=== PATIENT | male | born 1970 | race Native Hawaiian/Other Pacific Islander ===

== ENCOUNTER 2020-09-28 14:23 | Outpatient (REF) | payer OTHER, SELFPAY ==
--- NOTE | ~2020-09-28 | XR_ITS ---
EXAMINATION: XR HAND, LEFT CLINICAL INFORMATION: Injury COMPARISON: 02/12/2009 TECHNIQUE: PA, lateral, and oblique views of the left hand. FINDINGS: There is a fracture at the base of the 5th proximal phalanx with dorsal angulation. Possible remote, healed fracture at the dorsal aspect of the base of the 4th middle phalanx. There is fusion of the 2nd DIP joint. XR/XR hand LT min 3V IMPRESSION: Acute angulated fracture of the base of the 5th proximal phalanx.
== END 2020-09-28 14:24 | disposition home or self-care (01) ==
LOC: HO.HMGCX 14:23
PROVIDERS: PCP Internal Medicine; Visit Provider Nurse Practitioner Family
DX: S69.92XA Unspecified injury of left wrist, hand and finger(s), initial encounter (principal)
CPT/HCPCS: 73130

== ENCOUNTER 2020-10-10 08:32 | Outpatient (REF) | payer OTHER, SELFPAY ==
--- NOTE | ~2020-10-10 | XR_ITS ---
EXAMINATION: XR HAND, LEFT CLINICAL INFORMATION: Pain left hand. COMPARISON: None TECHNIQUE: PA, lateral, and oblique views of the left hand. FINDINGS: No visible acute fracture, dislocation or subluxation seen. There is diminished PIP and DIP joint space. No fracture or dislocation seen involving PIP joint left fifth digit.The soft tissues are normal. XR/XR hand LT min 3V IMPRESSION: No visible acute fracture or dislocation especially PIP joint fifth digit. Minimal loss of PIP and DIP joint space all digits left hand.
== END 2020-10-10 08:33 | disposition home or self-care (01) ==
LOC: HO.HOSX 08:32
PROVIDERS: Visit Provider Orthopaedic Surgery
DX: M79.642 Pain in left hand (principal); S62.617A Displaced fracture of proximal phalanx of left little finger, initial encounter for closed fracture
CPT/HCPCS: 73130; 99202

== ENCOUNTER 2020-10-11 11:55 | Day surgery (SDC) | payer OTHER, SELFPAY ==
--- NOTE | ~2020-10-11 | FL_ITS ---
EXAMINATION: XR FLUOROSCOPY WITH IMAGES CLINICAL INFORMATION: Finger ORIF. COMPARISON: None. TECHNIQUE: Fluoroscopy performed by Dorothy Morris. Fluoroscopy time: 29.1 seconds Dose: [id number] mGy-cm2 Images: 3 FINDINGS: The base of the 5th proximal phalanx 5th digit has been stabilized with 2 pins in alignment. No additional fractures seen. FL/FL guidance in OR IMPRESSION: Normal alignment proximal end proximal phalanx 5th digit status post ORIF.
[2020-10-11 12:16] VITALS: BMI 32.9
[2020-10-11 12:20] VITALS: BP 142/84; PULSE 82; RESP 18; TEMP 36.5; O2SAT 97
--- NOTE | 2020-10-11 12:33 | P.CONAN_ITS ---
[facility] Active Problems Active Problems: All Active Problems (Updated 10/10/20 @ 15:41 by Dorothy aguirre MD) Fracture of proximal phalanx of left little finger (Acute) Fracture, finger (Acute) Hand injury (Acute) Alcoholism (Acute) GERD without esophagitis (Acute) Obesity (BMI 30-39.9) (Acute) Anxiety (Acute) Insomnia (Acute) Gout (Acute) Sarcoidosis (Acute) Pure hypercholesterolemia (Acute) Asthma (Acute) Annual physical exam (Acute) Past Medical History Medical History Alcoholism Anxiety Asthma GERD without esophagitis Gout Insomnia Obesity (BMI 30-39.9) Pure hypercholesterolemia Sarcoidosis Family History Family History Father No problems noted. 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 Loose Loose/Missing/Broken Teeth: Yes Heart: RRR Assessment and Plan Assessment Anesthesia Assessment: Anesthesia Plan Discussed and Chart Reviewed Final Anesthetic Review NPO: Yes ASA Class: III Final Preanesthetic Review: No Changes in Pt Med Stat, Meds/Allgs Chart Revie wed, Consent Obtained/Reviewed and Anes Risks/Benef Reviewed Patient Risk: Intermediate Procedure Risk: Low Anesthetic Plan Anesthetic Plan: GA Disposition: Standard PACU
--- NOTE | 2020-10-11 14:30 | MHC.SHP ---
Pre-Procedural Eval Section B Chief Complaint: left little finger fx Allergies: Allergies Allergy/AdvReac Type Severity Reaction Status Date / Time ENVIRONMENTAL Allergy Unknown ITCHY Uncoded 05/16/20 16:36 THROAT Plan I have reviewed the history and physical and performed a pertinent physical examination on my patient. No changes have occurred unless specified.
--- NOTE | 2020-10-11 14:30 | W.PM.OPN ---
Operative Note Operative Note Date of Service: 10/11/20 Narrative: Operative Note Narrative: Preop diagnosis: 1. Left small finger proximal phalanx base fracture Postop diagnosis: Same Procedure: 1. Left small finger proximal phalanx base fracture closed reduction percutaneous pinning 2. Ulnar nerve block Surgeon: Dorothy Morris MD Anesthesia: General Findings: finger fracture Implants: 0.045 K-wires x2 Tourniquet time: None EBL: Minimal Specimen: None Drains: None Complications: None Disposition: Brought to the recovery room in stable condition Plan: Follow-up in 10-14 days for a wound check, postop radiographs and for placement in a short-arm finger spica cast or splint Anticipate K-wire removal in 4 weeks based on interval bony healing Educate the patient that full fracture healing anticipated in approximately 8-12 weeks. Indications: The patient is 50 years old with a 2-week-old left small finger proximal phalanx base fracture . The risks and benefits of operative treatment, including but not limited to risk of damage to blood vessels, nerves, tendons, infection, recurrence, delayed or nonunion of fracture, persistent pain or numbness, incomplete resolution of preoperative symptoms, or need for further surgery were discussed with the patient and they wished to proceed with surgery. Procedure: Once consent was obtained patient was brought back to the operating suite and placed in the operating table in a supine position. . Perioperative antibiotics and general anesthesia was administered by the anesthesia team. A tourniquet was applied to the proximal aspect of the left upper extremity and the limb was prepped and draped in a standard surgical fashion. Tourniquet was not inflated during the case. The FluoroScan was used during the case to assist with our fracture reduction and placement of all implants. A closed reduction was performed on the patient's left small finger proximal phalanx base fracture. A 0.045 K-wire was placed through the ulnar base of the proximal phalanx. This was advanced across the fracture site and into the shaft. A 2nd 0.045 K-wire was placed through the radial base of the proximal phalanx and similarly advanced across the fracture site and into the shaft. Fracture alignment was assessed for both angular and rotational malalignment. Once satisfied with our fracture reduction and implant placement, the K-wires were bent and cut short and pin caps applied. Final fluoroscopic images were then obtained. The wounds were copiously irrigated with normal saline. An ulnar nerve block was then performed by infiltrating about the ulnar nerve at the wrist with some 1% lidocaine with epinephrine for postop pain control. A Sterile dressing and short volar splint extending to the forearm was applied. The patient appears to have tolerated the procedure well and with no complications. All digits were well vascularized at the conclusion of the case.
[2020-10-11 15:21] VITALS: BP 128/73; PULSE 109; RESP 16; TEMP 36.3; O2SAT 99
[2020-10-11 15:26] VITALS: BP 127/64; PULSE 101; RESP 17; O2SAT 96
[2020-10-11 15:31] VITALS: BP 131/71; PULSE 91; RESP 17; O2SAT 95
[2020-10-11 15:36] VITALS: BP 134/81; PULSE 90; RESP 18; TEMP 36.3; O2SAT 95
== END 2020-10-11 16:11 | disposition home or self-care (01) ==
PROVIDERS: PCP Internal Medicine; Visit Provider Orthopaedic Surgery
PROC: (CPT 26727; principal; 2020-10-11 14:20)
DX: S62.617A Displaced fracture of proximal phalanx of left little finger, initial encounter for closed fracture (principal); X58.XXXA Exposure to other specified factors, initial encounter; Y93.9 Activity, unspecified; Y92.9 Unspecified place or not applicable; Y99.8 Other external cause status; J45.909 Unspecified asthma, uncomplicated; D86.9 Sarcoidosis, unspecified; K21.9 Gastro-esophageal reflux disease without esophagitis; Z79.899 Other long term (current) drug therapy; F17.210 Nicotine dependence, cigarettes, uncomplicated
CPT/HCPCS: 26727; J1100; J2250; J2405; J3010

== ENCOUNTER → 2020-10-16 09:49 | Outpatient (BNVA) | payer OTHER, SELFPAY | PROVIDERS: PCP Internal Medicine; Visit Provider Orthopaedic Surgery ==

== ENCOUNTER 2020-10-18 22:42 | Emergency (ER) | payer OTHER, SELFPAY ==
--- NOTE | ~2020-10-18 | XR_ITS ---
EXAMINATION: XR HAND, LEFT CLINICAL INFORMATION: Pain status post pinning COMPARISON: Hand radiographs 10/10/2020 TECHNIQUE: PA, lateral, and oblique views of the left hand. FINDINGS: 2 pins are present through the fracture of the proximal fifth phalanx. Some details obscured by the overlying bandages and dressings. No new fractures are seen. Alignment is excellent. XR/XR hand LT min 3V IMPRESSION: No abnormalities seen status post pinning proximal phalanx fifth digit.
[2020-10-18 22:49] VITALS: BP 115/61; PULSE 101; RESP 16; TEMP 36.8; O2SAT 94; BMI 32.9
--- NOTE | 2020-10-19 00:54 | ED.EXTPRO ---
HPI - Extremity Problem General Chief complaint: Extremity Problem Stated complaint: Hand swelling post op Time Seen by Provider: 10/19/20 00:12 Source: patient Mode of arrival: ambulatory Limitations: no limitations Related Data Previous Rx's Medication Instructions Recorded albuterol sulfate 90 mcg/actuation 2 puff PO Q6-8H PRN 30 Days #8.5 g 05/16/20 aerosol inhaler atorvastatin 10 mg tablet 10 mg PO DAILY 90 Days #90 tab 05/16/20 colchicine 0.6 mg tablet 0.6 mg PO DAILY 30 Days #30 tab 05/16/20 fluticasone propionate 110 1 puff INHALATION BID 30 Days #12 g 05/16/20 mcg/actuation HFA aerosol inhaler montelukast 10 mg tablet 10 mg PO DAILY 30 Days #30 tab 05/16/20 pyridoxine (vitamin B6) 100 mg 100 mg PO DAILY 30 Days #30 tab 05/16/20 tablet thiamine HCl (vitamin B1) 100 mg 100 mg PO DAILY 30 Days #30 tab 05/16/20 tablet trazodone 50 mg tablet 50 mg PO BEDTIME PRN 30 Days #30 05/16/20 tab oxycodone-acetaminophen 1 tab PO Q6H PRN #10 tab 10/11/20 oxycodone 5 mg PO BID PRN 3 Days #10 tab 10/19/20 Allergies Allergy/AdvReac Type Severity Reaction Status Date / Time ENVIRONMENTAL Allergy Unknown ITCHY Uncoded 10/18/20 22:54 THROAT Review of Systems Review of Systems: Constitutional: No Weight loss, No Fever, No Chills, No Night Sweats, No Fatigue, No Malaise ENT/Mouth: No Hearing loss, No Ear Pain, No Nasal Congestion, No Sinus Pain, No Hoarseness, No sore throat, No Rhinorrhea, No Swallowing Difficulty Eyes: No Eye Pain, No Swelling, No Redness, No Foreign Body, No Discharge, No Vision Changes Cardiovascular: No Chest Pain, No SOB, No Dyspnea on Exertion, No Orthopnea, No Edema, No Palpitations Respiratory: No Cough, No Sputum, No Wheezing, No Smoke Exposure, No Dyspnea Musculoskeletal: No joint pain, No Myalgias, No Joint Swelling, As noted HPI Skin: No Skin Lesions, No rash Neuro: No Weakness, No Numbness, No Paresthesias, No Loss of Consciousness, No Dizziness, No Headache Psych: No Social Issues Heme/Lymph: No Bruising, No Bleeding,No Lymphadenopathy Endocrine: No Polyuria, No Polydipsia, No Temperature Intolerance Yes all other systems are reviewed and are negative [facility] Past Medical History Medical History Alcoholism Anxiety Asthma GERD without esophagitis Gout Insomnia Obesity (BMI 30-39.9) Pure hypercholesterolemia Sarcoidosis Surgical History No pertinent past surgical history Family History Family History Father No problems noted. 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 Physical Exam Vital Signs: Vital Signs: Last Vital Signs Temp 98.2 F 10/18/20 22:49 Pulse 101 H 10/18/20 22:49 Resp 16 10/18/20 22:49 BP 115/61 10/18/20 22:49 Pulse Ox 94 10/18/20 22:49 Body Mass Index 32.9 reviewed Const: General: cooperative and healthy appearing; No acute distress or intoxicated appearing Nutritional Appearance: average body habitus Orientation/consciousness: patient oriented x3 HENMT: Head: Yes normal to inspection Ears: hearing grossly normal bilaterally Chest: Chest palpation & inspection: normal inspection of the chest Resp: Effort & Inspection: normal respiratory effort Cardio: Rhythm: regular rhythm Heart sounds: S1 normal heart sound present and S2 normal heart sound present : General: Yes no CVA tenderness Back/Spine/Pelvis: Back: no CVA tenderness Skin: Other: left hand with ulnar gutter splint. No obvious erythema or cellulitis. Very minimal swelling. Pulses within normal limits. Cap refill within normal limits. Pulse ox reads 100% on each finger. There is zerofoam dressing on the site. General skin exam: no rashes or lesions noted Neuro: General: patient oriented x3 Extrem: General: Yes normal to inspection Course Course Course Narrative: Interview 50-year-old male presents with complaint of pain at surgical site he is status post Left small finger proximal phalanx base fracture closed reduction percutaneous pinning on October [address] Morris. He has a splint on in place. Exam does not reveal any signs of acute infection. X-ray without any acute abnormalities. He is having pain at the surgical site I will give him analgesia for this. I did discuss case with Dr. Choi on-call Ortho given that it is 01:00 he is to call the office at 08:[address] Morris and get in to see her. Patient verbalized understanding and is clear with plan. MDM - Extremity (Nontraumatic) Imaging Data Hand x-ray: Radiologist's impression: [address] [id number] ReportSigned Patient: Hua Rose AMR#: [id number]: 1970Acct:[id number]/Sex: 50 / MADM Date: 10/18/20Loc: HO.EDAttending Dr: Ordering Physician: Gus Schultz NP Date of Service: 10/19/20 Procedure(s): XR hand LT min 3V Accession Number(s): [id number] cc: Gus Schultz NP~ EXAMINATION: XR HAND, LEFT CLINICAL INFORMATION: Pain status post pinning COMPARISON: Hand radiographs 10/10/2020 TECHNIQUE: PA, lateral, and oblique views of the left hand. FINDINGS: 2 pins are present through the fracture of the proximal fifth phalanx. Some details obscured by the overlying bandages and dressings. No new fractures are seen. Alignment is excellent. XR/XR hand LT min 3V IMPRESSION: No abnormalities seen status post pinning proximal phalanx fifth digit. Dictated By:TABATHA OLIVARES MDSigned By:<Electronically signed by TABATHA OLIVARES MD in OV>10/19/20 0050 DD/ 0012TD/TT: Pathology Supervisor: Discharge Plan Discharge Clinical Impression: Fracture of proximal phalanx of left little finger, Post-op pain Patient Disposition: Home, Self-Care Instructions: Pain Management After Surgery (DC), Splint Care (ED) Additional Instructions: Please take medication prescribed Please see Dr. Morris her hand surgeon in 7 hours in the office please call at 8 a.m. Monitor for any signs of infections review to X-ray showed no acute abnormality Splint care as instructed Prescription oxycodone for pain was sent over to her pharmacy Thank you Prescriptions: New oxycodone 5 mg tablet 5 mg PO BID PRN (Reason: pain) 3 Days Qty: 10 RF: 0 No Action oxycodone-acetaminophen 5-325 mg tablet 1 tab PO Q6H PRN (Reason: pain) Qty: 10 RF: 0 Flovent HFA 110 mcg/actuation HFA aerosol inhaler 1 puff inhalation BID 30 Days Qty: 12 RF: 12 albuterol sulfate 90 mcg/actuation HFA aerosol inhaler 2 puff PO Q6-8H PRN (Reason: shortness of breath or wheezing) 30 Days Qty: 8.5 RF: 12 atorvastatin 10 mg tablet 10 mg PO DAILY 90 Days Qty: 90 RF: 1 colchicine 0.6 mg tablet 0.6 mg PO DAILY 30 Days Qty: 30 RF: 5 montelukast 10 mg tablet 10 mg PO DAILY 30 Days Qty: 30 RF: 5 trazodone 50 mg tablet 50 mg PO BEDTIME PRN (Reason: insomnia) 30 Days Qty: 30 RF: 3 thiamine HCl (vitamin B1) 100 mg tablet 100 mg PO DAILY 30 Days Qty: 30 RF: 12 pyridoxine (vitamin B6) 100 mg tablet 100 mg PO DAILY 30 Days Qty: 30 RF: 12 Referrals: Dorothy Morris MD [Physician] - 1 day (Call office in the morning for follow-up)
[2020-10-19 01:08] VITALS: BP 120/89; PULSE 90; RESP 16; TEMP 36.9; O2SAT 100
[2020-10-19] MEDS: oxyCODONE HCl Immed Release 5 MG TABLET PO (01:14)
--- NOTE | 2020-10-19 01:18 | PC.NURSE ---
PT SPLINT TO RIGHT HAND WRAPPED REWRAPPED WITH NEW HEATHER WRAP +CMS TO FINGERS. RAMONA CHERY SPOKE WITH ORTHO THEY WILL SEE HIM IN OFFICE TOMORROW.
== END 2020-10-19 01:07 | disposition home or self-care (01) ==
PROVIDERS: Emergency Provider Emergency Medicine; PCP Internal Medicine
DX: G89.18 Other acute postprocedural pain (principal); S62.617D Displaced fracture of proximal phalanx of left little finger, subsequent encounter for fracture with routine healing; X58.XXXD Exposure to other specified factors, subsequent encounter
CPT/HCPCS: 73130; 99283; 99284

== ENCOUNTER 2020-10-22 09:37 | Outpatient (REF) | payer OTHER, SELFPAY ==
--- NOTE | ~2020-10-22 | XR_ITS ---
EXAMINATION: XR HAND, LEFT CLINICAL INFORMATION: Left hand pain COMPARISON: 10/19/2020 and 10/10/2020 TECHNIQUE: PA, lateral, and oblique views of the left hand. FINDINGS: Overlying splint has been removed. 2 pins traversing the fifth proximal phalanx appear well positioned without evidence of loosening. Left fifth proximal phalangeal fractures are well approximated. Soft tissues are mildly prominent. Alignment and articulations are maintained. Remaining bony structures are unremarkable in appearance. XR/XR hand LT min 3V IMPRESSION: Interval splint removal following pinning left fifth proximal phalangeal fracture. Hardware appears appropriate in position with satisfactory approximation of the fifth proximal phalangeal base fractures.
== END 2020-10-22 09:38 | disposition home or self-care (01) ==
LOC: HO.HOSX 09:37
PROVIDERS: Visit Provider Orthopaedic Surgery
DX: S62.617A Displaced fracture of proximal phalanx of left little finger, initial encounter for closed fracture (principal)
CPT/HCPCS: 73130; 99212

== ENCOUNTER 2020-10-26 10:30 | Outpatient (REF) | payer OTHER, SELFPAY ==
--- NOTE | ~2020-10-26 | XR_ITS ---
EXAMINATION: XR CHEST CLINICAL INFORMATION: Moderate persistent asthma COMPARISON: 03/14/2019 TECHNIQUE: 2 views of the chest were obtained. FINDINGS: Lungs are clear. No focal consolidation or mass. Normal pulmonary vascularity. No pleural effusion or pneumothorax. Normal heart size. Right paratracheal and bilateral bilateral hilar prominence. XR/XR chest 2V IMPRESSION: Right paratracheal and bilateral hilar prominence similar to the prior study 03/14/2019. Earlier chest CT 02/02/2014 showed lymphadenopathy consistent with history of sarcoid.
[2020-10-26 11:13] LABS: Basophils Percent Auto 0.5 % (0-2); Eosinophils Absolute Auto 0.5 X10*3/uL (0.0-0.4); Eosinophils Percent Auto 8.4 % (0-4); Hematocrit 46.6 % (42-52); Hemoglobin 15.6 g/dl (14.0-18.0); Imm Gran Abs Auto 0.02 X10*3/uL (0.00-0.03); Imm Gran Pct Auto 0.4 % (0.0-0.4); Lymphocytes Absolute Auto 1.9 X10*3/uL (1.2-4.9); Lymphocytes Percent Auto 32.4 % (20-40); MANUAL DIFF FLAG SCAN; Mean Corpuscular HGB Conc 33.5 g/dl (31.0-36.0); Mean Corpuscular Hemoglobin 29.9 pg (27.0-33.0); Mean Corpuscular Volume 89.4 fL (80-98); Mean Platelet Volume 9.9 fL (9.4-12.4); Monocytes Absolute Auto 0.5 X10*3/uL (0.1-1.2); Monocytes Percent Auto 9.3 % (2-11); Neutrophils Absolute Auto 2.8 X10*3/uL (2.0-8.3); PLT CLUMP 1; Red Blood Count 5.21 X10*6/uL (4.60-5.80); Red Cell Distribution Width 12.8 % (11.0-16.0); SCAN SMEAR FLAG 1
[2020-10-26 11:27] LABS: Platelet Count 138 X10*3/uL (160-400); White Blood Count 5.6 X10*3/uL (4.8-10.8)
[2020-10-26 11:51] LABS: Alanine Aminotransferase 51 U/L (0-40); Albumin Level 4.4 g/dL (3.5-5.0); Alkaline Phosphatase 113 U/L (39-117); Anion Gap 14 (12-20); Aspartate Amino Transferase 70 U/L (5-37); Bilirubin Total 0.8 mg/dL (0.0-1.0); Blood Urea Nitrogen 16 mg/dL (9-16); Calcium 9.9 mg/dL (8.4-10.2); Carbon Dioxide 26 mmol/L (22-29); Chloride 102 mmol/L (96-108); Cholesterol 184 mg/dL; Estimated Glomerular Filt Rate > 60; Glucose Fasting 87 mg/dL (60-99); HDL Cholesterol 36 mg/dL; LDL Cholesterol Calculated 122 mg/dl; Potassium 4.5 mmol/L (3.3-5.1); Sodium 137 mmol/L (135-145); Total Protein 7.2 g/dL (6.5-8.0); Triglycerides 131 mg/dL
[2020-10-26 12:03] LABS: Uric Acid 7.5 mg/dL (3.4-7.0)
[2020-10-26 12:11] LABS: TSH reflex Free T4 1.62 uIU/mL (0.32-4.0); Vitamin D 25-OH Total 26.9 ng/mL (>30)
[2020-10-26 12:22] LABS: Folate 11.4 ng/mL (> or = 4.0); Vitamin B12 397 pg/mL (200-900)
[2020-10-26 13:02] LABS: Glucose Urine UA NEG (NEG); Leukocyte Esterase Urine NEG (NEG); Nitrite Urine NEG (NEG); Specific Gravity - Urine 1.025 (1.005-1.025); Urine Blood NEG (NEG); Urine Ketones NEG (NEG); Urine Protein NEG (NEG-TRACE)
[2020-10-26 13:06] LABS: Appearance Urine CLEAR; Color Urine YELLOW
== END 2020-10-26 10:31 | disposition home or self-care (01) ==
LOC: HO.XRAY 10:30
PROVIDERS: PCP Internal Medicine; Visit Provider Internal Medicine
DX: Z00.00 Encounter for general adult medical examination without abnormal findings (principal); S62.617D Displaced fracture of proximal phalanx of left little finger, subsequent encounter for fracture with routine healing; F10.20 Alcohol dependence, uncomplicated; L03.90 Cellulitis, unspecified; E78.00 Pure hypercholesterolemia, unspecified; D86.9 Sarcoidosis, unspecified; F41.9 Anxiety disorder, unspecified; M10.9 Gout, unspecified; J45.41 Moderate persistent asthma with (acute) exacerbation; K21.9 Gastro-esophageal reflux disease without esophagitis
CPT/HCPCS: 36415; 71046; 80053; 80061; 81003; 82306; 82607; 82746; 84153; 84443; 84550; 85025; 99212

== ENCOUNTER 2020-10-29 21:07 | Emergency (ER) | payer OTHER, SELFPAY ==
--- NOTE | ~2020-10-29 | XR_ITS ---
EXAMINATION: XR ANKLE/FOOT CLINICAL INFORMATION: Trauma COMPARISON: None TECHNIQUE: AP and oblique views of the ankle. AP, oblique and lateral views of the left foot FINDINGS: There is a transversely oriented fracture through the fifth metatarsal base with 2 mm displacement, extending to the articulation with the cuboid. No additional fractures. Ankle mortise is congruent. Talar dome intact. No ankle joint effusion. Achilles tendon enthesopathy. Degenerative changes of the first metatarsophalangeal joint and interphalangeal joint of the great toe. XR/XR foot LT 2V IMPRESSION: Mildly displaced pseudo-Carias fracture as described
--- NOTE | ~2020-10-29 | XR_ITS ---
EXAMINATION: XR ANKLE/FOOT CLINICAL INFORMATION: Trauma COMPARISON: None TECHNIQUE: AP and oblique views of the ankle. AP, oblique and lateral views of the left foot FINDINGS: There is a transversely oriented fracture through the fifth metatarsal base with 2 mm displacement, extending to the articulation with the cuboid. No additional fractures. Ankle mortise is congruent. Talar dome intact. No ankle joint effusion. Achilles tendon enthesopathy. Degenerative changes of the first metatarsophalangeal joint and interphalangeal joint of the great toe. XR/XR ankle LT 2V IMPRESSION: Mildly displaced pseudo-Carias fracture as described
[2020-10-29 21:11] VITALS: BP 126/83; PULSE 106; RESP 18; TEMP 36.1; O2SAT 95; BMI 34.0
--- NOTE | 2020-10-29 21:33 | ED_ITS ---
HPI - Extremity Injury (Lower) General Chief Complaint: Extremity Injury, Lower Stated Complaint: Leg injury Time Seen by Provider: 10/29/20 21:32 Source: patient Mode of arrival: ambulatory History of Present Illness HPI Narrative: 50-year-old male with known alcohol dependence and has had multiple alcoholic beverages today and was mowing his lawn, states that he stepped off the edge of an uneven portion of the yd causing his Left ankle to roll. He denies hitting his head, loss of consciousness. Related Data Previous Rx's Medication Instructions Recorded albuterol sulfate 90 mcg/actuation 2 puff PO Q6-8H PRN 30 Days #8.5 g 05/16/20 aerosol inhaler atorvastatin 10 mg tablet 10 mg PO DAILY 90 Days #90 tab 05/16/20 colchicine 0.6 mg tablet 0.6 mg PO DAILY 30 Days #30 tab 05/16/20 fluticasone propionate 110 1 puff INHALATION BID 30 Days #12 g 05/16/20 mcg/actuation HFA aerosol inhaler montelukast 10 mg tablet 10 mg PO DAILY 30 Days #30 tab 05/16/20 pyridoxine (vitamin B6) 100 mg 100 mg PO DAILY 30 Days #30 tab 05/16/20 tablet thiamine HCl (vitamin B1) 100 mg 100 mg PO DAILY 30 Days #30 tab 05/16/20 tablet trazodone 50 mg tablet 50 mg PO BEDTIME PRN 30 Days #30 05/16/20 tab oxycodone-acetaminophen 1 tab PO Q6H PRN #10 tab 10/11/20 oxycodone 5 mg PO BID PRN 3 Days #10 tab 10/19/20 amoxicillin 875 mg-potassium 1 tab PO Q12H #20 tab 10/22/20 clavulanate 125 mg tablet hydrocodone 5 mg-acetaminophen 325 1 tab PO Q4-6H PRN #10 tab 10/22/20 mg tablet Allergies Allergy/AdvReac Type Severity Reaction Status Date / Time ENVIRONMENTAL Allergy Unknown ITCHY Uncoded 10/29/20 21:33 THROAT Review of Systems Review of Systems: pertinent positives and negatives as stated in HPI 10 point review of systems is otherwise negative. PMFSH Past Medical History Source: nursing notes reviewed Medical History Alcoholism Anxiety Asthma GERD without esophagitis Gout Insomnia Obesity (BMI 30-39.9) Pure hypercholesterolemia Sarcoidosis Surgical History No pertinent past surgical history Family History Family History Father No problems noted. 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 GENERAL: Well developed, well nourished, in no acute distress. HEAD: Normocephalic/atraumatic EYES: PERRLA, EOMI OROPHARYNX: no oral lesions noted, posterior pharynx clear LUNGS: Normal breath sounds. No adventitious sounds or accessory muscle use. SpO2<95> CARDIOVASCULAR: Regular rate and rhythm without noted murmurs ABDOMEN: Soft, non-tender, non-distended with bowel sounds. LEFT ANKLE/ FOOT: Mild lateral malleolar swelling, capillary refill less than 3 seconds, palpable DP/PT, sensation intact, pain at mid foot on palpation SKIN: Inspection of the skin reveals no rashes NEUROLOGIC: Alert and oriented x 4. Strength and sensation to light touch were grossly intact x 4. Course Course Course Narrative: 50-year-old male with history and clinical presentation consistent either sprain or fracture and on review of imaging there is a zone 2 fracture of the left 5th metatarsal consistent with a Carias fracture. [place] text was sent to orthopedic surgeon on-call and patient received Balbir wrap, postop shoe, as well as 1 crutch ( he has a cast on his left upper extremity currently ). He was discharged in stable condition. Discharge Plan Discharge Clinical Impression: Carias fracture Patient Disposition: Home, Self-Care Instructions: Foot Fracture in Adults (ED), Crutch Instructions (ED), Post Surgical Shoe (ED) Additional Instructions: 1. Tylenol 1000 mg, por v?a oral, cada 6 horas seg?n sea necesario para controlar el dolor. No exceda los 4000 mg en 24 horas. 2. Ibuprofeno 400 mg, por v?a oral con leche o alimentos, cada 6 horas seg?n sea necesario para controlar el dolor. Recomiende carlee esto con Tylenol para un mayor alivio de los s?ntomas. 3. Aplique hielo hemanth 10 a 15 minutos sobre la piel no expuesta, de 3 a 4 veces al d?a. 4. Se le ghotra remitido para cirug?a ortop?dica y debe llamar al consultorio por la ma?jose para hacer los arreglos necesarios para la evaluaci?n. Regrese a la otto de emergencias si jes s?ntomas empeoran de manera aguda. Prescriptions: No Action oxycodone-acetaminophen 5-325 mg tablet 1 tab PO Q6H PRN (Reason: pain) Qty: 10 RF: 0 oxycodone 5 mg tablet 5 mg PO BID PRN (Reason: pain) 3 Days Qty: 10 RF: 0 Flovent HFA 110 mcg/actuation HFA aerosol inhaler 1 puff inhalation BID 30 Days Qty: 12 RF: 12 albuterol sulfate 90 mcg/actuation HFA aerosol inhaler 2 puff PO Q6-8H PRN (Reason: shortness of breath or wheezing) 30 Days Qty: 8.5 RF: 12 atorvastatin 10 mg tablet 10 mg PO DAILY 90 Days Qty: 90 RF: 1 colchicine 0.6 mg tablet 0.6 mg PO DAILY 30 Days Qty: 30 RF: 5 montelukast 10 mg tablet 10 mg PO DAILY 30 Days Qty: 30 RF: 5 trazodone 50 mg tablet 50 mg PO BEDTIME PRN (Reason: insomnia) 30 Days Qty: 30 RF: 3 thiamine HCl (vitamin B1) 100 mg tablet 100 mg PO DAILY 30 Days Qty: 30 RF: 12 pyridoxine (vitamin B6) 100 mg tablet 100 mg PO DAILY 30 Days Qty: 30 RF: 12 amoxicillin-pot clavulanate [Augmentin] 875-125 mg tablet 1 tab PO Q12H Qty: 20 RF: 0 hydrocodone-acetaminophen 5-325 mg tablet 1 tab PO Q4-6H PRN (Reason: pain) Qty: 10 RF: 0 Referrals: Doc Marrero MD [Primary Care Provider] - 2 days Dorothy Morris MD [Physician] - 2 days ( evaluation treatment for zone 2 left 5th metatarsal fracture.) Print Language: Salvadorean
--- NOTE | 2020-10-29 22:24 | PC.NURSE ---
PT REFUDED DONYA OR MARIE. PT STATES I HAVE THAT AT HOME. ALL I WANT IS TO KNOW IF ITS BROKEN. I DON'T WANT TO STAY HERE ALL NIGHT. EXPLAINED WE ARE WAITING FOR THE XRAY REPORT.
[2020-10-29 23:00] VITALS: BP 132/83; PULSE 89; RESP 17; O2SAT 97
== END 2020-10-29 23:46 | disposition home or self-care (01) ==
PROVIDERS: Emergency Provider Student in an Organized Health Care Education/Training Program; PCP Internal Medicine
DX: S92.355A Nondisplaced fracture of fifth metatarsal bone, left foot, initial encounter for closed fracture (principal); W10.2XXA Fall (on)(from) incline, initial encounter; Z91.81 History of falling; F10.20 Alcohol dependence, uncomplicated; Y93.H2 Activity, gardening and landscaping; Y92.017 Garden or yard in single-family (private) house as the place of occurrence of the external cause; Y99.9 Unspecified external cause status
CPT/HCPCS: 73600; 73620; 99283; 99284

== ENCOUNTER 2020-11-16 07:27 | Outpatient (REF) | payer OTHER, SELFPAY ==
--- NOTE | ~2020-11-16 | XR_ITS ---
EXAMINATION: XR FOOT, LEFT CLINICAL INFORMATION: Pain COMPARISON: Previous x-ray 10/29/2020 TECHNIQUE: AP, lateral, and oblique views of the left foot. FINDINGS: There is a transverse fracture through the base of the fifth metatarsal bone intra-articular with the metatarsal cuboid joint. This appears unchanged from previous exam. There is arthritis at the IP joint and MTP joint of the great toe. There is a small calcaneal spur at the Achilles tendon insertion. XR/XR foot LT min 3V IMPRESSION: No change in a fracture of the base of the fifth metatarsal bone.
--- NOTE | ~2020-11-16 | XR_ITS ---
EXAMINATION: XR HAND, LEFT CLINICAL INFORMATION: Fracture COMPARISON: Previous x-ray most recent 10/22/2020 TECHNIQUE: PA, lateral, and oblique views of the left hand. Repeat 3 views of the left hand post hardware removal were performed. FINDINGS: Initial images demonstrate 2 K wires across the MTP joint of the 5th finger. There is a healing fracture of the base of the proximal phalanx of the 5th finger. Fracture line is still seen. There is bony callus formation. The bones appear osteopenic. There is arthritis at the DIP joint of the 2nd finger. Repeat images following hardware removal demonstrate no change in appearance of the nondisplaced fracture of the base of the proximal phalanx of the 5th finger. XR/XR hand LT min 3V IMPRESSION: Healing fracture of the proximal phalanx of the 5th finger. No change in appearance of fracture post orthopedic hardware removal.
--- NOTE | ~2020-11-16 | XR_ITS ---
EXAMINATION: XR HAND, LEFT CLINICAL INFORMATION: Fracture COMPARISON: Previous x-ray most recent 10/22/2020 TECHNIQUE: PA, lateral, and oblique views of the left hand. Repeat 3 views of the left hand post hardware removal were performed. FINDINGS: Initial images demonstrate 2 K wires across the MTP joint of the 5th finger. There is a healing fracture of the base of the proximal phalanx of the 5th finger. Fracture line is still seen. There is bony callus formation. The bones appear osteopenic. There is arthritis at the DIP joint of the 2nd finger. Repeat images following hardware removal demonstrate no change in appearance of the nondisplaced fracture of the base of the proximal phalanx of the 5th finger. XR/XR hand LT min 3V IMPRESSION: Healing fracture of the proximal phalanx of the 5th finger. No change in appearance of fracture post orthopedic hardware removal.
== END 2020-11-16 07:28 | disposition home or self-care (01) ==
LOC: HO.HOSX 07:27
PROVIDERS: Visit Provider Physician Assistant
DX: S62.617D Displaced fracture of proximal phalanx of left little finger, subsequent encounter for fracture with routine healing (principal); S99.192D Other physeal fracture of left metatarsal, subsequent encounter for fracture with routine healing; F17.210 Nicotine dependence, cigarettes, uncomplicated; X58.XXXD Exposure to other specified factors, subsequent encounter; Z72.89 Other problems related to lifestyle
CPT/HCPCS: 28470; 29405; 73130; 73630; 99212

== ENCOUNTER 2020-12-05 15:14 | Outpatient (REF) | payer OTHER, SELFPAY ==
--- NOTE | ~2020-12-05 | XR_ITS ---
EXAMINATION: XR FOOT, LEFT CLINICAL INFORMATION: Left foot pain. COMPARISON: Left foot radiographs dated 11/16/2020. TECHNIQUE: AP, lateral, and oblique views of the left foot. FINDINGS: Redemonstration of a 5th metatarsal fracture in unchanged anatomic alignment with a fracture gap measuring approximately 0.2 cm. No significant interval change in the appearance of the fracture. No acute fracture or dislocation. Degenerative arthritis redemonstrated at the 1st metatarsophalangeal and interphalangeal joints. Dorsal calcaneal enthesophytes. XR/XR foot LT min 3V IMPRESSION: Fifth metatarsal fracture, unchanged when compared to the prior examination.
== END 2020-12-05 15:15 | disposition home or self-care (01) ==
LOC: HO.HOSX 15:14
PROVIDERS: PCP Internal Medicine; Visit Provider Physician Assistant
DX: M79.672 Pain in left foot (principal)
CPT/HCPCS: 73630

== ENCOUNTER 2020-12-28 09:13 | Outpatient (REF) | payer OTHER, SELFPAY | END 2020-12-28 09:14 | disposition home or self-care (01) | LOC: HO.HOSX 09:13 | PROVIDERS: Visit Provider Physician Assistant | DX: Z13.89 Encounter for screening for other disorder (principal) ==

== ENCOUNTER 2021-01-02 13:56 | Outpatient (REF) | payer OTHER, SELFPAY | END 2021-01-02 13:57 | disposition home or self-care (01) | LOC: HO.HMGCLDS 13:56 | PROVIDERS: PCP Internal Medicine; Visit Provider Internal Medicine | DX: Z20.822 Contact with and (suspected) exposure to COVID-19 (principal) | CPT/HCPCS: C9803; U0003; U0005 ==

== ENCOUNTER 2021-02-22 08:34 | Outpatient (REF) | payer OTHER, SELFPAY ==
[2021-02-22 08:47] LABS: MANUAL DIFF FLAG NO
[2021-02-22 09:14] LABS: Basophils Percent Auto 0.6 % (0-2); Eosinophils Absolute Auto 0.6 X10*3/uL (0.0-0.4); Eosinophils Percent Auto 9.5 % (0-4); Hematocrit 48.3 % (42-52); Hemoglobin 16.1 g/dl (14.0-18.0); Imm Gran Abs Auto 0.02 X10*3/uL (0.00-0.03); Imm Gran Pct Auto 0.3 % (0.0-0.4); Lymphocytes Absolute Auto 2.4 X10*3/uL (1.2-4.9); Lymphocytes Percent Auto 37.8 % (20-40); Mean Corpuscular HGB Conc 33.3 g/dl (31.0-36.0); Mean Corpuscular Hemoglobin 30.1 pg (27.0-33.0); Mean Corpuscular Volume 90.3 fL (80-98); Monocytes Absolute Auto 0.6 X10*3/uL (0.1-1.2); Monocytes Percent Auto 10.1 % (2-11); Neutrophils Absolute Auto 2.6 X10*3/uL (2.0-8.3); Neutrophils Percent Auto 41.7 % (45-73); Platelet Count 154 X10*3/uL (160-400); Red Blood Count 5.35 X10*6/uL (4.60-5.80); Red Cell Distribution Width 12.7 % (11.0-16.0); White Blood Count 6.2 X10*3/uL (4.8-10.8)
[2021-02-22 09:48] LABS: Alanine Aminotransferase 28 U/L (0-40); Albumin Level 4.5 g/dL (3.5-5.0); Alkaline Phosphatase 125 U/L (39-117); Anion Gap 12 (12-20); Aspartate Amino Transferase 44 U/L (5-37); Bilirubin Total 0.8 mg/dL (0.0-1.0); Blood Urea Nitrogen 15 mg/dL (9-16); Calcium 9.7 mg/dL (8.4-10.2); Carbon Dioxide 27 mmol/L (22-29); Chloride 105 mmol/L (96-108); Cholesterol 188 mg/dL; Estimated Glomerular Filt Rate > 60; Glucose Fasting 100 mg/dL (60-99); HDL Cholesterol 33 mg/dL; LDL Cholesterol Calculated 122 mg/dl; Potassium 4.2 mmol/L (3.3-5.1); Sodium 140 mmol/L (135-145); Total Protein 7.4 g/dL (6.5-8.0); Triglycerides 167 mg/dL
[2021-02-22 09:59] LABS: Appearance Urine CLEAR; Color Urine YELLOW; Glucose Urine UA NEG (NEG); Leukocyte Esterase Urine NEG (NEG); Nitrite Urine NEG (NEG); Specific Gravity - Urine >= 1.030 (1.005-1.025); Urine Blood NEG (NEG); Urine Ketones NEG (NEG); Urine Protein NEG (NEG-TRACE)
[2021-02-22 10:00] LABS: Uric Acid 7.8 mg/dL (3.4-7.0)
== END 2021-02-22 08:35 | disposition home or self-care (01) ==
LOC: HO.LAB 08:34
PROVIDERS: PCP Internal Medicine; Visit Provider Internal Medicine
DX: E78.00 Pure hypercholesterolemia, unspecified (principal); I10 Essential (primary) hypertension; R79.89 Other specified abnormal findings of blood chemistry; M10.00 Idiopathic gout, unspecified site
CPT/HCPCS: 36415; 80053; 80061; 81003; 84443; 84550; 85025

== ENCOUNTER 2021-07-24 04:52 | Emergency (ER) | payer OTHER, SELFPAY ==
--- NOTE | ~2021-07-24 | XR_ITS ---
EXAMINATION: XR HAND, LEFT CLINICAL INFORMATION: Pain COMPARISON: 11/16/2020 TECHNIQUE: PA, lateral, and oblique views of the left hand. XR/XR hand LT 2V FINDINGS/IMPRESSION: No acute fracture or dislocation. Previously seen fracture of the fifth proximal metaphysis has healed. Ankylosis of the second distal interphalangeal joint. Soft tissues unremarkable.
[2021-07-24 05:35] VITALS: BP 118/80; PULSE 99; RESP 18; TEMP 36.6; O2SAT 95; BMI 28.1
[2021-07-24 05:42] VITALS: BP 118/79; PULSE 88; RESP 18; TEMP 36.7; O2SAT 94
--- NOTE | 2021-07-24 05:50 | ED_ITS ---
HPI - General Adult General Chief complaint: Extremity Problem Stated complaint: arm pain Time Seen by Provider: 07/24/21 05:48 Source: patient Mode of arrival: ambulatory Limitations: no limitations History of Present Illness HPI narrative: 50 years old male came in for evaluation of left hand pain and itching rashes on the distal forearms bilateral. Patient was working in the basement installing a drop ceiling, patient started to have itching and rashes on the distal forearms bilaterally, also pain in the left and, no trauma or injury to the hand, patient declined exposure to chemicals, no change in his normal daily routine. Patient also declined any shortness of breath or throat swelling. Related Data Previous Rx's Medication Instructions Recorded pyridoxine (vitamin B6) 100 mg 100 mg PO DAILY 30 Days #30 tab 05/16/20 tablet thiamine HCl (vitamin B1) 100 mg 100 mg PO DAILY 30 Days #30 tab 05/16/20 tablet trazodone 50 mg tablet 50 mg PO BEDTIME PRN 30 Days #30 05/16/20 tab hydrocodone 5 mg-acetaminophen 325 1 tab PO Q4-6H PRN #10 tab 10/22/20 mg tablet albuterol sulfate 2.5 mg/0.5 mL 2.5 mg (0.5 mL) CONTINUOUS 11/05/20 solution for nebulization NEBULIZATION QID PRN 30 Days #120 ea colchicine 0.6 mg tablet 0.6 mg PO DAILY 30 Days #30 tab 11/05/20 atorvastatin 10 mg tablet 10 mg PO DAILY 90 Days #90 tab 02/22/21 montelukast 10 mg tablet 10 mg PO DAILY 30 Days #30 tab 02/22/21 albuterol sulfate 90 mcg/actuation 2 puff PO Q6-8H PRN 30 Days #8.5 g 06/14/21 aerosol inhaler fluticasone propionate 110 1 puff INHALATION BID 30 Days #12 g 06/14/21 mcg/actuation HFA aerosol inhaler (Flovent HFA) omeprazole 20 mg capsule,delayed 20 mg PO DAILY 30 Days #30 cap 06/14/21 release prednisone 10 mg tablets in a dose See Rx Instructions PO PER PKG DIR 06/14/21 pack 8 Days #20 tab diphenhydramine HCl 25 mg tablet 25 mg PO TID PRN #14 tab 07/24/21 (Benadryl Allergy) Allergies Allergy/AdvReac Type Severity Reaction Status Date / Time ENVIRONMENTAL Allergy Unknown ITCHY Uncoded 06/14/21 15:37 THROAT Review of Systems Review of Systems: All other systems are reviewed and are negative Constitutional: Reports as per HPI and Reports no additional constitutional complaints Eyes: Reports as per HPI and Reports no additional eye complaints Reports system reviewed and no additional complaints, except as documented Cardiovascular: Reports as per HPI and Reports no additional cardiovascular complaints Respiratory: Reports as per HPI and Reports no additional respiratory complaints Gastrointestinal: Reports as per HPI and Reports no additional gastrointestinal complaints Genitourinary: Reports no additional female genitourinary complaints Musculoskeletal: Reports no additional musculoskeletal complaints Skin/Breast: Reports system reviewed and no additional complaints, except as docu Psychiatric: Reports no additional psychiatric complaints Endocrine: Reports no additional endocrine complaints Hematologic/Lymphatic: Reports no additional hematologic/lymphatic complaints Allergic/Immunologic: Reports no additional allergic/immunologic complaints Reports system reviewed and no additional complaints, except as documented and Reports Abnormal speech present [facility] Past Medical History Medical History Alcoholism Anxiety Asthma Elevated LFTs GERD without esophagitis Gout Insomnia Obesity (BMI 30-39.9) Pure hypercholesterolemia Sarcoidosis Surgical History No pertinent past surgical history Family History Family History Father No problems noted. Mother Diabetes Social History Social History Housing: House Alcohol intake: current Alcohol intake frequency: a few times a week Alcohol type: beer Patient Tobacco Use Status: Current everyday Tobacco user Cigarettes Per Day: 2 Second Hand Smoke Exposure: Yes Advance Directives: No service: No Current occupational status: disabled Physical Exam ED Vital Signs: Vital Signs - 24 hr 07/24/21 05:35 07/24/21 05:42 Temperature 98 F 98.0 F Pulse Rate 99 88 Respiratory Rate 18 18 Blood Pressure 118/80 118/79 Pulse Oximetry 95 94 BMI result Body Mass Index 28.1 Vital signs have been reviewed as appeared to be correct. Blood pressure normal. Heart rate normal. Respiration rate normal. Temperature normal. Oxygen saturation normal. Appearance: Alert. Oriented X3. No acute distress. Head: Normal external exam. Normocephalic. Atraumatic. No Haines signs noted. No raccoon eyes noted Eyes: PERRLA. EOMI. Conjunctiva and sclera normal. Eyelids normal. ENT: TM's Normal. Pharynx normal. Uvula midline. Moist mucous membranes. No trismus noted. No drooling noted. No muffled voice noted. Neck: Normal inspection. Neck supple. FROM. No adenopathy. Thyroid Normal. No meningeal signs. No neck mass noted. CVS: Normal heart rate and rhythm. Heart sound normal. No murmurs noted. Pulses normal throughout. Respiratory: No respiratory distress. Painless inspiration. Breath sounds normal. No wheezes/rales/rhonchi noted. Chest nontender. No accessory muscle usage noted or decreased air movement noted. Abdomen: Soft and nontender. Bowel sounds normal in all 4 quadrants. No distention noted. No organomegaly noted. No visible injury noted. Back: No CVA tenderness. Full range of motion noted. Skin: Fine papular rashes on the distal forearms bilaterally on both cervices of the forearm. Extremities: Left hand exam: Mild tenderness at the base of 2nd metacarpal bone, no step-off, neurovascular exam is intact. Neuro: Oriented X 3. Cranial nerve exam: II-XII are grossly intact No motor deficit. No sensory deficit. Reflexes normal. Course Course Course Narrative: Assessment and plan. Patient developed a fine papular rash on both distal forearm that is itching after working at the basement installing a drop ceiling, appears to be contact dermatitis improved with Benadryl and 1 dose of prednisone. Patient is known to have chronic alcoholic drinking problem. Left hand pain with negative hand x-ray. Medical Decision Making Imaging Data Left hand x-ray: Attestation: I personally reviewed and interpreted this imaging study as follows: Radiologist's impression: No fracture or dislocation. Discharge Plan Discharge Clinical Impression: Contact dermatitis, Hand pain, left Patient Disposition: Home, Self-Care Instructions: Contact Dermatitis (ED) Prescriptions: New diphenhydramine HCl [Benadryl Allergy] 25 mg tablet 25 mg PO TID PRN (Reason: itching) Qty: 14 0RF No Action trazodone 50 mg tablet 50 mg PO BEDTIME PRN (Reason: insomnia) 30 Days Qty: 30 3RF thiamine HCl (vitamin B1) 100 mg tablet 100 mg PO DAILY 30 Days Qty: 30 12RF pyridoxine (vitamin B6) 100 mg tablet 100 mg PO DAILY 30 Days Qty: 30 12RF colchicine 0.6 mg tablet 0.6 mg PO DAILY 30 Days Qty: 30 5RF albuterol sulfate 2.5 mg/0.5 mL solution for nebulization 2.5 mg continuous nebulization QID PRN (Reason: shortness of breath or wheezing) 30 Days Qty: 120 3RF Rx Instructions: 4 times a day as needed montelukast 10 mg tablet 10 mg PO DAILY 30 Days Qty: 30 5RF atorvastatin 10 mg tablet 10 mg PO DAILY 90 Days Qty: 90 1RF albuterol sulfate 90 mcg/actuation HFA aerosol inhaler 2 puff PO Q6-8H PRN (Reason: shortness of breath or wheezing) 30 Days Qty: 8.5 12RF Flovent HFA 110 mcg/actuation HFA aerosol inhaler 1 puff inhalation BID 30 Days Qty: 12 12RF prednisone 10 mg tablets,dose pack See Rx Instructions PO PER PKG DIR 8 Days Qty: 20 0RF Rx Instructions: 4 tablets x 2 days, then 3 tablets x 2 days, then 2 tablets x 2 days, then 1 tablet x 2 days omeprazole 20 mg capsule,delayed release(DR/EC) 20 mg PO DAILY 30 Days Qty: 30 3RF hydrocodone-acetaminophen 5-325 mg tablet 1 tab PO Q4-6H PRN (Reason: pain) Qty: 10 0RF Referrals: Doc Marrero MD [Physician] - 2 days
--- NOTE | 2021-07-24 06:06 | PC.NURSE ---
PT admitted that he has been drinking too much for a long time and wants help to get sober. PT is requesting services for detox.
[2021-07-24] MEDS: diphenhydrAMINE HCL 25 MG TABLET PO (06:29)
[2021-07-24] MEDS: predniSONE 20 MG TABLET 40 MG PO (06:29)
[2021-07-24 07:56] VITALS: BP 143/95; PULSE 85; RESP 14; TEMP 36.5; O2SAT 97
[2021-07-24 09:52] VITALS: BP 124/74; PULSE 91; RESP 12; TEMP 36.7; O2SAT 95
--- NOTE | 2021-07-24 10:18 | PC.NURSE ---
nad, eating breakfast, financial wellness coach in to see the pt as he's interested in detox
--- NOTE | 2021-07-24 13:02 | MHC.RECOVRN ---
Met with pt in ED20 to discuss substance use. Pt reports drinking 12 beers daily x 1 week, last use last night. Prior to last week, pt reports drinking beer and rum all my life. Pt denies ever receiving tx for AUD. Pt denies other substances. Pt reports experiencing homelessness, however, may stay with his mother if d/c'd. Pt denies intoxication currently, denies withdrawal symptoms. Pt resting comfortably in bed. Pt would like to go to ATS level of care. Discussed with RC and RN.
--- NOTE | 2021-07-24 13:08 | PC.NURSE ---
alert, speech clrear, skin wpd, informed of need for shetty and etoh level
[2021-07-24 13:15] VITALS: BP 131/83; PULSE 93; RESP 14; O2SAT 95
--- NOTE | 2021-07-24 13:24 | MHC.RECOVSUP ---
? Reason for consult:Recovery Support o Current location: ED 20 o Identified substance use concern: ETOH - Seeking ATS (detox) - Support ? Intervention: o Harm reduction discussion ? Plan: o Bed search in progress to ? Additional information:Patient seeking detox....waiting to hear from [facility] about his approval to the program.
[2021-07-24 13:36] LABS: Ethanol 146 mg/dL
[2021-07-24 13:38] LABS: Amphetamine Screen Urine Not Detected (Not Detect); Barbiturates, Urine Not Detected (Not Detect); Benzodiazepines Screen Urine Not Detected (Not Detect); Cannabinoid Screen Urine Not Detected (Not Detect); Cocaine Screen Urine Not Detected (Not Detect); Fentanyl, urine Not Detected (Not Detect); Phencyclidine Screen Urine Not Detected (Not Detect)
[2021-07-24 13:42] LABS: Opiate Screen Urine Not Detected (Not Detect)
--- NOTE | 2021-07-24 14:06 | MHC.RECOVRN ---
Pts updated labs and notes sent to N. Awaiting call back.
[2021-07-24 15:58] VITALS: BP 166/87; PULSE 120; RESP 20; TEMP 36.9; O2SAT 998
--- NOTE | 2021-07-24 16:14 | MHC.RECOVRN ---
Pt transported via Ly to On license of [facility].
== END 2021-07-24 16:05 | disposition home or self-care (01) ==
PROVIDERS: Emergency Provider Emergency Medicine
DX: L25.8 Unspecified contact dermatitis due to other agents (principal); R21 Rash and other nonspecific skin eruption; M79.642 Pain in left hand; F10.20 Alcohol dependence, uncomplicated; Y90.6 Blood alcohol level of 120-199 mg/100 ml; E78.5 Hyperlipidemia, unspecified; F41.9 Anxiety disorder, unspecified; J45.909 Unspecified asthma, uncomplicated; F17.200 Nicotine dependence, unspecified, uncomplicated; Z79.02 Long term (current) use of antithrombotics/antiplatelets; Z79.899 Other long term (current) drug therapy; Z79.51 Long term (current) use of inhaled steroids
CPT/HCPCS: 36415; 73120; 80307; 82077; 99284; Q0163

== ENCOUNTER 2021-09-13 08:33 | Outpatient (REF) | payer OTHER, SELFPAY ==
[2021-09-13 08:48] LABS: MANUAL DIFF FLAG NO
[2021-09-13 09:12] LABS: Basophils Percent Auto 0.9 % (0-2); Eosinophils Absolute Auto 0.3 X10*3/uL (0.0-0.4); Eosinophils Percent Auto 6.7 % (0-4); Hematocrit 44.5 % (42.0-52.0); Hemoglobin 15.3 g/dl (14.0-18.0); Imm Gran Abs Auto 0.01 X10*3/uL (0.00-0.03); Imm Gran Pct Auto 0.2 % (0.0-0.4); Lymphocytes Absolute Auto 2.4 X10*3/uL (1.2-4.9); Lymphocytes Percent Auto 52.9 % (20-40); Mean Corpuscular HGB Conc 34.4 g/dl (31.0-36.0); Mean Corpuscular Hemoglobin 30.4 pg (27.0-33.0); Mean Corpuscular Volume 88.3 fL (80.0-98.0); Mean Platelet Volume 9.4 fL (9.4-12.4); Monocytes Absolute Auto 0.4 X10*3/uL (0.1-1.2); Monocytes Percent Auto 8.3 % (2-11); Neutrophils Absolute Auto 1.4 x10*3/uL (2.0-8.3); Platelet Count 138 X10*3/uL (160-400); Red Blood Count 5.04 X10*6/uL (4.60-5.80); Red Cell Distribution Width 13.4 % (11.0-16.0); White Blood Count 4.5 X10*3/uL (4.8-10.8)
[2021-09-13 09:44] LABS: Alanine Aminotransferase 40 U/L (0-40); Albumin Level 4.1 g/dL (3.5-5.0); Alkaline Phosphatase 157 U/L (39-117); Anion Gap 12 (12-20); Aspartate Amino Transferase 70 U/L (5-37); Bilirubin Total 0.6 mg/dL (0.0-1.0); Blood Urea Nitrogen 15 mg/dL (9-16); Carbon Dioxide 26 mmol/L (22-29); Chloride 106 mmol/L (96-108); Cholesterol 240 mg/dL; Estimated Glomerular Filt Rate > 60; Glucose Fasting 122 mg/dL (60-99); HDL Cholesterol 30 mg/dL; Potassium 4.1 mmol/L (3.3-5.1); Sodium 140 mmol/L (135-145); Total Protein 7.3 g/dL (6.5-8.0); Triglycerides 842 mg/dL
[2021-09-13 09:46] LABS: Appearance Urine CLEAR; Color Urine YELLOW; Glucose Urine UA NEG (NEG); Leukocyte Esterase Urine NEG (NEG); Nitrite Urine NEG (NEG); Specific Gravity - Urine 1.025 (1.005-1.025); Urine Blood NEG (NEG); Urine Ketones NEG (NEG); Urine Protein NEG (NEG-TRACE)
[2021-09-13 09:51] LABS: Vitamin D 25-OH Total 14.1 ng/mL (>30)
== END 2021-09-13 08:34 | disposition home or self-care (01) ==
LOC: HO.LAB 08:33
PROVIDERS: PCP Internal Medicine; Visit Provider Internal Medicine
DX: E78.00 Pure hypercholesterolemia, unspecified (principal); I10 Essential (primary) hypertension; E55.9 Vitamin D deficiency, unspecified; M10.9 Gout, unspecified
CPT/HCPCS: 36415; 80053; 80061; 81003; 82306; 84443; 84550; 85025

== ENCOUNTER 2021-12-09 02:57 | Emergency (ER) | payer OTHER, SELFPAY ==
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
[2021-12-09 03:15] VITALS: BP 125/96; PULSE 91; RESP 18; TEMP 36.6; O2SAT 99; BMI 30.1
[2021-12-09 03:30] LABS: COVID-19 Test Negative (Negative)
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
--- NOTE | 2021-12-09 06:29 | PC.NURSE ---
pt a&o, no sob or distress. reviewed discharge instructions. pt verbalized understanding.
== END 2021-12-09 06:30 | disposition home or self-care (01) ==
PROVIDERS: Emergency Provider Emergency Medicine; PCP Internal Medicine
DX: M94.0 Chondrocostal junction syndrome [Tietze] (principal); Z20.822 Contact with and (suspected) exposure to COVID-19; E78.00 Pure hypercholesterolemia, unspecified; F10.20 Alcohol dependence, uncomplicated; Z79.02 Long term (current) use of antithrombotics/antiplatelets; Z79.899 Other long term (current) drug therapy
CPT/HCPCS: 71046; 87635; 99283

== ENCOUNTER 2022-01-08 07:04 | Outpatient (REF) | payer OTHER, SELFPAY ==
[2022-01-08 07:19] LABS: MANUAL DIFF FLAG NO
[2022-01-08 07:44] LABS: Basophils Percent Auto 0.7 % (0-2); Eosinophils Absolute Auto 0.5 X10*3/uL (0.0-0.4); Eosinophils Percent Auto 7.4 % (0-4); Hematocrit 45.1 % (42.0-52.0); Hemoglobin 15.1 g/dl (14.0-18.0); Imm Gran Abs Auto 0.02 X10*3/uL (0.00-0.03); Imm Gran Pct Auto 0.3 % (0.0-0.4); Lymphocytes Absolute Auto 1.8 X10*3/uL (1.2-4.9); Lymphocytes Percent Auto 29.3 % (20-40); Mean Corpuscular HGB Conc 33.5 g/dl (31.0-36.0); Mean Corpuscular Hemoglobin 30.1 pg (27.0-33.0); Mean Platelet Volume 10.4 fL (9.4-12.4); Monocytes Absolute Auto 0.5 X10*3/uL (0.1-1.2); Monocytes Percent Auto 8.1 % (2-11); Neutrophils Absolute Auto 3.3 x10*3/uL (2.0-8.3); Neutrophils Percent Auto 54.2 % (45-73); Platelet Count 118 X10*3/uL (160-400); Red Blood Count 5.01 X10*6/uL (4.60-5.80); Red Cell Distribution Width 12.7 % (11.0-16.0); White Blood Count 6.1 X10*3/uL (4.8-10.8)
[2022-01-08 07:57] LABS: Alanine Aminotransferase 32 U/L (0-40); Albumin Level 4.4 g/dL (3.5-5.0); Alkaline Phosphatase 142 U/L (39-117); Anion Gap 15 (12-20); Aspartate Amino Transferase 62 U/L (5-37); Bilirubin Total 1.2 mg/dL (0.0-1.0); Blood Urea Nitrogen 13 mg/dL (9-16); Calcium 9.6 mg/dL (8.4-10.2); Carbon Dioxide 28 mmol/L (22-29); Chloride 103 mmol/L (96-108); Cholesterol 201 mg/dL; Estimated Glomerular Filt Rate > 60; Glucose Fasting 107 mg/dL (60-99); HDL Cholesterol 41 mg/dL; LDL Cholesterol Calculated 125 mg/dl; Potassium 4.2 mmol/L (3.3-5.1); Sodium 142 mmol/L (135-145); Total Protein 7.7 g/dL (6.5-8.0); Triglycerides 177 mg/dL; Uric Acid 5.9 mg/dL (3.4-7.0)
[2022-01-08 08:19] LABS: TSH reflex Free T4 2.24 uIU/mL (0.32-4.0); Vitamin D 25-OH Total 19.3 ng/mL (>30)
[2022-01-08 08:56] LABS: Appearance Urine Clear; Color Urine Dark Yellow; Glucose Urine UA Negative (Negative); Leukocyte Esterase Urine Negative (Negative); Nitrite Urine Negative (Negative); PH 5.5 (5.0-9.0); Specific Gravity - Urine 1.025 (1.005-1.025); Urine Blood Negative (Negative); Urine Ketones Trace mg/dL (Negative); Urine Protein Trace mg/dL (Neg-Trace)
== END 2022-01-08 07:05 | disposition home or self-care (01) ==
LOC: HO.LAB 07:04
PROVIDERS: PCP Internal Medicine; Visit Provider Internal Medicine
DX: E55.9 Vitamin D deficiency, unspecified (principal); M10.9 Gout, unspecified; I10 Essential (primary) hypertension; E78.00 Pure hypercholesterolemia, unspecified
CPT/HCPCS: 36415; 80053; 80061; 81003; 82306; 84443; 84550; 85025

== ENCOUNTER 2022-04-03 08:22 | Outpatient (REF) | payer OTHER, SELFPAY ==
[2022-04-03 08:37] LABS: MANUAL DIFF FLAG NO
[2022-04-03 09:22] LABS: Basophils Absolute Auto 0.1 X10*3/uL (0.0-0.2); Eosinophils Absolute Auto 0.3 X10*3/uL (0.0-0.4); Eosinophils Percent Auto 6.1 % (0-4); Hematocrit 44.9 % (42.0-52.0); Hemoglobin 15.2 g/dl (14.0-18.0); Imm Gran Abs Auto 0.01 X10*3/uL (0.00-0.03); Imm Gran Pct Auto 0.2 % (0.0-0.4); Lymphocytes Absolute Auto 2.3 X10*3/uL (1.2-4.9); Lymphocytes Percent Auto 43.5 % (20-40); Mean Corpuscular HGB Conc 33.9 g/dl (31.0-36.0); Mean Corpuscular Hemoglobin 30.2 pg (27.0-33.0); Mean Corpuscular Volume 89.3 fL (80.0-98.0); Mean Platelet Volume 10.6 fL (9.4-12.4); Monocytes Absolute Auto 0.5 X10*3/uL (0.1-1.2); Neutrophils Absolute Auto 2.1 x10*3/uL (2.0-8.3); Neutrophils Percent Auto 40.2 % (45-73); Platelet Count 156 X10*3/uL (160-400); Red Blood Count 5.03 X10*6/uL (4.60-5.80); Red Cell Distribution Width 12.5 % (11.0-16.0); White Blood Count 5.2 X10*3/uL (4.8-10.8)
[2022-04-03 09:55] LABS: Alanine Aminotransferase 31 U/L (0-40); Albumin Level 4.4 g/dL (3.5-5.0); Alkaline Phosphatase 126 U/L (39-117); Anion Gap 12 (12-20); Aspartate Amino Transferase 41 U/L (5-37); Bilirubin Total 0.8 mg/dL (0.0-1.0); Blood Urea Nitrogen 13 mg/dL (9-16); Calcium 9.2 mg/dL (8.4-10.2); Carbon Dioxide 26 mmol/L (22-29); Chloride 105 mmol/L (96-108); Cholesterol 181 mg/dL; Estimated Glomerular Filt Rate > 60; Glucose Fasting 92 mg/dL (60-99); HDL Cholesterol 36 mg/dL; LDL Cholesterol Calculated 106 mg/dl; Potassium 4.2 mmol/L (3.3-5.1); Sodium 139 mmol/L (135-145); Total Protein 7.2 g/dL (6.5-8.0); Triglycerides 199 mg/dL
== END 2022-04-03 08:23 | disposition home or self-care (01) ==
LOC: HO.LAB 08:22
PROVIDERS: PCP Internal Medicine; Visit Provider Internal Medicine
DX: I10 Essential (primary) hypertension (principal); E78.00 Pure hypercholesterolemia, unspecified
CPT/HCPCS: 36415; 80053; 80061; 85025

== ENCOUNTER 2022-06-27 13:24 | Outpatient (REF) | payer OTHER, SELFPAY ==
[2022-06-27 14:19] LABS: MANUAL DIFF FLAG NO
[2022-06-27 15:50] LABS: Basophils Percent Auto 0.4 % (0-2); Eosinophils Absolute Auto 0.4 X10*3/uL (0.0-0.4); Eosinophils Percent Auto 7.3 % (0-4); Hematocrit 46.5 % (42.0-52.0); Hemoglobin 15.7 g/dl (14.0-18.0); Imm Gran Abs Auto 0.02 X10*3/uL (0.00-0.03); Imm Gran Pct Auto 0.4 % (0.0-0.4); Lymphocytes Absolute Auto 1.6 X10*3/uL (1.2-4.9); Lymphocytes Percent Auto 31.9 % (20-40); Mean Corpuscular HGB Conc 33.8 g/dl (31.0-36.0); Mean Corpuscular Volume 85.8 fL (80.0-98.0); Mean Platelet Volume 10.3 fL (9.4-12.4); Monocytes Absolute Auto 0.5 X10*3/uL (0.1-1.2); Monocytes Percent Auto 9.1 % (2-11); Neutrophils Absolute Auto 2.5 x10*3/uL (2.0-8.3); Neutrophils Percent Auto 50.9 % (45-73); Platelet Count 127 X10*3/uL (160-400); Red Blood Count 5.42 X10*6/uL (4.60-5.80); Red Cell Distribution Width 13.1 % (11.0-16.0)
[2022-06-27 16:10] LABS: Sodium 140 mmol/L (135-145)
[2022-06-27 16:11] LABS: Anion Gap 14 (12-20); Blood Urea Nitrogen 17 mg/dL (9-16); Calcium 9.3 mg/dL (8.4-10.2); Carbon Dioxide 25 mmol/L (22-29); Chloride 105 mmol/L (96-108); Estimated Glomerular Filt Rate > 60; Glucose Random 90 mg/dL (60-115)
[2022-06-27 16:22] LABS: Erythrocyte Sedimentation Rate 2 MM/HR (0-15)
[2022-06-30 12:33] LABS: Anti Nuclear Antibody Screen NEGATIVE (NEGATIVE)
[2022-07-01 13:48] LABS: IgA 281 mg/dL (47-310); IgG 1106 mg/dL (600-1640); IgM 163 mg/dL (50-300)
[2022-07-03 14:13] LABS: Angiotensin Converting Enzyme 39 U/L (9-67)
== END 2022-06-27 13:25 | disposition home or self-care (01) ==
LOC: HO.LAB 13:24
PROVIDERS: PCP Internal Medicine; Visit Provider Hospitalist
DX: R59.1 Generalized enlarged lymph nodes (principal); J45.40 Moderate persistent asthma, uncomplicated; J44.9 Chronic obstructive pulmonary disease, unspecified; D86.9 Sarcoidosis, unspecified
CPT/HCPCS: 36415; 80048; 82164; 82784; 82785; 85025; 85652; 86003; 86038; 86039; 99202

== ENCOUNTER 2022-07-21 09:45 | Outpatient (REF) | payer OTHER, SELFPAY ==
--- NOTE | ~2022-07-21 | CT_ITS ---
EXAMINATION: CT CHEST WITH CONTRAST CLINICAL INFORMATION: Generalized lymphadenopathy previous exams indicate history of sarcoidosis. COMPARISON: Previous chest CT January 2014, chest x-ray November 2021 TECHNIQUE: Multidetector volumetric CT imaging of the chest was obtained after the administration of 50 mL of Omnipaque 350 intravenous contrast without immediate adverse reactions. Axial MIP volume rendering provided. Sagittal and coronal reformatted images were obtained. This CT examination was performed using dose optimization techniques as appropriate, variously including the following: *Automated exposure control *Adjustment of mA and/or kV according to patient size (this includes techniques or standardized protocols for targeted exams where dose is matched to indication/reason for exam; i.e. extremities or head) *Use of iterative reconstruction technique DLP: 125 mGy-cm FINDINGS: LUNGS: There are small bilateral pulmonary nodules. The majority are stable from January 2014. There is question of a new 2 mm left lower lobe pulmonary nodule axial image 105 series 7. Previously identified heterogeneous or semisolid 7 mm left lower lobe nodule axial image 343 series 01/28/2014 exam no longer seen. The remainder of the small pulmonary nodules or micronodules are stable. Question mild central bronchovascular changes in both upper lobes for example left upper lobe axial image 83, right upper lobe axial image 59 and in the right middle lobe axial image 80 series 7. MEDIASTINUM: There are enlarged bilateral hilar and mediastinal lymph nodes. Some lymph nodes are partially calcified. Largest lymph node is a right precarinal lymph node measuring 1.6 cm in short axis. Mediastinal and bilateral hilar lymphadenopathy is similar to January 2014. Normal heart size. Mild coronary artery calcification. No pericardial effusion. PLEURA: There is no pleural effusion. No pleural mass or thickening. AXILLA: Shotty bilateral axillary lymphadenopathy. UPPER ABDOMEN: The liver is low in attenuation and may be slightly enlarged. There is question of mild cirrhotic changes of the liver. Prominent spleen measuring 13 cm. Prominent upper abdominal lymph nodes. OSSEOUS STRUCTURES: Old right anterior rib fractures. CT/CT chest w IV con IMPRESSION: Bilateral hilar and mediastinal lymphadenopathy similar to January [address] Multiple small pulmonary nodules the majority of which are stable. There is question of a new 2 mm peripheral left lower lobe nodule. Previously identified semisolid left lower lobe nodule which was the largest nodule January 2014 no longer seen. Question mild central bronchovascular changes in both upper and right middle lobes. Infectious, inflammatory and neoplastic processes should be considered. Previous exams indicate history of sarcoidosis. Fleischner guidelines were followed.
[2022-07-21] MEDS: iohexoL 350 MG/ML 100 ML INFUS..BTL 65 ML IV (10:03)
== END 2022-07-21 09:46 | disposition home or self-care (01) ==
LOC: HO.CT 09:45
PROVIDERS: Visit Provider Hospitalist
DX: R59.1 Generalized enlarged lymph nodes (principal)
CPT/HCPCS: 71260; Q9967

== ENCOUNTER 2022-07-31 12:49 | Outpatient (REF) | payer OTHER, SELFPAY ==
--- NOTE | 2022-07-31 17:19 | PFT_ITS ---
FLOWS: 1. FEV1 of 79% of predicted at 2.46 L. 2. FVC 75% of predicted at 3.03 L. 3. FEV1 to FVC ratio of 0.81. 4. No bronchodilator response except in small to medium airways. LUNG VOLUMES: 1. Total lung capacity 72% of predicted at 4.17 L. 2. Residual volume 72% of predicted at 1.26 L. 3. Slow vital capacity 72% of predicted at 2.91 L. 4. Expiratory reserve volume 62% of predicted at 0.69 L. 5. Diffusion capacity is normal. IMPRESSION: Moderate restrictive ventilatory defect with no bronchodilator response. MD CHAO Zarate/MODL / [id number]
== END 2022-07-31 12:50 | disposition home or self-care (01) ==
LOC: HO.RESP 12:49
PROVIDERS: PCP Internal Medicine; Visit Provider Hospitalist
DX: R59.1 Generalized enlarged lymph nodes (principal)
CPT/HCPCS: 94060; 94727; 94729

== ENCOUNTER 2023-01-30 12:55 | Outpatient (AMB) | payer OTHER, SELFPAY ==
--- NOTE | 2023-01-30 13:00 | MHC.OFFVIS ---
Intake Vital Signs 01/30/23 13:01 Height 5 ft 2 in Weight 170 lb BMI 31.1 Pulse 87 Pulse Source Pulse Oximeter Pulse Oximetry (%) 97 Oxygen Delivery Method Room Air Intake Visit Reasons: Sarcoidosis Enrollment Advisor Required: No Allergies ENVIRONMENTAL Allergy (Unknown, Uncoded 01/30/23 13:03) ITCHY THROAT HPI HPI Comments History of Present Illness Details The patient is a 52-year-old gentleman with a known history of mediastinal hilar adenopathy in addition to rash the suspicion of sarcoidosis. Apparently the patient she which she cough shortness of breath for the last few months. Feels like the symptoms are getting worse. He require prednisone. We did review his CT scan of the chest from 2013 which demonstrated a significant lymphadenopathy in the mediastinum largest paratracheal lymph node measuring 2.5 cm in size. The patient has never had any diagnostic interventions for the lymphadenopathy that he is aware of. He does have a rash that appears to be papular in his lower extremity on the left side. He is scheduled to see Dermatology. He denies having a biopsy in the past. Although very suspicious for sarcoidosis. The patient has been using a rescue inhaler with partial improvement of the symptoms. Will go ahead and start him on a combination inhaler and also request a repeat CT scan to assess the lymphadenopathy and assess for further possibilities are progression of sarcoidosis. Indeed the patient may have endobronchial sarcoid in a bronchoscopy may be warranted to further address that issue. The patient is also having significant allergies. His eosinophils are elevated. Is not clear if this is all 1 process or if he has concomitant eosinophilic asthma. 01/30/2023 the patient is here for a pulmonary follow-up visit. Overall the patient has been complaining of worsening cough and shortness of breath. He has a hard time with a cough because it affects his work. He has been more congested lately. He has been off some phlegm. We did review his last CT scan of the chest that he had back in 2022 which is reassuring did have some lymphadenopathy but no significant pneumonitis or significant pulmonary nodules to be concerned about. He has been on maintenance inhalers for the asthma but subsequently stopped using it. Again we talked about the possibility of endobronchial sarcoid which can mimic asthma. At this point the treatment will be the same. Patient does have a rash which is consistent with sarcoid. He had a steroid cream that he was putting on the rash. Will go ahead and start the patient on antibiotic and also maintenance inhaler. If the patient is no better he can start Medrol Gerhard. Will follow-up in 6 months. [facility] Medical History Alcoholism Anxiety Asthma Asthma Elevated LFTs GERD without esophagitis Gout Insomnia Lymphadenopathy Mixed hyperlipidemia Obesity (BMI 30-39.9) Pure hypercholesterolemia Sarcoidosis Surgical History No pertinent past surgical history Family History Father No problems noted. Mother Diabetes Social History Housing: House Alcohol intake: current Alcohol intake frequency: a few times a week Alcohol type: beer Patient Tobacco Use Status: Current everyday Tobacco user Cigarettes Per Day: 2 e-Cigarette/Vaping Use: Never Used Second Hand Smoke Exposure: Yes service: No Current occupational status: disabled Cognitive needs: No Hearing needs: No Vision needs: Yes Review of Systems Const Denies chills, Reports fatigue, Denies fever(s) and Denies headache(s) ENT Denies dysphagia, Denies dizziness, Denies otalgia, Denies headache(s), Denies sinus pain and Denies sore throat Card Denies chest pain, Denies palpitations and Reports dyspnea on exertion Resp Reports chest congestion (chest feels tight often lately), Reports cough (on and off, non-productive), Reports dyspnea on exertion and Reports wheezing (recurrent) GI Denies abdominal pain, Denies constipation, Denies dysphagia, Denies heartburn, Denies diarrhea, Denies nausea and Denies vomiting Denies dysuria and Denies nocturia Musc Denies arthralgias Skin/Breast Details: (+) dark raised skin lesions on the left leg - increasing in number lately Neuro Denies dizziness and Denies headache(s) Endo Reports fatigue and Denies palpitations Aller/Immun Reports wheezing (recurrent) Physical Exam Vital Signs: Last Vital Signs Pulse 87 01/30/23 13:01 Pulse Ox 97 01/30/23 13:01 Oxygen Delivery Method Room Air 01/30/23 13:01 BMI result Body Mass Index 31.1 Const General: cooperative and healthy appearing Nutritional Appearance: well nourished Orientation/consciousness: patient oriented x3 Limitations: no limitations HEENT Head: Yes normal to inspection Eyes General: appearance normal, both eyes and all related structures Neck Neck: Yes normal visual inspection Chest Chest palpation & inspection: normal palpation of entire chest wall Resp Effort & Inspection: normal respiratory effort Auscultation: diminished lung sounds Cardio Heart sounds: S1 normal heart sound present and S2 normal heart sound present GI Palpation (GI): Soft to palpation Skin General skin exam: no rashes or lesions noted Neuro General: patient oriented x3 Assessment & Plan Assessment & Plan (1) Bronchitis: Code(s): J40 - Bronchitis, not specified as acute or chronic (2) Lymphadenopathy: Code(s): R59.1 - Generalized enlarged lymph nodes (3) Asthma: Code(s): J45.909 - Unspecified asthma, uncomplicated Qualifiers: Asthma complication type: with acute exacerbation Asthma persistence: persistent Asthma severity: moderate Qualified Code(s): J45.41 - Moderate persistent asthma with (acute) exacerbation (4) Sarcoidosis of skin: Code(s): D86.3 - Sarcoidosis of skin Plan Stop Incruse Start Trelegy HOLLI as needed Zpack Medrol pack F/U 4-6 months Medications: New fluticasone furoate-vilanterol 200-25 mcg/dose (Breo Ellipta) 1 inh inhalation DAILY 30 days 60 ea 11RF J45.909 - Unspecified asthma, uncomplicated azithromycin 500 mg PO DAILY 5 days 5 tabs 0RF methylprednisolone (Medrol (Gerhard)) 4 mg PO DAILY 6 days 6 ea 0RF benzonatate 200 mg PO BID 30 days PRN 60 caps 3RF cough Refilled albuterol sulfate 90 mcg/actuation 2 puffs PO Q6-8H 30 days PRN 8.5 grams 12RF shortness of breath or wheezing J45.41 - Moderate persistent asthma with (acute) exacerbation Coding Level of Care Code Est Pt Level 4 (39414) Diagnoses Bronchitis J40 Lymphadenopathy R59.1 Moderate persistent asthma with acute exacerbation J45.41 Asthma complication type: with acute exacerbation Asthma persistence: persistent Asthma severity: moderate Sarcoidosis of skin D86.3 Time Spent (min) 17
[2023-01-30 13:01] VITALS: PULSE 87; O2SAT 97; BMI 31.1
== END 2023-01-30 13:20 | disposition home or self-care (01) ==
PROVIDERS: PCP Internal Medicine; Visit Provider Hospitalist
DX: J40 Bronchitis, not specified as acute or chronic (principal); R59.1 Generalized enlarged lymph nodes; J45.41 Moderate persistent asthma with (acute) exacerbation; D86.3 Sarcoidosis of skin
CPT/HCPCS: 99214

== ENCOUNTER → 2023-01-30 12:55 | Outpatient (BNVA) | payer OTHER, SELFPAY | PROVIDERS: PCP Internal Medicine; Visit Provider Hospitalist | DX: D86.3 Sarcoidosis of skin (principal); J45.41 Moderate persistent asthma with (acute) exacerbation; J40 Bronchitis, not specified as acute or chronic; R29.1 Meningismus | CPT/HCPCS: 99212 ==

== ENCOUNTER 2023-02-26 14:01 | Outpatient (AMB) | payer OTHER, SELFPAY ==
[2023-02-26 14:08] VITALS: BP 122/70; PULSE 97; TEMP 38.3; O2SAT 97; BMI 30.1
--- NOTE | 2023-02-26 14:08 | MHC.OFFWIV ---
Intake Vital Signs 02/26/23 14:08 Height 5 ft 3 in Weight 77.111 kg BMI 30.1 BP 122/70 Blood Pressure Location Lt brachial Position Sitting Pulse 97 Pulse Source Pulse Oximeter Temp 100.9 F H Temp Source Temporal Artery Scan Pulse Oximetry (%) 97 Oxygen Delivery Method Room Air Intake Visit Reasons: Est,nausea, threw up blood(lobby masked) Intake Note: Pt is here c/o bad cough for over a week. Pt states he has also had a fever that only goes down with otc medications and comes right back. Pt states when he smokes a ciggarette and coughs, blood sometimes comes up. Patient Tobacco Use Status: Current everyday Tobacco user Allergies ENVIRONMENTAL Allergy (Unknown, Uncoded 02/26/23 14:09) ITCHY THROAT Do you need a note to return to daycare/school/sports/work: No HPI HPI Comments History of Present Illness Details [id number] 52-year-old male presents for evaluation of dark urine, fatigue, malise, myalgias for over week. Patient reports that he has also had fevers at home that responded well to OTC meds . Patient reports he coughed up blood tinged sputum this am he is a smoker and when he smokes he notes that there is more blood in his sputum. Denies nausea, vomiting, hematemesis, in dizziness, headache, vision changes, chest pain, shortness of breath, abdominal pain Physical exam benign however patient noted to be febrile 100.9 Likely viral illness versus bronchitis vs uti vs rhabdo vs cayla vs electrolyte abnormalities. Unlikely pulmonary embolism, pneumonia, tuberculosis, acute respiratory distress. Plan is UA covid Patient's UA with ketones, leukocyte esterases, dark brown in color, positive bilirubin, concerns for possible UTI with fever, I feel like patient would benefit from laboratory studies, possibly CPK in further evaluation patient go to the emergency department for further evaluation [facility] Medical History Asthma Lymphadenopathy Mixed hyperlipidemia Elevated LFTs Alcoholism GERD without esophagitis Obesity (BMI 30-39.9) Anxiety Insomnia Gout Sarcoidosis Pure hypercholesterolemia Asthma Surgical History No pertinent past surgical history Family History Father No problems noted. Mother Diabetes Social History Housing: House Alcohol intake: current Alcohol intake frequency: a few times a week Alcohol type: beer Patient Tobacco Use Status: Current everyday Tobacco user Cigarettes Per Day: 2 e-Cigarette/Vaping Use: Never Used Second Hand Smoke Exposure: Yes service: No Current occupational status: disabled Cognitive needs: No Hearing needs: No Vision needs: Yes Review of Systems Const Details: Constitutional : No Weight loss, No Fever, No Chills, No Fatigue, No Malaise ENT/Mouth : No sore throat, No Rhinorrhea Eyes: No Eye Pain, No Swelling, No Redness Cardiovascular : No Chest Pain, No SOB, No Dyspnea on Exertion, No Orthopnea, No Edema, No Palpitations Respiratory : + Cough, + Sputum, No Wheezing Gastrointestinal : No Nausea, No Vomiting, No Diarrhea, No Constipation, No abdominal Pain, No Hematochezia, No Melena Genitourinary : No Dysuria, No Urinary Frequency, No Hematuria, Musculoskeletal : No joint pain, No Myalgias, No Joint Swelling Skin : No Skin Lesions, No rash Neuro : No Weakness, No Numbness, No Dizziness, No Headache Psych : No Anxiety/Panic, No Depression All other systems reviewed and are negative All systems reviewed & are unremarkable except as noted in HPI and below Physical Exam Vital Signs: Last Vital Signs Temp 100.9 F H 02/26/23 14:08 Pulse 97 02/26/23 14:08 BP 122/70 02/26/23 14:08 Pulse Ox 97 02/26/23 14:08 Oxygen Delivery Method Room Air 02/26/23 14:08 BMI result Body Mass Index 30.1 vss Appearance: Alert.? Oriented X3.? No acute distress.? Head: Normocephalic, atraumatic, no step-offs or deformities Eyes: Pupils equal, round and reactive to light.? Neck: Normal inspection.? Neck supple.? CVS: Normal heart rate and rhythm.? Pulses normal.? Respiratory: No respiratory distress.? Breath sounds normal.? Abdomen: Soft and nontender.? Skin: Skin warm and dry.? Normal skin color.? Normal skin turgor.? Extremities: No lower extremity edema.? No calf ttp. 5/5 strength to bilateral upper and lower extremities Neuro: Oriented X 3.? No motor deficit.? No sensory deficit. CN 2-12 intact Results AMB Urinalysis, Automated UA Leukoctes 15 Kai/uL Last Edit by Yoselyn Melton, STEPAN on 02/26/23 14:43 UA Nitrite Negative Last Edit by Yoselyn Melton, [employer]ING [employer]PERATOR on 02/26/23 14:43 UA Urobilinogen 1 mg/dL Last Edit by Yoselyn Melton, MOL[employer]ING OPERATOR on 02/26/23 14:43 UA Protein 15 mg/dL Last Edit by Yoselyn Melton, MOLASS[employer]ORING OPERATOR on 02/26/23 14:43 UA pH 6.0 Last Edit by Yoselyn Melton, MOLASS[employer]ORING OPERATOR on 02/26/23 14:43 UA Blood 0 Terence/uL Last Edit by Yoselyn Melton, MOLASS[employer]ING OPERATOR on 02/26/23 14:43 UA Specific [place] 1.030 Last Edit by Yoselyn Melton, STEPAN on 02/26/23 14:43 UA Ketone Positive Last Edit by Yoselyn Melton, STEPAN on 02/26/23 14:43 UA Bilirubin 1 mg/dL Last Edit by Yoselyn Melton, MOLASS[employer]ORING OPERATOR on 02/26/23 14:43 UA Glucose 0 mg/dL Last Edit by Yoselyn Melton, MOLASS[employer]ORING OPERATOR on 02/26/23 14:43 Assessment & Plan Assessment & Plan (1) Fever: Code(s): R50.9 - Fever, unspecified (2) UTI symptoms: Code(s): R39.9 - Unspecified symptoms and signs involving the genitourinary system Plan Take your medications as prescribed. If you were prescribed antibiotics today, it is important that you take your medication to their entirety, do not skip any doses, do not finish them early. Follow-up with your primary care provider this week. Return to the emergency department with new or worsening symptoms. Such as fevers, chills, chest pain, shortness of breath, nausea, vomiting, dizziness, headache, vision changes, lethargy In case of emergency call 911 Orders: Orders BinaxNOW Covid-19 Ag Today J40 - Bronchitis, not specified as acute or chronic Medications: New acetaminophen 650 mg (2 x 325 mg) PO Q4H PRN 20 caps 0RF fever or pain Coding Level of Care Code Est Pt Level 3 (72094) Diagnoses Fever R50.9 UTI symptoms R39.9
== END 2023-02-26 15:38 | disposition home or self-care (01) ==
PROVIDERS: PCP Internal Medicine; Visit Provider Physician Assistant
DX: R50.9 Fever, unspecified (principal); R39.9 Unspecified symptoms and signs involving the genitourinary system
CPT/HCPCS: 81003; 99213

== ENCOUNTER 2023-02-26 15:18 | Emergency (ER) | payer OTHER, SELFPAY ==
[2023-02-26] VITALS (7 sets, daily range): BP systolic 105–130; BP diastolic 63–72; PULSE 75–109; RESP 16–18; TEMP 36.7–37.3; O2SAT 95–98; BMI 31.2
--- NOTE | ~2023-02-26 | CT_ITS ---
EXAMINATION: CT ABDOMEN AND PELVIS WITH CONTRAST CLINICAL INFORMATION: Painless jaundice COMPARISON: None available. TECHNIQUE: Multidetector volumetric images were obtained from the superior aspect of the liver through the pubic symphysis following administration 85 mL of Omnipaque 350 intravenous contrast. Sagittal and coronal reformatted images were obtained on the technologist's workstation. Oral contrast: No This CT examination was performed using dose optimization techniques as appropriate, variously including the following: *Automated exposure control *Adjustment of mA and/or kV according to patient size (this includes techniques or standardized protocols for targeted exams where dose is matched to indication/reason for exam; i.e. extremities or head) *Use of iterative reconstruction technique DLP: 540 mGy-cm. FINDINGS: LUNG BASES: The lung bases are clear. The heart size is normal. LIVER, GALLBLADDER, AND BILIARY TREE: The liver is normal in size, shape, and attenuation. No focal hepatic lesion or biliary ductal dilatation is present. The portal vein is patent. No perihepatic fluid collection seen. The gallbladder is distended. The CBD is normal caliber. PANCREAS: Unremarkable. SPLEEN: The spleen is enlarged measuring 16.3 cm in length. ADRENAL GLANDS: Unremarkable. KIDNEYS AND URETERS: The kidneys are normal in size, shape, and attenuation. No hydronephrosis, hydroureter, or calculi seen. No perinephric stranding. BLADDER: Unremarkable. GASTROINTESTINAL TRACT: The stomach is nondistended. The small bowel loops are normal caliber. There is scattered stool and diverticuli seen in the colon without distention. Appendix is normal caliber. ABDOMINAL WALL: No significant hernia is appreciated. LYMPH NODES: There is diffuse retroperitoneal adenopathy especially in the upper abdomen. Also visualized are numerous small mesenteric lymph nodes also are normal. The largest lymph node in between the pancreatic head and liver measures 2.8 x 2.4 cm VASCULAR: Unremarkable. PELVIC VISCERA: The prostate gland is normal size. Prominent reactive small lymph nodes are seen in the inguinal region OSSEOUS STRUCTURES: No aggressive lytic or sclerotic process seen. CT/CT abdomen pelvis w IV con IMPRESSION: Abnormal retroperitoneal lymph nodes especially upper abdomen. There are small abnormal reactive mesenteric lymph nodes as well.. These could be secondary to metastatic disease or lymphoma. Splenomegaly. Fleischner guidelines were followed.
--- NOTE | 2023-02-26 15:25 | ED_ITS ---
HPI - General Adult General Chief complaint: Urogenital-Male Stated complaint: fever,dark urine sent from urgent care Time Seen by Provider: 02/26/23 16:17 Source: patient, family and dog food dough mixer Mode of arrival: ambulatory History of Present Illness HPI narrative: 52-year-old male with history of alcoholism presents with persistent fever since Thursday but denies any abdominal pain, nausea, vomiting, diarrhea denies any urinary symptoms and denies any shortness of breath/chest pain/palpitations and denies any new cough or shortness of breath. Related Data Previous Rx's Medication Instructions Recorded thiamine HCl (vitamin B1) 100 mg 100 mg PO DAILY 30 days #30 tabs 05/16/20 tablet colchicine (gout) 0.6 mg tablet 0.6 mg PO DAILY 30 days #30 tabs 11/05/20 diphenhydramine HCl 25 mg tablet 25 mg PO TID PRN itching #14 tabs 07/24/21 (Benadryl Allergy) omeprazole 20 mg capsule,delayed 20 mg PO DAILY 30 days #30 caps 09/12/21 release fenofibrate 160 mg tablet 160 mg PO DAILY 90 days #90 tabs 09/20/21 ibuprofen 600 mg tablet 600 mg PO TID PRN pain #20 tabs 12/09/21 trazodone 50 mg tablet 50 mg PO BEDTIME PRN insomnia 30 01/31/22 days #30 tabs albuterol sulfate 2.5 mg/0.5 mL 2.5 mg (0.5 mL) continuous 05/16/22 solution for nebulization nebulization QID PRN shortness of breath or wheezing 30 days #120 ea atorvastatin 10 mg tablet 10 mg PO DAILY 90 days #90 tabs 05/16/22 fluticasone propionate 110 1 puff inhalation BID 30 days #12 05/16/22 mcg/actuation HFA aerosol inhaler grams (Flovent HFA) montelukast 10 mg tablet 10 mg PO DAILY 90 days #90 tabs 05/16/22 Symbicort 160 mcg-4.5 2 puff inhalation BID 30 days 06/27/22 mcg/actuation HFA aerosol inhaler #10.2 grams (budesonide-formoterol) cetirizine 10 mg tablet (Zyrtec) 10 mg PO DAILY PRN allergy 06/27/22 symptoms #30 tabs meclizine 25 mg tablet 25 mg PO TID PRN dizziness #30 tabs 07/07/22 fluticasone propionate 115 2 puff inhalation Q12H 30 days #12 07/09/22 mcg-salmeterol 21 mcg/actuation grams HFA inhaler (Advair HFA) albuterol sulfate 90 mcg/actuation 2 puff PO Q6-8H PRN shortness of 01/30/23 aerosol inhaler breath or wheezing 30 days #8.5 grams azithromycin 500 mg tablet 500 mg PO DAILY 5 days #5 tabs 01/30/23 benzonatate 200 mg capsule 200 mg PO BID PRN cough 30 days 01/30/23 #60 caps fluticasone furoate 200 1 inh inhalation DAILY 30 days #60 01/30/23 mcg-vilanterol 25 mcg/dose ea inhalation powder (Breo Ellipta) methylprednisolone 4 mg tablets in 4 mg PO DAILY 6 days #6 ea 01/30/23 a dose pack (Medrol (Gerhard)) acetaminophen 325 mg capsule 650 mg (2 x 325 mg) PO Q4H PRN 02/26/23 fever or pain #20 caps nitrofurantoin 100 mg PO Q12H 7 days #14 caps 02/26/23 monohydrate/macrocrystals 100 mg capsule (Macrobid) Allergies Allergy/AdvReac Type Severity Reaction Status Date / Time ENVIRONMENTAL Allergy Unknown ITCHY Uncoded 02/26/23 14:09 THROAT Review of Systems 2 Review of Systems: Pertinent positives and negatives as stated in HPI [facility] Past Medical History Source: nursing notes reviewed Medical History Asthma Lymphadenopathy Mixed hyperlipidemia Elevated LFTs Alcoholism GERD without esophagitis Obesity (BMI 30-39.9) Anxiety Insomnia Gout Sarcoidosis Pure hypercholesterolemia Asthma Surgical History No pertinent past surgical history Family History Family History Father No problems noted. Mother Diabetes Social History Social History Housing: House Alcohol intake: current Alcohol intake frequency: a few times a week Alcohol type: beer Patient Tobacco Use Status: Current everyday Tobacco user Cigarettes Per Day: 2 e-Cigarette/Vaping Use: Never Used Second Hand Smoke Exposure: Yes Advance Directives: No Advance Directives Information Provided: No service: No Current occupational status: disabled Cognitive needs: No Hearing needs: No Vision needs: Yes Physical Exam ED Vital Signs: Vital Signs - 24 hr 02/26/23 15:25 02/26/23 16:11 02/26/23 16:22 Temperature 99.2 F 98.4 F 99.2 F Pulse Rate 109 H 93 92 Respiratory Rate 18 18 16 Blood Pressure 130/72 113/64 125/65 Pulse Oximetry 95 96 97 Oxygen Delivery Method Room Air Room Air Room Air 02/26/23 17:43 02/26/23 18:24 02/26/23 18:45 Temperature 98.0 F 98.1 F 98.0 F Pulse Rate 84 87 80 Respiratory Rate 18 18 16 Blood Pressure 111/67 114/64 114/69 Pulse Oximetry 97 95 96 Oxygen Delivery Method Room Air Room Air Room Air 02/26/23 20:00 Temperature 98.4 F Pulse Rate 75 Respiratory Rate 16 Blood Pressure 105/63 Pulse Oximetry 98 Oxygen Delivery Method Room Air BMI result Body Mass Index 31.2 VITAL SIGNS: Reviewed. GENERAL: Well developed, well nourished, in no acute distress. HEAD: Normocephalic/atraumatic EYES: PERRLA, EOMI, scleral icterus EARS: Ext canals without abnormality, TMs non-bulging and non-erythematous NOSE: Nares patent bilateral OROPHARYNX: no oral lesions noted, posterior pharynx clear and non-erythematous without noted tonsillar enlargement/erythema/exudates NECK: Supple, no adenopathy LUNGS: Normal breath sounds. No adventitious sounds or accessory muscle use. SpO2<97> CARDIOVASCULAR: Regular rate and rhythm without noted murmurs, no JVD or lower extremity edema. ABDOMEN: Soft, non-tender, non-distended with bowel sounds. MUSCULOSKELETAL: No tenderness, deformities, or effusions noted on gross inspection. EXTREMITIES: No cyanosis, clubbing or edema. SKIN: Inspection of the skin reveals no rashes, NEUROLOGIC: Alert and oriented x 4. Strength and sensation to light touch were grossly intact x 4. Course Course Course Narrative: 1530 52-year-old male history of sarcoidosis, BPV, alcoholism, anxiety, presenting for evaluation dark urine, fevers chills, myalgias, fatigue and malaise for the past 3 days, patient was coming from urgent care where he was noted to have a temperature a 100.9 degrees F, prior to arrival to the ED he took Tylenol. Patient feels overall unwell. Physical exam patient tachycardic, also has a fever. At urgent care he did have a urine done which showed infection. This time infection suspected 30 cc/kilos bolus as well as antibiotics ordered for suspected UTI Spoke to charge to bring patient straight back Medications Administered Discontinued Medications Generic Name Dose Route Start Last Admin Trade Name Freq PRN Reason Stop Dose Admin Sodium Chloride 2,400 mls @ 2,400 mls/hr 02/26/23 15:29 02/26/23 18:00 Ns 30 ml/kg infuse over 1 hr (2400 ml) 02/26/23 16:28 Infused IV Infusion .Q1H STA Ceftriaxone Sodium 1 gm/ 50 mls @ 100 mls/hr 02/26/23 16:06 02/26/23 17:30 Sodium Chloride IV 02/26/23 16:35 Infused ONCE ONE Infusion Sodium Chloride 1,000 mls @ 999 mls/hr 02/26/23 16:45 02/26/23 18:28 Ns IV 02/26/23 17:45 Not Given .Q1H1M [facility] Medical Decision Making Medical Decision Making [facility] Narrative: 1618: 52-year-old male with history and clinical presentation suggestive of hepatitis, intravascular hemolysis, without intra-abdominal pain or associated symptoms very low clinical suspicion for cholecystitis/choledocholithiasis. Collateral information provided by family member is that patient had been noted to be jaundice approximately 2 weeks ago but it had cleared up . I reviewed all investigations and hematologic indices show a leukopenia with chronically stable thrombocytopenia and a new normocytic anemia without evidence of recent or current bleeding. Coagulation studies show a prolonged PT of 13.7 but otherwise INR and PTT are within normal limits. Chemistry indices do not demonstrate an ANTONIETTA, there is no electrolyte derangement, however elevated liver enzymes likely a combination of stress from urinary tract infection and inflammatory response associated with that in addition to continued alcohol consumption. Lipase is within normal limits. Urinalysis as mentioned above appears to be positive for nitrites. Viral testing is negative for COVID and strep. CT scan did not demonstrate any hepatobiliary/pancreatic mass but does identify abnormal retroperitoneal lymph nodes predominantly in the upper abdomen and what appears to be reactive mesenteric lymph nodes. These findings on the CT scan were discussed with the patient at bedside. He has received IV fluids and antibiotics, he is currently feeling much better. All results and findings discussed with the patient at bedside with study coordinator, he knows that he should complete the entire course of antibiotics, follow-up with his primary care doctor and I will provide a referral for further evaluation by hematology/oncology. Differential Diagnosis Differential Diagnoses: The differential diagnosis associated with the presentation includes Please see the discussion above Admission/Observation Consideration of admission/observation: Escalation of care including admission/observation considered Please see the discussion above Lab Data MDM Lab Attestation statement: I reviewed the patient's lab results. Please see the discussion above 02/26/23 16:54 02/26/23 16:54 Labs: Lab Results 02/26/23 02/26/23 02/26/23 Range/Units 16:54 17:03 17:54 WBC 2.6 L (4.8-10.8) X10*3/uL RBC 4.48 L (4.60-5.80) X10*6/uL Hgb 13.0 L (14.0-18.0) g/dl Hct 38.6 L (42.0-52.0) % MCV 86.2 (80.0-98.0) fL MCH 29.0 (27.0-33.0) pg MCHC 33.7 (31.0-36.0) g/dl RDW 13.9 (11.0-16.0) % Plt Count 107 L (160-400) X10*3/uL MPV 10.2 (9.4-12.4) fL Immature Gran % (Auto) 0.4 (0.0-0.4) % Neut % (Auto) 50.5 (45-73) % Lymph % (Auto) 36.1 (20-40) % [place] % (Auto) 10.6 (2-11) % Eos % (Auto) 1.6 (0-4) % Baso % (Auto) 0.8 (0-2) % Lymph # (Auto) 0.9 L (1.2-4.9) X10*3/uL [place] # (Auto) 0.3 (0.1-1.2) X10*3/uL Eos # (Auto) 0.0 (0.0-0.4) X10*3/uL Baso # (Auto) 0.0 (0.0-0.2) X10*3/uL Abs Immat Gran (auto) 0.01 (0.00-0.03) X10*3/uL Absolute Neuts (auto) 1.3 L (2.0-8.3) x10*3/uL Absolute Nucleated RBC 0.000 (0.0-0.012) X10*3/uL Nucleated RBC % (auto) 0.0 (0.0-0.2) /100WBC PT 13.7 H (11.1-13.3) SEC INR 1.1 (0.9-1.1) APTT 31.3 (26.0-36.4) SEC Sodium 136 (135-145) mmol/L Potassium 3.3 (3.3-5.1) mmol/L Chloride 109 H (96-108) mmol/L Carbon Dioxide 21 L (22-29) mmol/L Anion Gap 9 L (12-20) BUN 14 (9-16) mg/dL Creatinine 0.76 (0.5-1.4) mg/dL Estim Creat Clear Calc 106.3 Estimated GFR > 60 Random Glucose 126 H (60-115) mg/dL Lactic Acid 1.0 (0.5-2.0) mmol/L Calcium 8.1 L D (8.4-10.2) mg/dL Magnesium 1.9 (1.6-2.6) mg/dL Total Bilirubin 1.6 H (0.0-1.0) mg/dL AST 63 H (5-37) U/L ALT 33 (0-40) U/L Alkaline Phosphatase 178 H (39-117) U/L Total Creatine Kinase 39 (38-174) U/L Total Protein 6.1 L (6.5-8.0) g/dL Albumin 3.2 L (3.5-5.0) g/dL Lipase 27 (8-78) U/L Urine Color [place] A Urine Appearance Clear Urine pH 5.5 (5.0-9.0) Ur Specific [place] >= 1.030 H (1.005-1.025) Urine Protein 30 (1+) H (Neg-Trace) mg/dL Urine Glucose (UA) Negative (Negative) mg/dL Urine Ketones Trace (Negative) mg/dL Urine Blood Negative (Negative) Urine Nitrite Positive H (Negative) Ur Leukocyte Esterase Small (1+) H (Negative) Urine RBC 0-2 (0-2) /HPF Urine WBC 0-5 (0-5) /HPF Ur Squamous Epith Cells 3-5 (0-2) /HPF Urine Bacteria None Seen (None Seen) Hyaline Casts 0-2 (0-2) /LPF COVID-19 (MOLINA) Negative (Negative) COVID-19 Clin Com See Note S. pyogenes GrpA RAKESH Negative (Negative) Radiology Impression Discussion of test interpretation with radiology: I have reviewed the radiologist's reading. Radiologist Impression: Please see the discussion above External Record Review External record reviewed: Outpatient record, Prior outpatient labs and Prior outpatient radiology Social Determinants Patient?s care significantly limited by Social Determinants of Health including: Alcoholism and drug addiction in family Critical Care Time Critical Care Time Critical Care Time: Yes Total Critical Care Time: 45 Attestation: I personally attest to this time spent taking care of the patient. Discharge Plan Discharge Clinical Impression: Sepsis, Lymphadenopathy, Urinary tract infection, Alcohol use disorder, Elevated liver enzymes Patient Disposition: Home, Self-Care Instructions: Urinary Tract Infection in Men (ED), Lymphadenopathy (ED), Alcohol Use Disorder (ED) Additional Instructions: 1. Reanudar todos los medicamentos caseros seg?n lo recetado. 2. Complete todo el ciclo de antibi?ticos seg?n lo prescrito. 3. Le recomiendo encarecidamente que angie un seguimiento con bradshaw m?dico de atenci?n primaria llamando al consultorio el lunes por la ma?jose para programar honey teresa para honey nueva evaluaci?n del manejo ambulatorio. 4. Le he remitido para un seguimiento con hematolog?a/oncolog?a con respecto a los ganglios linf?ticos agrandados dentro de bradshaw abdomen que fueron identificados y discutidos con usted junto a bradshaw cama. 5. Lo m?s importante es que le recomiendo encarecidamente que deje de beber alcohol y, si necesita ayuda con esto, comun?quese con bradshaw m?dico de atenci?n primaria y hable sobre ello. Regrese a la otto de emergencias si los s?ntomas empeoran. 1. Resume all home medications as prescribed. 2. Complete the entire course of antibiotics as prescribed. 3. I highly recommend that you follow-up with your primary care doctor by calling the office on Thursday morning to set up an appointment for re-evaluation further outpatient management. 4. I have given you a referral to follow-up with hematology/oncology regarding the enlarged lymph nodes within your abdomen that were identified and discussed with you at bedside. 5. Most importantly, I highly recommend that you stop drinking alcohol and if you need assistance with this please contact your primary care doctor and discuss. Return to the ER for any worsening symptoms. Prescriptions: New nitrofurantoin monohyd/m-cryst [Macrobid] 100 mg capsule 100 mg PO Q12H 7 Days Qty: 14 0RF Rx Instructions: must administer with a meal/food No Action omeprazole 20 mg capsule,delayed release(DR/EC) 20 mg PO DAILY 30 Days Qty: 30 3RF budesonide-formoterol [Symbicort] 160-4.5 mcg/actuation HFA aerosol inhaler 2 puff inhalation BID 30 Days Qty: 10.2 11RF Advair HFA 115-21 mcg/actuation HFA aerosol inhaler 2 puff inhalation Q12H 30 Days Qty: 12 11RF diphenhydramine HCl [Benadryl Allergy] 25 mg tablet 25 mg PO TID PRN (Reason: itching) Qty: 14 0RF ibuprofen 600 mg tablet 600 mg PO TID PRN (Reason: pain) Qty: 20 0RF thiamine HCl (vitamin B1) 100 mg tablet 100 mg PO DAILY 30 Days Qty: 30 12RF colchicine (gout) 0.6 mg tablet 0.6 mg PO DAILY 30 Days Qty: 30 5RF trazodone 50 mg tablet 50 mg PO BEDTIME PRN (Reason: insomnia) 30 Days Qty: 30 3RF albuterol sulfate 2.5 mg/0.5 mL solution for nebulization 2.5 mg continuous nebulization QID PRN (Reason: shortness of breath or wheezing) 30 Days Qty: 120 3RF Rx Instructions: 4 times a day as needed Flovent HFA 110 mcg/actuation HFA aerosol inhaler 1 puff inhalation BID 30 Days Qty: 12 12RF montelukast 10 mg tablet 10 mg PO DAILY 90 Days Qty: 90 3RF atorvastatin 10 mg tablet 10 mg PO DAILY 90 Days Qty: 90 1RF meclizine 25 mg tablet 25 mg PO TID PRN (Reason: dizziness) Qty: 30 1RF fenofibrate 160 mg tablet 160 mg PO DAILY 90 Days Qty: 90 1RF acetaminophen 325 mg capsule 650 mg PO Q4H PRN (Reason: fever or pain) Qty: 20 0RF cetirizine [Zyrtec] 10 mg tablet 10 mg PO DAILY PRN (Reason: allergy symptoms) Qty: 30 8RF fluticasone furoate-vilanterol [Breo Ellipta] 200-25 mcg/dose blister with device 1 inh inhalation DAILY 30 Days Qty: 60 11RF azithromycin 500 mg tablet 500 mg PO DAILY 5 Days Qty: 5 0RF albuterol sulfate 90 mcg/actuation HFA aerosol inhaler 2 puff PO Q6-8H PRN (Reason: shortness of breath or wheezing) 30 Days Qty: 8.5 12RF methylprednisolone [Medrol (Gerhard)] 4 mg tablets,dose pack 4 mg PO DAILY 6 Days Qty: 6 0RF benzonatate 200 mg capsule 200 mg PO BID PRN (Reason: cough) 30 Days Qty: 60 3RF Referrals: Doc Marrero MD [Primary Care Provider] - Germania Varghese MD [Physician] - Print Language: Romanian
[2023-02-26 16:59] LABS: MANUAL DIFF FLAG NO
[2023-02-26] MEDS: cefTRIAXone sodium 1 GM in 0.9 % Sodium Chloride 50 ML IV (17:00)
[2023-02-26 17:14] LABS: IDNOW Serial# BCCEAD1C
[2023-02-26 17:15] LABS: Basophils Percent Auto 0.8 % (0-2); COVID-19 Test Negative (Negative); Eosinophils Percent Auto 1.6 % (0-4); Hematocrit 38.6 % (42.0-52.0); Imm Gran Abs Auto 0.01 X10*3/uL (0.00-0.03); Imm Gran Pct Auto 0.4 % (0.0-0.4); Lymphocytes Absolute Auto 0.9 X10*3/uL (1.2-4.9); Lymphocytes Percent Auto 36.1 % (20-40); Mean Corpuscular HGB Conc 33.7 g/dl (31.0-36.0); Mean Corpuscular Volume 86.2 fL (80.0-98.0); Mean Platelet Volume 10.2 fL (9.4-12.4); Monocytes Absolute Auto 0.3 X10*3/uL (0.1-1.2); Monocytes Percent Auto 10.6 % (2-11); Neutrophils Absolute Auto 1.3 x10*3/uL (2.0-8.3); Neutrophils Percent Auto 50.5 % (45-73); Platelet Count 107 X10*3/uL (160-400); Red Blood Count 4.48 X10*6/uL (4.60-5.80); Red Cell Distribution Width 13.9 % (11.0-16.0); White Blood Count 2.6 X10*3/uL (4.8-10.8)
[2023-02-26 17:16] LABS: Alanine Aminotransferase 33 U/L (0-40); Albumin Level 3.2 g/dL (3.5-5.0); Alkaline Phosphatase 178 U/L (39-117); Anion Gap 9 (12-20); Aspartate Amino Transferase 63 U/L (5-37); Bilirubin Total 1.6 mg/dL (0.0-1.0); Blood Urea Nitrogen 14 mg/dL (9-16); Calcium 8.1 mg/dL (8.4-10.2); Carbon Dioxide 21 mmol/L (22-29); Chloride 109 mmol/L (96-108); Creatinine Clr Calc Pharmacy 106.3; Estimated Glomerular Filt Rate > 60; Glucose Random 126 mg/dL (60-115); Magnesium 1.9 mg/dL (1.6-2.6); Potassium 3.3 mmol/L (3.3-5.1); Sodium 136 mmol/L (135-145); Total Protein 6.1 g/dL (6.5-8.0)
--- NOTE | 2023-02-26 17:19 | PC.NURSE ---
patient abx delayed due to ceftriaxone ordered in Triage during RME by provider
[2023-02-26 17:49] LABS: Lipase 27 U/L (8-78)
[2023-02-26 17:55] LABS: Appearance Urine Clear; Color Urine Orange; Glucose Urine UA Negative (Negative); Leukocyte Esterase Urine Small (1+) (Negative); Nitrite Urine Positive (Negative); PH 5.5 (5.0-9.0); Specific Gravity - Urine >= 1.030 (1.005-1.025); UMIC TRIGGER UACC YES; Urine Blood Negative (Negative); Urine Ketones Trace mg/dL (Negative); Urine Protein 30 (1+) mg/dL (Neg-Trace)
[2023-02-26 17:56] LABS: Bacteria Urine None Seen (None Seen); Hyaline Casts Urine 0-2 /LPF (0-2); RBC Urine 0-2 /HPF (0-2); UACC Culture Trigger YES; WBC Urine 0-5 /HPF (0-5)
[2023-02-26 18:07] LABS: IDNOW Serial# 08D9AD1C; Strep A Nucleic Acid Negative (Negative)
[2023-02-26 18:10] LABS: INTERNATIONAL NORM RATIO 1.1 (0.9-1.1); Prothrombin Time 13.7 SEC (11.1-13.3)
[2023-02-26 18:13] LABS: Partial Thromboplastin Time 31.3 SEC (26.0-36.4)
--- NOTE | 2023-02-26 18:28 | PC.NURSE ---
patient resting in bed, respirations equal and unlabored. patient urinating in urinal. does not appear to be in any distress.
== END 2023-02-26 22:13 | disposition home or self-care (01) ==
PROVIDERS: Physician Assistant; Emergency Provider Student in an Organized Health Care Education/Training Program; PCP Internal Medicine
DX: R59.1 Generalized enlarged lymph nodes (principal); A41.9 Sepsis, unspecified organism; N39.0 Urinary tract infection, site not specified; F10.10 Alcohol abuse, uncomplicated; R50.9 Fever, unspecified; Y90.9 Presence of alcohol in blood, level not specified; R79.89 Other specified abnormal findings of blood chemistry; R10.2 Pelvic and perineal pain; R17 Unspecified jaundice; F17.210 Nicotine dependence, cigarettes, uncomplicated; Z11.52 Encounter for screening for COVID-19; Z20.822 Contact with and (suspected) exposure to COVID-19; Z79.899 Other long term (current) drug therapy; Z71.6 Tobacco abuse counseling
CPT/HCPCS: 36415; 74177; 80053; 81001; 82550; 83605; 83690; 83735; 85025; 85610; 85730; 87040; 87086; 87635; 87651; 96361; 96374; 99284; 99285; J0696

== ENCOUNTER 2023-07-04 08:16 | Outpatient (REF) | payer OTHER, SELFPAY ==
[2023-07-04 08:36] LABS: MANUAL DIFF FLAG NO
[2023-07-04 09:11] LABS: Basophils Absolute Auto 0.1 X10*3/uL (0.0-0.2); Basophils Percent Auto 1.1 % (0-2); Eosinophils Absolute Auto 0.4 X10*3/uL (0.0-0.4); Eosinophils Percent Auto 7.7 % (0-4); Hematocrit 46.9 % (42.0-52.0); Hemoglobin 15.5 g/dl (14.0-18.0); Imm Gran Abs Auto 0.01 X10*3/uL (0.00-0.03); Imm Gran Pct Auto 0.2 % (0.0-0.4); Lymphocytes Absolute Auto 2.1 X10*3/uL (1.2-4.9); Lymphocytes Percent Auto 44.8 % (20-40); Mean Corpuscular Hemoglobin 28.9 pg (27.0-33.0); Mean Corpuscular Volume 87.5 fL (80.0-98.0); Mean Platelet Volume 9.7 fL (9.4-12.4); Monocytes Absolute Auto 0.5 X10*3/uL (0.1-1.2); Monocytes Percent Auto 9.9 % (2-11); Neutrophils Absolute Auto 1.7 x10*3/uL (2.0-8.3); Neutrophils Percent Auto 36.3 % (45-73); Platelet Count 126 X10*3/uL (160-400); Red Blood Count 5.36 X10*6/uL (4.60-5.80); Red Cell Distribution Width 13.6 % (11.0-16.0); White Blood Count 4.7 X10*3/uL (4.8-10.8)
[2023-07-04 09:26] LABS: Appearance Urine Clear; Color Urine Yellow; Glucose Urine UA Negative (Negative); Leukocyte Esterase Urine Negative (Negative); Nitrite Urine Negative (Negative); PH 5.5 (5.0-9.0); Urine Blood Negative (Negative); Urine Ketones Negative (Negative); Urine Protein Negative (Neg-Trace)
[2023-07-04 09:54] LABS: Alanine Aminotransferase 23 U/L (0-40); Albumin Level 4.1 g/dL (3.5-5.0); Alkaline Phosphatase 123 U/L (39-117); Anion Gap 13 (12-20); Aspartate Amino Transferase 37 U/L (5-37); Bilirubin Total 0.7 mg/dL (0.0-1.0); Blood Urea Nitrogen 11 mg/dL (9-16); Calcium 9.2 mg/dL (8.4-10.2); Carbon Dioxide 27 mmol/L (22-29); Chloride 106 mmol/L (96-108); Cholesterol 221 mg/dL (<200); Estimated Glomerular Filt Rate > 60; Glucose Fasting 119 mg/dL (60-99); HDL Cholesterol 39 mg/dL (>40); LDL Cholesterol Calculated 151 mg/dL (<100); Potassium 4.1 mmol/L (3.3-5.1); Sodium 142 mmol/L (135-145); Total Protein 7.5 g/dL (6.5-8.0); Triglycerides 159 mg/dL (<150)
[2023-07-04 10:10] LABS: TSH reflex Free T4 2.58 uIU/mL (0.32-4.0); Vitamin D 25-OH Total 6.3 ng/mL (>30)
== END 2023-07-04 08:17 | disposition home or self-care (01) ==
LOC: HO.LAB 08:16
PROVIDERS: PCP Internal Medicine; Visit Provider Internal Medicine
DX: E78.00 Pure hypercholesterolemia, unspecified (principal); R30.0 Dysuria; E55.9 Vitamin D deficiency, unspecified; I10 Essential (primary) hypertension
CPT/HCPCS: 36415; 80053; 80061; 81003; 82306; 84443; 85025

== ENCOUNTER 2023-07-07 17:01 | Outpatient (AMB) | payer OTHER, SELFPAY ==
--- NOTE | 2023-07-07 17:09 | A.OFFPC_ITS ---
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 Required: No Accompanied by: Self / Same As Patient Allergies ENVIRONMENTAL Allergy (Unknown, Uncoded 07/07/23 17:44) ITCHY THROAT Medication List - Last Reconciled 07/07/23 by Doc Marrero MD acetaminophen 650 mg (2 x 325 mg) PO Q4H PRN albuterol sulfate 2.5 mg (0.5 mL) continuous nebulization QID PRN 30 days albuterol sulfate 90 mcg/actuation 2 puffs PO Q6-8H PRN 30 days atorvastatin 10 mg PO DAILY 90 days cetirizine (Zyrtec) 10 mg PO DAILY PRN colchicine 0.6 mg PO DAILY 30 days diphenhydramine HCl (Benadryl Allergy) 25 mg PO TID PRN fenofibrate 160 mg PO DAILY 90 days fluticasone furoate-vilanterol 200-25 mcg/dose (Breo Ellipta) 1 inh inhalation DAILY 30 days fluticasone propion-salmeterol 115-21 mcg/actuation (Advair HFA) 2 puffs inhalation Q12H 30 days ibuprofen 600 mg PO TID PRN meclizine 25 mg PO TID PRN montelukast 10 mg PO DAILY 90 days nitrofurantoin monohyd/m-cryst 100 mg (Macrobid) 100 mg PO Q12H 7 days omeprazole 20 mg PO DAILY 30 days Symbicort 160-4.5 mcg/actuation (budesonide-formoterol) 2 puffs inhalation BID 30 days NS thiamine HCl (vitamin B1) 100 mg PO DAILY 30 days trazodone 50 mg PO BEDTIME PRN 30 days Tobacco use date assessed: 07/07/23 Dental Screening Dental Screen Date: 07/07/23 Did you have a dental visit in the last 12 months?: Yes Did you have a dental problem in the last 6 months where you did not have access to dental care?: No Was dental information given to patient?: Patient has dentist HPI Annual PE HPI Details Patient comes in today for his annual physical examination - was last seen by me a year ago on 07/07/2022 Patient states that he feels okay although he admits that he has not been taking some of his medications for a couple of months now, including his cholesterol medication, as he does not have any more refills left He denies any headaches or dizziness Denies any chest pains, no shortness of breath No nausea /vomiting, no abdominal pain but reports experiencing recurrent heartburns lately - used to take Omeprazole but states that he is currently not on the Rx as his Rx ran out a few months ago No change in bowel habits noted Denies any acute urinary symptoms Had his follow-up labs done a few days ago - to discuss his results [facility] Medical History Asthma Lymphadenopathy Mixed hyperlipidemia Elevated LFTs Alcoholism GERD without esophagitis Obesity (BMI 30-39.9) Anxiety Insomnia Gout Sarcoidosis Pure hypercholesterolemia Asthma Surgical History No pertinent past surgical history Family History Father No problems noted. Mother Diabetes Social History Housing: House Alcohol intake: current Alcohol intake frequency: a few times a week Alcohol type: beer Patient Tobacco Use Status: Current everyday Tobacco user Cigarettes Per Day: 2 e-Cigarette/Vaping Use: Never Used Second Hand Smoke Exposure: Yes service: No Current occupational status: disabled Cognitive needs: No Hearing needs: No Vision needs: Yes Questionnaire PHQ-9 Over the last 2 weeks, how often have you been bothered by any of the following problems? 1. Little interest or pleasure in doing things: not at all 2. Feeling down, depressed, or hopeless: not at all 3. Trouble falling or staying asleep, or sleeping too much: not at all 4. Feeling tired or having little energy: not at all 5. Poor appetite or overeating: not at all 6. Feeling bad about yourself - or that you are a failure or have let yourself or your family down: not at all 7. Trouble concentrating on things, such as reading the newspaper or watching television: not at all 8. Moving or speaking so slowly that other people could have noticed. Or the opposite - being so fidgety or restless that you have been moving around a lot more than usual: not at all 9. Thoughts that you would be better off or of hurting yourself in some way: not at all Total score: 0 Depression Screening Interpretation: Negative Depression Screening Done: Yes 23499 - PHQ-9 Billing: Yes Source: Developed by Drs. Bennie Graff, Anita Aleman, Marek Mckeon and colleagues, with an educational yana from [employer]. Thrive Questionnaire Date Thrive assessed: 07/07/23 I am a: Patient What is your living situation today?: I have a steady place to live Within the past 12 months, did the food you bought not last and you didn't have the money to get more?: Never true Within the past 12 months, did you worry whether your food would run out before you got money to buy more?: Never true Do you have trouble paying for medicines?: No Do you have trouble getting transportation to medical appointments?: No Do you have trouble paying your heating and electricity bill?: No Do you have trouble taking care of your child, family member or friend?: No Do you have trouble with day-to-day activities such as bathing, preparing meals, shopping, managing finances, etc.?: No Are you currently unemployed and looking for a job?: No Are you interested in more education?: No Please select the resources that you would like help with: None Currently or been in a relationship where the following occur: no concerns reported THRIVE Score: 0 AUDIT C Alcohol Use Questionnaire (AUDIT-C) 1. How often do you have a drink containing alcohol?: Never 3. How often do you have six or more drinks on one occasion?: Never Total Score: 0 Score Reviewed/Action Taken: Yes BARON-7 AMB Questionnaire BARON-7 Date BARON - 7 assessed: 07/07/23 Feeling nervous, anxious, or on edge: 0 = Not at all Not being able to stop or control worryin = Not at all Worrying too much about different things: 0 = Not at all Trouble relaxin = Not at all Being so restless that it is hard to sit still: 0 = Not at all Becoming easily annoyed or irritable: 0 = Not at all Feeling afraid as if something awful might happen: 0 = Not at all Total BARON-7 score (0-4 normal; 5-9 mild; 10-14 moderate; 15-21 severe): 0 Source: Developed by Drs. Bennie Graff, Anita Aleman, Marek Mckeon and colleagues, with an educational yana from [employer]. Review of Systems Const Denies chills, Denies fatigue, Denies fever(s), Denies headache(s), Denies malaise and Denies weakness Eyes Denies blurry vision, Denies change in vision, Denies irritation and Denies itchy eyes ENT Denies dysphagia, Denies dizziness, Denies otalgia, Denies headache(s), Denies nasal congestion, Denies neck pain, Denies odynophagia and Denies sore throat Card Denies chest pain, Denies rapid heart rate, Denies irregular heart rhythm, Denies palpitations and Denies dyspnea Resp Denies chest congestion, Denies cough, Denies dyspnea and Denies wheezing GI Denies abdominal pain, Denies bloating, Denies constipation, Denies dysphagia, Reports heartburn (frequent), Denies diarrhea, Denies nausea, Denies odynophagia and Denies vomiting Denies hematuria, Denies difficulty urinating, Denies dysuria, Denies urinary frequency and Denies urinary urgency Musc Denies back pain, Denies arthralgias, Denies joint swelling, Denies muscle weakness and Denies neck pain Skin/Breast Denies change in pigmentation, Denies lesions, Denies rash and Denies unusual bruising Neuro Denies dizziness, Denies headache(s), Denies paresthesias and Denies weakness Endo Denies fatigue and Denies palpitations Aller/Immun Denies itchy eyes and Denies wheezing Physical exam (Primary Care) Vital Signs: Last Vital Signs Pulse 81 07/07/23 17:10 BP 122/78 07/07/23 17:10 Pulse Ox 97 07/07/23 17:10 Oxygen Delivery Method Room Air 07/07/23 17:10 BMI result Body Mass Index 31.0 Tobacco/Smoking Status: Tobacco use Status Tobacco use date assessed 07/07/23 07/07/23 17:12 Patient Tobacco Use Status Current everyday Tobacco 07/07/23 17:12 e-Cigarette/Vaping Use Never Used 07/07/23 17:12 PHQ-9: PHQ-9 Score PHQ-9: Total score 0 07/08/23 03:34 Depression Screening Interpretation: Negative Thrive Assessment: Date of Thrive Assessment Date Thrive assessed 07/07/23 07/07/23 17:12 Currently or been in a relationship where the following occur: no concerns reported Const General: no acute distress, alert and awake Orientation/consciousness: patient oriented x3 HENMT Head: Yes normocephalic and Yes atraumatic Ears: external ears normal, TM's normal bilaterally and EAC's normal General nose exam: No nasal discharge present Face and sinus: Yes normal facial exam and Yes sinuses nontender Teeth and gingiva: dentition normal Throat: Yes posterior oropharynx normal and Yes tonsils normal (no TP congestion) Eyes Eyelids: Yes eyelids normal Conjunctivae: conjunctivae normal Pupils: Equal, round and reactive pupils present EOM: EOMs intact bilaterally Neck Neck: Yes no lymphadenopathy and Yes supple Thyroid: Thyroid normal Resp Auscultation: clear to auscultation bilaterally, no rales and no wheezes Cardio Rate: regular rate Rhythm: regular rhythm Heart sounds: no murmurs GI Palpation (GI): Soft to palpation, nontender and No hepatosplenomegaly present Auscultation: normal bowel sounds General: Yes no CVA tenderness Back/Spine/Pelvis Back: no CVA tenderness Thoracic/Lumbar Spine: thoracic and lumbar spine normal to inspection Skin Lesions: no lesions Rashes: no rashes Neuro General: patient oriented x3, moves all extremities, no focal motor deficits and CN's II-XI intact bilaterally Cranial nerves: Yes Equal, round and reactive pupils present Cognition (Neuro): normal cognition Gait exam (Neuro): Normal gait present Extrem General: Yes no clubbing, cyanosis or edema Results Reviewed Results Reviewed: Laboratory Tests 06/27/22 07/04/23 14:16 08:35 WBC 5.0 4.7 L Hgb 15.7 15.5 Hct 46.5 46.9 D Plt Count 127 L 126 L ESR 2 Sodium 140 142 Potassium 4.0 4.1 Creatinine 0.75 0.82 Estimated GFR > 60 > 60 Random Glucose 90 Fasting Glucose 119 H Calcium 9.3 9.2 D AST 37 ALT 23 Triglycerides 159 H Cholesterol 221 H LDL Cholesterol, Calc 151 H HDL Cholesterol 39 L 25-OH Vitamin D Total 6.3 L TSH 2.58 Ur Specific Anita 1.020 Urine Protein Negative Urine Glucose (UA) Negative Urine Blood Negative Urine Nitrite Negative Ur Leukocyte Esterase Negative Assessment and Plan Assessment & Plan (1) Annual physical exam: Code(s): Z00.00 - Encounter for general adult medical examination without abnormal findings Plan: Results of his labs done a few days ago reviewed and discussed with patient He has never had a screening colonoscopy done in the past (2) Mixed hyperlipidemia: Code(s): E78.2 - Mixed hyperlipidemia Plan: Patient is advised that his cholesterol levels have all increased significantly from previous as he has not taken his cholesterol medications for a couple of months now when his Rx ran out Reinforced low cholesterol diet Will start him back on Atorvastatin 10 mg QD and Fenofibrate 160 mg QD Will recheck his labs and fasting lipids in 3 months for follow-up (3) Elevated LFTs: Code(s): R79.89 - Other specified abnormal findings of blood chemistry Plan: Improved - was most likely due to his weight (hepatosteatosis) Will continue to monitor his LFTs regularly (4) Asthma: Code(s): J45.909 - Unspecified asthma, uncomplicated Qualifiers: Asthma severity: moderate Asthma persistence: persistent Asthma complication type: with acute exacerbation Qualified Code(s): J45.41 - Moderate persistent asthma with (acute) exacerbation Plan: Continue Breo Ellipta 200-25 mcg 1 inhalation QD (Rx refilled), Montelukast 10 mg QD and Albuterol HFA 2 puffs 4 times a day as needed or Albuterol sulfate solution via nebulizer every 6 hours as needed Follow up with pulmonary as scheduled (5) Sarcoidosis: Code(s): D86.9 - Sarcoidosis, unspecified Plan: Stable Chest x-rays done on 10/26/2020 revealed (+) right paratracheal and bilateral hilar prominence similar to the prior study on 03/14/2019. Earlier chest CT on 02/02/2014 showed lymphadenopathy consistent with history of sarcoidosis Follow up with pulmonary as scheduled (6) Sarcoidosis of skin: Code(s): D86.3 - Sarcoidosis of skin Plan: Lesions are predominantly on the left lower leg - most likely cutaneous sarcoid Follow up with dermatology as scheduled (7) Gout: Code(s): M10.9 - Gout, unspecified Qualifiers: Gout site: unspecified site Gout etiology: idiopathic Chronicity: unspecified Qualified Code(s): M10.00 - Idiopathic gout, unspecified site Plan: Has not had any flare ups of his gout lately; serum uric acid level was normal at 5.9 when last checked in December 2021 Reinforced low purine diet Continue Colchicine 0.6 mg QD (8) GERD without esophagitis: Code(s): K21.9 - Gastro-esophageal reflux disease without esophagitis Plan: Dietary restrictions reinforced Will start him back on Omeprazole 20 mg QD PRN - advised that his recent recurrent heartburns are most likely because he stopped taking his Omeprazole a while back He is advised that if his symptoms persist despite going back on his PPI, then he should see Gastroenterology for consideration for EGD (9) Alcoholism: Code(s): F10.20 - Alcohol dependence, uncomplicated Plan: Patient counseled again on drinking and advised to continue abstinence Continue Thiamine (B1) 100 mg QD and Pyridoxine (B6) 100 mg QD (10) Insomnia: Code(s): G47.00 - Insomnia, unspecified Qualifiers: Insomnia type: unspecified Qualified Code(s): G47.00 - Insomnia, unspecified Plan: Sleep hygiene reinforced Continue Trazodone 50 mg Q HS (11) Obesity (BMI 30-39.9): Code(s): E66.9 - Obesity, unspecified Plan: Reinforced diet/exercise as tolerated/lose weight (12) Colon cancer screening: Code(s): Z12.11 - Encounter for screening for malignant neoplasm of colon Plan: Will refer him to gastroenterology for screening colonoscopy - has never had one done in the past Plan Follow up in 3 months Orders: Orders Comprehensive [place]. Panel Fast 3 Months E78.00 - Pure hypercholesterolemia, unspecified, Z00.00 - Encounter for general adult medical examination without abnormal findings TSH reflex Free T4 3 Months E78.00 - Pure hypercholesterolemia, unspecified, Z00.00 - Encounter for general adult medical examination without abnormal findings Complete Blood Count Auto Diff 3 Months D64.9 - Anemia, unspecified, Z00.00 - Encounter for general adult medical examination without abnormal findings Lipid Panel 3 Months E78.00 - Pure hypercholesterolemia, unspecified, Z00.00 - Encounter for general adult medical examination without abnormal findings Microalbumin, Random (w Creat) 3 Months E11.9 - Type 2 diabetes mellitus without complications, Z00.00 - Encounter for general adult medical examination without abnormal findings UA CC w/rflx Micro + Cult 3 Months R30.0 - Dysuria, Z00.00 - Encounter for general adult medical examination without abnormal findings Vitamin D 25-OH Total 3 Months E55.9 - Vitamin D deficiency, unspecified, Z00.00 - Encounter for general adult medical examination without abnormal findings Prostate Specific Antigen 3 Months N40.0 - Benign prostatic hyperplasia without lower urinary tract symptoms, Z00.00 - Encounter for general adult medical examination without abnormal findings Hemoglobin A1c 3 Months R73.01 - Impaired fasting glucose, Z00.00 - Encounter for general adult medical examination without abnormal findings Uric Acid 3 Months M10.9 - Gout, unspecified Referrals Gastroenterology Referral Z12.11 - Encounter for screening for malignant neoplasm of colon Medications: Refilled atorvastatin 10 mg PO DAILY 90 days 90 tabs 1RF E78.00 - Pure hypercholesterolemia, unspecified fluticasone furoate-vilanterol 200-25 mcg/dose (Breo Ellipta) 1 inh inhalation DAILY 30 days 60 ea 11RF J45.909 - Unspecified asthma, uncomplicated fenofibrate 160 mg PO DAILY 90 days 90 tabs 1RF montelukast 10 mg PO DAILY 90 tabs 3RF 90 days J45.41 - Moderate persistent asthma with (acute) exacerbation Coding Level of Care Code Est Pt Prev Care 40-64y(27668) Diagnoses Annual physical exam Z00.00 Mixed hyperlipidemia E78.2 Elevated LFTs R79.89 Moderate persistent asthma with acute exacerbation J45.41 Asthma severity: moderate Asthma persistence: persistent Asthma complication type: with acute exacerbation Sarcoidosis D86.9 Sarcoidosis of skin D86.3 Idiopathic gout, unspecified chronicity, unspecified site M10.00 Gout site: unspecified site Gout etiology: idiopathic Chronicity: unspecified GERD without esophagitis K21.9 Alcoholism F10.20 Insomnia, unspecified type G47.00 Insomnia type: unspecified Obesity (BMI 30-39.9) E66.9 Colon cancer screening Z12.11
[2023-07-07 17:10] VITALS: BP 122/78; PULSE 81; O2SAT 97; BMI 31.0
== END 2023-07-07 17:50 | disposition home or self-care (01) ==
PROVIDERS: PCP Internal Medicine; Visit Provider Internal Medicine
DX: Z00.00 Encounter for general adult medical examination without abnormal findings (principal); E78.2 Mixed hyperlipidemia; R74.01 Elevation of levels of liver transaminase levels; J45.41 Moderate persistent asthma with (acute) exacerbation; M10.00 Idiopathic gout, unspecified site; K21.9 Gastro-esophageal reflux disease without esophagitis; G47.00 Insomnia, unspecified; E55.9 Vitamin D deficiency, unspecified
CPT/HCPCS: 99396

== ENCOUNTER 2023-08-11 11:58 | Outpatient (AMB) | payer OTHER, SELFPAY ==
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
[2023-08-11 12:19] VITALS: BP 120/70; PULSE 67; TEMP 36.6; O2SAT 97
== END 2023-08-11 14:48 | disposition home or self-care (01) ==
PROVIDERS: PCP Internal Medicine; Visit Provider Internal Medicine
DX: S20.219A Contusion of unspecified front wall of thorax, initial encounter (principal)
CPT/HCPCS: 99214

== ENCOUNTER 2023-08-11 13:00 | Outpatient (REF) | payer OTHER, SELFPAY ==
--- NOTE | ~2023-08-11 | XR_ITS ---
EXAMINATION: XR RIBS, LEFT CLINICAL INFORMATION: Chest contusion COMPARISON: None available. TECHNIQUE: Single view chest and 3 views of the left ribs were obtained. FINDINGS: Lungs are clear. No consolidation, pneumothorax, or pleural effusion. The cardiomediastinal silhouette and pulmonary vasculature are normal. Osseous structures are unremarkable. Ribs are intact. No fractures are identified. XR/XR ribs LT min 3V w CXR1V IMPRESSION: Unremarkable examination.
== END 2023-08-11 13:01 | disposition home or self-care (01) ==
LOC: HO.HMGCX 13:00
PROVIDERS: PCP Internal Medicine; Visit Provider Internal Medicine
DX: S20.212A Contusion of left front wall of thorax, initial encounter (principal)
CPT/HCPCS: 71101

== ENCOUNTER 2023-08-12 13:57 | Outpatient (AMB) | payer OTHER, SELFPAY ==
[2023-08-12 14:01] VITALS: BP 124/78; PULSE 72; O2SAT 97; BMI 30.6
--- NOTE | 2023-08-12 14:01 | AM.OFFWIN_ITS ---
Intake Vital Signs 08/12/23 14:01 Height 5 ft 3 in Weight 172 lb 8 oz BMI 30.6 BP 124/78 Blood Pressure Location Lt brachial Position Sitting Pulse 72 Pulse Source Pulse Oximeter Pulse Oximetry (%) 97 Oxygen Delivery Method Room Air Intake Visit Reasons: EP LFT side rib pain (doctors note) Intake Note: Patient is here with left sided rib pain with cough for 3 days, he was seen yesterday,was prescribed meds, but has not picked them up yet, he took tylenol for the pain. 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 Pt was seen and evaluated yesterday by Doctor Samra. Chest xray showed: Lungs are clear. No consolidation, pneumothorax, or pleural effusion. The cardiomediastinal silhouette and pulmonary vasculature are normal. Pt asking for Work note today. [facility] Medical History Asthma Lymphadenopathy Mixed hyperlipidemia Elevated LFTs Alcoholism GERD without esophagitis Obesity (BMI 30-39.9) Anxiety Insomnia Gout Sarcoidosis Pure hypercholesterolemia Asthma Surgical History No pertinent past surgical history Family History Father No problems noted. Mother Diabetes Social History Housing: House Alcohol intake: current Alcohol intake frequency: a few times a week Alcohol type: beer Patient Tobacco Use Status: Current everyday Tobacco user Cigarettes Per Day: 2 e-Cigarette/Vaping Use: Never Used Second Hand Smoke Exposure: Yes service: No Current occupational status: disabled Cognitive needs: No Hearing needs: No Vision needs: Yes Physical Exam Vital Signs: Last Vital Signs Pulse 72 08/12/23 14:01 BP 124/78 08/12/23 14:01 Pulse Ox 97 08/12/23 14:01 Oxygen Delivery Method Room Air 08/12/23 14:01 BMI result Body Mass Index 30.6 Const General: comfortable and no acute distress Orientation/consciousness: patient oriented x3 Limitations: language barrier Chest Chest palpation & inspection: normal inspection of the chest and tenderness (Left mid thoracic region tenderness.) Neuro General: patient oriented x3, gait normal and moves all extremities Psych Speech and movement: Normal speech and movement present Assessment & Plan Assessment & Plan (1) Rib contusion: Code(s): S20.219A - Contusion of unspecified front wall of thorax, initial encounter Qualifiers: Encounter type: initial encounter Laterality: left Qualified Code(s): S20.212A - Contusion of left front wall of thorax, initial encounter Plan: - Pt to pick medications from Pharmacy today. - Take medicine as directed Coding Level of Care Code Est Pt Level 3 (89674) Diagnoses Contusion of rib on left side, initial encounter S20.212A Encounter type: initial encounter Laterality: left Time Spent (min) 15
== END 2023-08-12 15:14 | disposition home or self-care (01) ==
PROVIDERS: PCP Internal Medicine; Visit Provider Nurse Practitioner Family
DX: S20.212A Contusion of left front wall of thorax, initial encounter (principal)
CPT/HCPCS: 99213

== ENCOUNTER 2023-11-21 21:54 | Emergency (ER) | payer OTHER, SELFPAY ==
--- NOTE | ~2023-11-21 | CT_ITS ---
EXAMINATION: HEAD CT WITHOUT CONTRAST CERVICAL SPINE CT WITHOUT CONTRAST CLINICAL INFORMATION: Fall. COMPARISON: 02/21/2015 TECHNIQUE: Contiguous axial imaging of the head was performed without the administration of IV contrast. Axial multidetector volumetric images were also performed through the cervical spine without intravenous contrast. Multiplanar reconstructed images in coronal and sagittal orientations were submitted. This CT examination was performed using dose optimization techniques as appropriate, variously including the following: *Automated exposure control *Adjustment of mA and/or kV according to patient size (this includes techniques or standardized protocols for targeted exams where dose is matched to indication/reason for exam; i.e. extremities or head) *Use of iterative reconstruction technique DOSE: 1217 mGy-cm FINDINGS: HEAD: There is no evidence of acute intracranial hemorrhage or territorial infarction. No abnormal mass-effect or midline shift. No extra-axial fluid collections. Santana to white matter differentiation is well preserved. The ventricles are normal in size and configuration. There is no abnormal attenuation within the brain parenchyma. Focal soft tissue swelling is present in the right perihilar region with a small subcutaneous hematoma overlying the right frontal calvarium. No underlying fractures are identified. The sinuses and mastoid air cells are clear. CERVICAL SPINE: Vertebral body heights are normal. No fractures of the vertebral bodies or posterior elements. Mild left convex cervical curvature. Slight straightening of the normal lordosis. Degenerative osteophytes and sclerosis are present at the atlantodental articulation, though normal alignment is maintained. Craniocervical junction is normal. Mild degenerative disc disease from C4-C5 through C6-C7. Facet joints are normal. Posterior disc osteophyte complexes at C4-C5 and C5-C6 produces mild central canal narrowing. No significant paravertebral soft tissue swelling. Atherosclerotic calcifications are present in the carotid arteries. Imaged portions of the lung apices are clear. CT/CT cervical spine wo IV con IMPRESSION: 1. No acute intracranial pathology. Focal soft tissue swelling in the right periorbital region with a small subcutaneous hematoma overlying the right frontal calvarium. No underlying fractures. 2. No acute fracture or malalignment in the cervical spine. Mild multilevel degenerative disc disease.
--- NOTE | ~2023-11-21 | XR_ITS ---
EXAMINATION: XR WRIST, RIGHT CLINICAL INFORMATION: Fall. COMPARISON: None available. TECHNIQUE: PA, lateral, and oblique views of the right wrist. FINDINGS: There is a transverse distal radial metaphyseal fracture with dorsal tilt of the distal radius and vertex anterior angulation at the fracture site. Soft tissues are swollen. Distal ulna appears intact. Carpal bones are normal. Normal carpal alignment. XR/XR wrist RT min 3V IMPRESSION: Transverse distal radial metaphyseal fracture with dorsal tilt of the distal radial fragment.
[2023-11-21 22:01] VITALS: BP 142/80; PULSE 101; O2SAT 94; BMI 25.4
[2023-11-21 22:06] VITALS: BP 126/68; PULSE 90; RESP 16; TEMP 36.7; O2SAT 97
[2023-11-21] MEDS: Acetaminophen 325 MG TABLET 650 MG PO (23:46)
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
[2023-11-22] MEDS: oxyCODONE HCl Immed Release 5 MG TABLET PO (00:25)
[2023-11-22 00:27] VITALS: BP 126/68; PULSE 90; RESP 16; TEMP 36.7; O2SAT 97
== END 2023-11-22 00:37 | disposition home or self-care (01) ==
PROVIDERS: Emergency Provider Emergency Medicine; PCP Internal Medicine
DX: S52.591A Other fractures of lower end of right radius, initial encounter for closed fracture (principal); S00.83XA Contusion of other part of head, initial encounter; V18.0XXA Pedal cycle driver injured in noncollision transport accident in nontraffic accident, initial encounter; Y93.55 Activity, bike riding; Y92.414 Local residential or business street as the place of occurrence of the external cause; Y99.9 Unspecified external cause status; F17.210 Nicotine dependence, cigarettes, uncomplicated
CPT/HCPCS: 70450; 72125; 73110; 99284

== ENCOUNTER 2023-11-27 07:58 | Outpatient (REF) | payer OTHER, SELFPAY ==
--- NOTE | ~2023-11-27 | XR_ITS ---
EXAMINATION: XR WRIST, RIGHT CLINICAL INFORMATION: Pain; follow-up distal radial metaphyseal fracture. COMPARISON: Right wrist radiographs dated 11/21/2023. TECHNIQUE: PA, lateral, and oblique views of the right wrist. FINDINGS: Bony alignment mineralization is normal. There is stable alignment of a mildly displaced and impacted fracture of the distal right radial metaphysis. There is stable mild vertex anterior angulation. No definite intra-articular extension is noted. No significant new callus formation is noted. No dislocation is seen. There is no focal soft tissue swelling, gas or foreign body. XR/XR wrist RT min 3V IMPRESSION: There is stable alignment of a mildly angulated transverse fracture of the distal right radial metaphysis. No significant new callus formation is noted. Electronically signed by: Azael Dalton MD 12/24/2023 04:48 PM EDT
== END 2023-11-27 07:59 | disposition home or self-care (01) ==
LOC: HO.HOSX 07:58
DX: S52.501A Unspecified fracture of the lower end of right radius, initial encounter for closed fracture (principal); V19.9XXA Pedal cyclist (driver) (passenger) injured in unspecified traffic accident, initial encounter; Y92.9 Unspecified place or not applicable; Y93.9 Activity, unspecified
CPT/HCPCS: 73110; 99202

== ENCOUNTER 2023-11-27 14:20 | Outpatient (AMB) | payer OTHER, SELFPAY ==
[2023-11-27 14:24] VITALS: BMI 25.4
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
== END 2023-11-27 15:20 | disposition home or self-care (01) ==
PROVIDERS: PCP Internal Medicine
DX: S52.501A Unspecified fracture of the lower end of right radius, initial encounter for closed fracture (principal)
CPT/HCPCS: 99204

== ENCOUNTER 2023-12-03 10:59 | Day surgery (SDC) | payer OTHER, SELFPAY ==
--- NOTE | 2023-12-01 15:01 | HO.ANESPROP2 ---
Documented by User: Brenda Parra NP 12/01/23 15:08 HPI - Anesthesia Eval Consult details Narrative: 53yo M for Right Radius Distal Fracture ORIF cutaneous sarcoidosis Follows [facility] pulmo for asthma vs endobronchial sarcoid - last visit 01/2023 with [facility] PMFSH Active Problems Active Problems: All Active Problems Colon cancer screening (Acute) Impaired fasting glucose (Acute) Bronchitis (Acute) Benign paroxysmal vertigo (Acute) Asthma (Acute) Lymphadenopathy (Acute) Asthma exacerbation (Acute) Dizziness (Acute) Sarcoidosis of skin (Acute) Sore throat (Acute) Mixed hyperlipidemia (Acute) Elevated LFTs (Acute) Carias fracture (Acute) Cellulitis (Acute) Fracture of proximal phalanx of left little finger (Acute) Fracture, finger (Acute) Hand injury (Acute) Alcoholism (Acute) GERD without esophagitis (Acute) Obesity (BMI 30-39.9) (Acute) Anxiety (Acute) Insomnia (Acute) Gout (Acute) Sarcoidosis (Acute) Pure hypercholesterolemia (Acute) Asthma (Acute) Annual physical exam (Acute) Past Medical History Medical History (Updated 12/03/23 @ 13:13 by Ying Fonseca MD) Asthma Lymphadenopathy Mixed hyperlipidemia Elevated LFTs Alcoholism GERD without esophagitis Obesity (BMI 30-39.9) Anxiety Insomnia Gout Sarcoidosis Pure hypercholesterolemia Family History Family History Father No problems noted. Mother Diabetes Surgical History Surgical History No pertinent past surgical history Social History Social History (Updated 12/03/23 @ 13:13 by Ying Fonseca MD) Housing: House Alcohol intake: current Alcohol intake frequency: a few times a week Alcohol type: beer Patient Tobacco Use Status: Current everyday Tobacco user Tobacco use type: Cigarette Cigarettes Per Day: 2 e-Cigarette/Vaping Use: Never Used Second Hand Smoke Exposure: Yes service: No Current occupational status: disabled Current occupation: rt handed Cognitive needs: No Hearing needs: No Vision needs: Yes Meds Allergies Allergy/AdvReac Type Severity Reaction Status Date / Time ENVIRONMENTAL Allergy Unknown ITCHY Uncoded 12/03/23 12:03 THROAT Exam Pertinent Lab Results Pertinent Lab Results: Laboratory Tests 07/04/23 08:35 WBC 4.7 L Hgb 15.5 Hct 46.9 D Plt Count 126 L Sodium 142 Potassium 4.1 Chloride 106 Carbon Dioxide 27 BUN 11 Creatinine 0.82 Narrative Narrative: PFT 2022 FLOWS: 1. FEV1 of 79% of predicted at 2.46 L. 2. FVC 75% of predicted at 3.03 L. 3. FEV1 to FVC ratio of 0.81. 4. No bronchodilator response except in small to medium airways. LUNG VOLUMES: 1. Total lung capacity 72% of predicted at 4.17 L. 2. Residual volume 72% of predicted at 1.26 L. 3. Slow vital capacity 72% of predicted at 2.91 L. 4. Expiratory reserve volume 62% of predicted at 0.69 L. 5. Diffusion capacity is normal. IMPRESSION: Moderate restrictive ventilatory defect with no bronchodilator response. Assessment and Plan Assessment Anesthesia Assessment: Chart Reviewed Documented by User: Ying Fonseca MD 12/03/23 13:32 HPI - Anesthesia Eval Consult details Narrative: 53yo M for Right Radius Distal Fracture ORIF cutaneous sarcoidosis Follows [facility] pulmo for asthma vs endobronchial sarcoid - last visit 01/2023 with [facility] Patient fell while intoxicated on 11/21/23 sustaining Right radius distal fracture. PMFSH Active Problems Active Problems: All Active Problems Colon cancer screening (Acute) Impaired fasting glucose (Acute) Bronchitis (Acute) Benign paroxysmal vertigo (Acute) Asthma (Acute) Lymphadenopathy (Acute) Asthma exacerbation (Acute) Dizziness (Acute) Sarcoidosis of skin (Acute) Sore throat (Acute) Mixed hyperlipidemia (Acute) Elevated LFTs (Acute) Carias fracture (Acute) Cellulitis (Acute) Fracture of proximal phalanx of left little finger (Acute) Fracture, finger (Acute) Hand injury (Acute) Alcoholism (Acute)- last drank 2 days ago GERD without esophagitis (Acute) Obesity (BMI 30-39.9) (Acute) Anxiety (Acute) Insomnia (Acute) Gout (Acute) Sarcoidosis of skin Pure hypercholesterolemia (Acute) Asthma (Acute)- inhaler prn Annual physical exam (Acute) Smoker- last cigarette 2 days ago Thrombocytopenia- Plt count 126k 07/04/23 MARY ALICE. Uses CPAP sometimes PFT 07/28/22- Moderately restrictive defect. No bronchodilator response Past Medical History Medical History (Updated 12/03/23 @ 13:13 by Ying Fonseca MD) Asthma Lymphadenopathy Mixed hyperlipidemia Elevated LFTs Alcoholism GERD without esophagitis Obesity (BMI 30-39.9) Anxiety Insomnia Gout Sarcoidosis Pure hypercholesterolemia Family History Family History Father No problems noted. Mother Diabetes Family history of problems with anesthesia: No Surgical History Surgical History No pertinent past surgical history History of Problems with Anesthesia: No Social History Social History (Updated 12/03/23 @ 13:13 by Ying Fonseca MD) Housing: House Alcohol intake: current Alcohol intake frequency: a few times a week Alcohol type: beer Patient Tobacco Use Status: Current everyday Tobacco user Tobacco use type: Cigarette Cigarettes Per Day: 2 e-Cigarette/Vaping Use: Never Used Second Hand Smoke Exposure: Yes service: No Current occupational status: disabled Current occupation: rt handed Cognitive needs: No Hearing needs: No Vision needs: Yes Meds Allergies Allergy/AdvReac Type Severity Reaction Status Date / Time ENVIRONMENTAL Allergy Unknown ITCHY Uncoded 12/03/23 12:03 THROAT Exam Height,Weight and Vital Signs: Height 5 ft 1 in Weight 75.296 kg Vital Signs Temp Pulse Resp BP Pulse Ox O2 Del Method 12/03/23 12:19 99.0 F 83 16 136/86 96 Room Air Airway Mallampati Class: III TM Dist: >3cm Neck ROM: Full Loose/Missing/Broken Teeth: Yes Heart: RRR Lungs: CTAB Assessment and Plan Assessment Anesthesia Assessment: Anesthesia Plan Discussed and Chart Reviewed Final Anesthetic Review Family History of Problems with Anesthesia: No History of Problems with Anesthesia: No NPO: Yes ASA Class: III Final Preanesthetic Review: No Changes in Pt Med Stat, Meds/Allgs Chart Reviewed, Consent Obtained/Reviewed and Anes Risks/Benef Reviewed Patient Risk: Intermediate Procedure Risk: Low Assessment/Block/Sedation in SS: Assess/Block/Sedation-SS Anesthetic Plan Anesthetic Plan: GA and Regional Block (Right brachial plexus) Disposition: Standard PACU
[2023-12-03] VITALS (7 sets, daily range): BP systolic 129–154; BP diastolic 74–91; PULSE 83–96; RESP 14–18; TEMP 36.2–37.2; O2SAT 92–96; BMI 31.4
--- NOTE | ~2023-12-03 | FL_ITS ---
EXAMINATION: XR FLUOROSCOPY WITH IMAGES CLINICAL INFORMATION: ORIF distal radial fracture COMPARISON: Right wrist radiographs 11/27/2023. TECHNIQUE: Fluoroscopy provided to: Dr. Morris Fluoroscopy time: 31.32 seconds DAP: 0.0583 Gycm2 Images: 3 FINDINGS: 3 spot coned-down images of the right wrist during ORIF of distal radial fracture with volar plate and screw fixation. Grossly no complication. Anatomic alignment restored. Blunted ulnar styloid with negative ulnar variance. FL/FL guidance in OR IMPRESSION: Fluoroscopic guidance. Please refer to the full operative report for details. Electronically signed by: Edwin Dean MD 01/29/2024 04:15 PM EDT
--- NOTE | 2023-12-03 10:53 | W.PM.OPN ---
Operative Note Operative Note Date of Service: 12/03/23 Narrative: Operative Note Narrative: Preop diagnosis: 1. Right Distal radius fracture Postop diagnosis: Same Procedure: 1. Right Distal radius fracture open reduction internal fixation Surgeon: Dorothy Morris MD Inside Sales Assistant: Shahbaz SCOTT Anesthesia: General anesthesia plus regional block Findings: Still radius fracture Implants: A 3 hole Accu Med volar locking plate, with 5 X 2.3 mm locking pegs/screws, and 3 3.5 mm cortical screws Tourniquet time: 63 minutes EBL: 5.0 ml Specimen: None Drains: None Complications: None Disposition: Brought to the recovery room in stable condition Plan: Follow-up in 10-14 days for wound check, suture removal and postop radiographs The patient will be placed in either a short-arm cast or a volar wrist splint. Encouraged no lifting of anything heavier than a cell phone. Please encourage active and passive range of motion of the digits. Follow-up at 4-5 weeks postop for repeat radiographs. Indications: The patient is a 53 year old man with right distal radius fracture . The risks and benefits of operative treatment, including but not limited to risk of damage to blood vessels, nerves, tendons, infection, recurrence, persistent pain or numbness, incomplete resolution of preoperative symptoms, or need for further surgery were discussed with the patient and they wished to proceed with surgery. Procedure: Once consent was obtained patient was brought back to the operating suite and placed in the operating table in a supine position. A regional block was performed by the anesthesia team. Perioperative antibiotics and anesthesia was administered by the anesthesia team. A tourniquet was applied to the proximal aspect of the right upper extremity and the limb was prepped and draped in a standard surgical fashion. The limb was elevated exsanguinated with Esmarch bandage and the tourniquet inflated to 250 mm of mercury for a total tourniquet time of 63 minutes. The FluoroScan was used throughout the case to assess our reduction, and facilitate implant placement. A gentle closed reduction was 1st performed on the patient's right distal radius fracture. Was assessed radiographically before proceeding with the reduction internal fixation. I then made an 8 cm longitudinal incision over the distal aspect of the flexor carpi radialis tendon. The incision was made through the skin to the subcutaneous tissue using a 15. Blade. Then carefully dissected down to flexor carpi radialis tendon she tenotomy scissors. The FCR tendon sheath was then incised longitudinally using tenotomy scissors under direct visualization. The FCR tendon was then retracted ulnarly. I then made a longitudinal incision in the volar forearm fascia through the floor of FCR tendon sheath using tenotomy scissors under direct visualization. I identified the interval between the radial artery and the flexor tendons. This interval was developed further with my index finger, releasing some of the muscular fibers of the flexor pollicis longus. A dull weatlander retractor was then placed. I then created an ulnarly based flap of the pronator quadratus by releasing the radial and distal edges using a 15. Blade. A Randall elevator was used to elevate the pronator quadratus from the volar surface of the distal radius. This then revealed to us our distal radius fracture. An open reduction was then performed on our distal radius fracture. I then placed a short narrow 3 hole Accu Med volar locking plate on the volar surface of the distal radius. I placed a single K-wire through the distal aspect of the plate and into the distal radius. This was assessed using fluoroscopic images. I was satisfied with the placement of our plate. I then placed 5 x 2.3 mm locking screws/pegs in the distal aspect of the plate and distal radius by 1st drilling bicortically with a 1.8 mm drill bit, measuring with a depth gauge, and placing the appropriate length locking screws/pegs. The placement of our plate and screws was then assessed again using fluoroscopic images. The once satisfied with the placement of the volar locking plate and screws on the distal aspect of the distal radius, the plate was then reduced to the shaft of the radius. I then placed 3 3.5 mm cortical screws to the proximal aspect of the plate and into the shaft of the radius. This was done by 1st drilling bicortically with a 2.8 mm drill bit, measuring with a depth gauge, and placing the appropriate length screw. Final radiographs were then obtained. The DRUJ was assessed and found to be stable on exam. I was satisfied with our reduction and placement of all implants. At this point the wound was irrigated with normal saline. The pronator quadratus was reduced back over the volar locking plate using some 3-0 Vicryl suture material. The tourniquet was then deflated and hemostasis was obtained with a brief period of local pressure and bipolar monopolar electrocautery. The subcutaneous layer was then reapproximated using some 4-0 Vicryl suture, and the skin edges were reapproximated using some 5 0 Prolene suture. The wound was then infiltrated with some 1% lidocaine with epinephrine postop pain control. A sterile dressing and a short dorsal splint allowing for active flexion and extension of the digits was applied. The patient appears to have tolerated the procedure well and with no complications. All digits were well vascularized conclusion of the case.
[2023-12-03] MEDS: Lactated Ringers 1,000 ML 100 ML IVCONT (12:20)
--- NOTE | 2023-12-03 13:28 | MHC.SHP ---
Pre-Procedural Eval Section A - 24 Hr Update-Section A only Date of Service: 12/03/23 The patient is an INPATIENT: No Changes since office visit: No Cold of Flu in the past 2 weeks, No New Medical Problems, No Changes in Medication and No Patient answered all questions The patient has been examined within 24 hours of the surgical procedure. The History & Physical has been completed within 30 days and I have reviewed it.: Yes Section B - Complete if H&P > 30 days Chief Complaint: Other fractures of lower end of right radius, Allergies: Allergies Allergy/AdvReac Type Severity Reaction Status Date / Time ENVIRONMENTAL Allergy Unknown ITCHY Uncoded 12/03/23 12:03 THROAT Plan I have reviewed the history and physical and performed a pertinent physical examination on my patient. No changes have occurred unless specified. Time Spent With Patient Time: Total time managing care of this patient today ____ minutes.
[2023-12-03] MEDS: oxyCODONE HCl Immed Release 5 MG TABLET PO (16:25)
== END 2023-12-03 16:40 | disposition home or self-care (01) ==
PROVIDERS: PCP Internal Medicine; Visit Provider Orthopaedic Surgery
PROC: (CPT 25607; principal; 2023-12-03 13:10)
DX: S52.591A Other fractures of lower end of right radius, initial encounter for closed fracture (principal); M25.531 Pain in right wrist; R20.0 Anesthesia of skin; R20.2 Paresthesia of skin; V19.9XXA Pedal cyclist (driver) (passenger) injured in unspecified traffic accident, initial encounter; Y93.55 Activity, bike riding; Y92.9 Unspecified place or not applicable; Y99.9 Unspecified external cause status; F10.20 Alcohol dependence, uncomplicated; D86.9 Sarcoidosis, unspecified; E78.00 Pure hypercholesterolemia, unspecified; K21.9 Gastro-esophageal reflux disease without esophagitis; M10.9 Gout, unspecified; J45.909 Unspecified asthma, uncomplicated; E78.2 Mixed hyperlipidemia; R59.1 Generalized enlarged lymph nodes; Z79.1 Long term (current) use of non-steroidal anti-inflammatories (NSAID); F17.210 Nicotine dependence, cigarettes, uncomplicated
CPT/HCPCS: 25607; C1713; J0131; J0665; J0690; J1100; J2250; J2405; J2704; J3010

== ENCOUNTER → 2023-12-03 10:59 | Outpatient (BNV) | payer OTHER, SELFPAY | PROVIDERS: PCP Internal Medicine; Visit Provider Orthopaedic Surgery | DX: S52.591A Other fractures of lower end of right radius, initial encounter for closed fracture (principal) | CPT/HCPCS: 25607 ==

== ENCOUNTER 2023-12-15 10:37 | Outpatient (REF) | payer OTHER, SELFPAY ==
--- NOTE | ~2023-12-15 | XR_ITS ---
EXAMINATION: XR WRIST, RIGHT CLINICAL INFORMATION: Pain. COMPARISON: Prior radiographs, most recently 11/27/2023; fluoroscopy dated 12/03/2023. TECHNIQUE: PA, lateral, and oblique views of the right wrist. FINDINGS: Bony alignment and mineralization are normal. There is well-maintained alignment of a distal radial metaphyseal fracture status-post ORIF, with intact fixator plate and fixator screws. No hardware failure or loosening is seen. The proximal distal carpal rows are intact. There is no focal soft tissue swelling, gas or foreign body. XR/XR wrist RT min 3V IMPRESSION: There is well-maintained alignment of a transverse fracture of the distal right radial metaphysis, with intact orthopedic fixator plate and fixator screws. There is no new callus formation. Electronically signed by: Azael Dalton MD 01/07/2024 10:45 PM EDT
== END 2023-12-15 10:38 | disposition home or self-care (01) ==
LOC: HO.HOSX 10:37
DX: S52.501D Unspecified fracture of the lower end of right radius, subsequent encounter for closed fracture with routine healing (principal)
CPT/HCPCS: 73110; 99212

== ENCOUNTER 2023-12-15 14:27 | Outpatient (AMB) | payer OTHER, SELFPAY ==
--- NOTE | 2023-12-15 14:45 | MHC.OFFVIS ---
Intake Visit Reasons: PO RT distal radius ORIF 12/03/23 AR Intake Note: Hua is a right hand dominant male who presents today post operatively s/p right distal radius fracture open reduction internal fixation DOS: 12/03/23 w/ AR. Patient reports doing well however he is experiencing a lot of pain at incision area. Inside Sales Engineer Name: Anselmo ID#[id number] Allergies ENVIRONMENTAL Allergy (Unknown, Uncoded 12/15/23 14:50) ITCHY THROAT HPI HPI PO RT distal radius ORIF 12/03/23 AR: Details: Patient is a 53-year-old male who presents for 2 week postoperative evaluation of right distal radius ORIF, DOS 12/03/23. Patient reports that he is doing well, but he is still experiencing discomfort in the right distal radius. The patient reports that he is feeling much better than he did pre-operatively. The patient states that he has been very careful since surgery, and has been avoiding his bicycle since DOI. Patient reports normal sensation in the RT hand at this time. Patient reports that he can make a closed fist at this time. No other acute complaints or concerns at this time. [facility] Medical History (Updated 12/03/23 @ 13:13 by Ying Fonseca MD) Asthma Lymphadenopathy Mixed hyperlipidemia Elevated LFTs Alcoholism GERD without esophagitis Obesity (BMI 30-39.9) Anxiety Insomnia Gout Sarcoidosis Pure hypercholesterolemia Surgical History No pertinent past surgical history Family History Father No problems noted. Mother Diabetes Social History (Updated 12/03/23 @ 13:13 by Ying Fonseca MD) Housing: House Alcohol intake: current Alcohol intake frequency: a few times a week Alcohol type: beer Patient Tobacco Use Status: Current everyday Tobacco user Tobacco use type: Cigarette Cigarettes Per Day: 2 e-Cigarette/Vaping Use: Never Used Second Hand Smoke Exposure: Yes service: No Current occupational status: disabled Current occupation: rt handed Cognitive needs: No Hearing needs: No Vision needs: Yes Review of Systems Const All systems reviewed & are unremarkable except as noted in HPI and below Physical Exam Extrem Other: Patient is alert, oriented, and in no acute distress. Neuro: Median, ulnar, radial nerves motor and sensory intact and sensation is normal to the tips of all digits. Vascular: Cap refill brisk Pain: Patient does report tenderness to palpation about the right distal radius, although states that this has improved since prior to surgery No other tenderness to palpation noted. ROM: Patient is able to make a closed fist without difficulty Skin: Well-healing incision site noted on the volar aspect of the right distal radius. No active drainage General: Mild ecchymosis noted, erythema, or evidence of infection. Psych: Appears grossly normal Affect normal Attitude cooperative Results Reviewed Results Reviewed: X-rays obtained in the office today and independently reviewed by me, Shahbaz Bernstein PA-C, demonstrate surgically repaired fracture of the right distal radius with plate and screws in place and in satisfactory clinical alignment. Assessment & Plan Assessment & Plan (1) Distal radius fracture, right: Code(s): S52.501A - Unspecified fracture of the lower end of right radius, initial encounter for closed fracture Category: Medical Plan 1. Right distal radius fracture status post ORIF DOS 12/03/2023 Patient appears to be recovering well postoperatively Patient is educated about the typical recovery course At this time, the patient is removed from his splint and placed into a short-arm cast for 3 weeks Patient is educated about typical cast care and precautions Patient is advised that if his cast gets wet, dirty, or damaged, he should present to the office for new cast Patient is advised to continue avoiding any biking, scooter ring, or other high energy activities that could result in re-injury Patient is amenable to this plan Patient will follow-up in 3 weeks for repeat x-rays with cast off, sooner with any acute concerns Orders: Orders XR wrist RT min 3V 12/15/23 M25.531 - Pain in right wrist Coding Level of Care Code Global (57310) Diagnoses Distal radius fracture, right S52.501A
== END 2023-12-15 15:45 | disposition home or self-care (01) ==
PROVIDERS: PCP Internal Medicine
DX: S52.501A Unspecified fracture of the lower end of right radius, initial encounter for closed fracture (principal)
CPT/HCPCS: 99024

== ENCOUNTER 2024-01-05 14:14 | Outpatient (REF) | payer OTHER, SELFPAY ==
--- NOTE | ~2024-01-05 | XR_ITS ---
EXAMINATION: XR WRIST, RIGHT CLINICAL INFORMATION: Pain in the right wrist COMPARISON: Multiple prior examinations most recently 12/15/2023. TECHNIQUE: PA, lateral, and oblique views of the right wrist. FINDINGS: Postoperative changes redemonstrated with plate and screw fixation noted in place intact without change. No hardware fracture. Distal radius fracture redemonstrated essentially unchanged with unchanged alignment. Remaining bones joints and soft tissues unremarkable. XR/XR wrist RT min 3V IMPRESSION: Stable postoperative changes related to ORIF of distal radius fracture. Electronically signed by: Josh Whitney MD 01/20/2024 07:21 AM EDT
== END 2024-01-05 14:15 | disposition home or self-care (01) ==
LOC: HO.HOSX 14:14
PROVIDERS: PCP Internal Medicine
DX: M25.531 Pain in right wrist (principal); S52.501A Unspecified fracture of the lower end of right radius, initial encounter for closed fracture
CPT/HCPCS: 73110; 99212

== ENCOUNTER 2024-01-05 14:58 | Outpatient (AMB) | payer OTHER, SELFPAY ==
--- NOTE | 2024-01-05 15:28 | A.OFFVIS_ITS ---
Intake Visit Reasons: PO RT distal radius ORIF 12/03/23 AR Intake Note: Hua is a 53 year old male who presents today post operatively s/p right distal radius fracture open reduction internal fixation DOS: 12/03/2023 w/ Dr Morris. Patient reports stiffness and pain w/ ROM. Other than this he has no other cocerns. Allergies ENVIRONMENTAL Allergy (Unknown, Uncoded 01/05/24 15:38) ITCHY THROAT HPI HPI PO RT distal radius ORIF 12/03/23 AR: Details: Patient is a 53-year-old male who presents for postoperative evaluation status post right distal radius ORIF, DOS 12/03/2023. Today, the patient reports that he is feeling well, but he does feel that his wrist is very stiff since being removed from the cast prior to x-ray. The patient states that he is experiencing very minimal pain at baseline in the right wrist, and then his discomfort is mostly a stiff feeling with attempted range of motion. Patient reports no numbness or tingling in the digits of the right hand. No other acute complaints or concerns at this time. [facility] Medical History (Updated 12/03/23 @ 13:13 by Ying Fonseca MD) Asthma Lymphadenopathy Mixed hyperlipidemia Elevated LFTs Alcoholism GERD without esophagitis Obesity (BMI 30-39.9) Anxiety Insomnia Gout Sarcoidosis Pure hypercholesterolemia Surgical History No pertinent past surgical history Family History Father No problems noted. Mother Diabetes Social History (Updated 12/03/23 @ 13:13 by Ying Fonseca MD) Housing: House Alcohol intake: current Alcohol intake frequency: a few times a week Alcohol type: beer Patient Tobacco Use Status: Current everyday Tobacco user Tobacco use type: Cigarette Cigarettes Per Day: 2 e-Cigarette/Vaping Use: Never Used Second Hand Smoke Exposure: Yes service: No Current occupational status: disabled Current occupation: rt handed Cognitive needs: No Hearing needs: No Vision needs: Yes Physical Exam Extrem Other: Patient is alert, oriented, and in no acute distress. Neuro: Median, ulnar, radial nerves motor and sensory intact and sensation is normal to the tips of all digits. Vascular: Cap refill brisk Pain: Patient does report mild tenderness to palpation of the right radial styloid No tenderness to palpation about the incision site or the volar distal radius No other tenderness to palpation noted. ROM: Patient is able to make a closed fist with encouragement Patient is able to flex the right wrist to approximately 45-50 degrees Patient is unable to extend the right wrist beyond neutral, due to severe stiffness Skin: Well-healed incision site noted on the volar aspect of the right distal radius. No active drainage General: No ecchymosis, erythema, evidence of infection noted Psych: Appears grossly normal Affect normal Attitude cooperative Assessment & Plan Assessment & Plan (1) Distal radius fracture, right: Code(s): S52.501A - Unspecified fracture of the lower end of right radius, initial encounter for closed fracture Category: Medical Plan 1. Right distal radius fracture status post ORIF DOS 12/03/2023 Patient appears to be recovering well postoperatively Patient is educated about the typical recovery course At this time, the patient is informed that he no longer has to be in a cast, and then he will be provided with a Velcro wrist splint to wear with daytime activities Patient is also informed that while he is at rest, bathing, or sleeping, he should not be wearing a Velcro wrist splint, and should be working on gentle range of motion about the right hand and wrist Patient is also referred to occupational hand therapy to work on range of motion, strengthening of the right hand and wrist Patient is amenable to this plan Patient will follow-up in 4-6 weeks with repeat x-rays for reassessment, sooner with any acute concerns Orders: Orders XR wrist RT min 3V 01/05/24 M25.531 - Pain in right wrist OT Evaluation and Treatment 01/05/24 S52.501A - Unspecified fracture of the lower end of right radius, initial encounter for closed fracture Medications: Refilled ibuprofen 600 mg PO Q6-8H PRN 20 tabs 0RF pain Coding Level of Care Code Global (52542) Diagnoses Distal radius fracture, right S52.501A
== END 2024-01-05 16:20 | disposition home or self-care (01) ==
PROVIDERS: PCP Internal Medicine
DX: S52.501A Unspecified fracture of the lower end of right radius, initial encounter for closed fracture (principal)
CPT/HCPCS: 99024

== ENCOUNTER 2024-02-09 12:57 | Outpatient (REF) | payer OTHER, SELFPAY ==
--- NOTE | ~2024-02-09 | XR_ITS ---
EXAMINATION: XR WRIST RIGHT 3 VIEWS CLINICAL INFORMATION: Pain in right wrist M25.531. COMPARISON: XR right wrist 01/05/2024. TECHNIQUE: PA, lateral, and oblique views of the right wrist. FINDINGS: Distal radial volar stabilization plate and fixation screws. No hardware fracture or perihardware lucency. Redemonstration of a distal radial fracture in unchanged anatomic alignment with interval new bone/callus formation and osseous bridging when compared to the prior examination. Exact degree of osseous bridging cannot be evaluated on plain radiographs. No new fracture or dislocation. No concerning lytic or blastic osseous lesion. XR/XR wrist RT min 3V IMPRESSION: Distal radial ORIF without evidence of complication. Distal radial fracture in unchanged anatomic alignment with interval new bone/callus formation and osseous bridging when compared to the prior examination. Exact degree of osseous bridging cannot be evaluated on plain radiographs. Electronically signed by: Florentin Thao MD 04/06/2024 12:13 PM [facility]
== END 2024-02-09 12:58 | disposition home or self-care (01) ==
LOC: HO.HOSX 12:57
DX: S52.501D Unspecified fracture of the lower end of right radius, subsequent encounter for closed fracture with routine healing (principal)
CPT/HCPCS: 73110; 99212

== ENCOUNTER 2024-02-09 14:39 | Outpatient (AMB) | payer OTHER, SELFPAY ==
--- NOTE | 2024-02-09 14:52 | A.OFFVIS_ITS ---
Intake Visit Reasons: PO RT distal radius ORIF 12/03/23 AR Intake Note: Hua is a 53 year old right hand dominant male who presents today post operatively s/p right distal radius fracture ORIF DOS: 12/03/2023 w/ Dr Morris. Patient reports he continues to have pain and is unable to make a full fist. He has had improvement in his ROM with attending OT. He continues to wear wrist brace as instructed. Editor Managing Director Required: Yes Editor Managing Director Services: Editor Managing Director Present Editor Managing Director Name: Christopher ID#[id number] Allergies ENVIRONMENTAL Allergy (Unknown, Uncoded 02/09/24 14:54) ITCHY THROAT HPI HPI PO RT distal radius ORIF 12/03/23 AR: Details: Patient is a 53-year-old male who presents for evaluation status post right distal radius ORIF, DOS 12/03/2023. Today, the patient reports that he is feeling very well, is not experiencing any pain at baseline. Patient has been faithful with wearing his Velcro wrist splint with daytime activities, and has been avoiding any high energy activities where risk of injury is elevated. The patient does report that he feels his range of motion of both his right hand and right wrist has been limited since previous visit, but it has improved. Patient denies any numbness or tingling in the right hand. No other acute complaints or concerns at this time. [facility] Medical History (Updated 12/03/23 @ 13:13 by Ying Fonseca MD) Asthma Lymphadenopathy Mixed hyperlipidemia Elevated LFTs Alcoholism GERD without esophagitis Obesity (BMI 30-39.9) Anxiety Insomnia Gout Sarcoidosis Pure hypercholesterolemia Surgical History No pertinent past surgical history Family History Father No problems noted. Mother Diabetes Social History Housing: House Alcohol intake: current Alcohol intake frequency: a few times a week Alcohol type: beer Patient Tobacco Use Status: Current everyday Tobacco user Tobacco use type: Cigarette Cigarettes Per Day: 2 e-Cigarette/Vaping Use: Never Used Second Hand Smoke Exposure: Yes service: No Current occupational status: disabled Current occupation: rt handed Cognitive needs: No Hearing needs: No Vision needs: Yes Physical Exam Extrem Other: Patient is alert, oriented, and in no acute distress. Neuro: Median, ulnar, radial nerves motor and sensory intact and sensation is normal to the tips of all digits. Vascular: Cap refill brisk Pain: No tenderness to palpation of the volar distal radius, radial styloid, ulnar styloid, DRUJ, or elsewhere in the right wrist ROM: Patient is able to make a closed fist with encouragement Patient is able to flex the right wrist to approximately 45-50 degrees Patient is able to extend the right wrist to approximately 5-10 degrees beyond neutral, otherwise limited due to stiffness Passive range of motion, particularly extension of the right wrist, also limited Skin: Well-healed incision site noted on the volar aspect of the right distal radius. No active drainage General: No ecchymosis, erythema, evidence of infection noted Psych: Appears grossly normal Affect normal Attitude cooperative Results Reviewed Results Reviewed: X-rays obtained in the office today and independently reviewed by me, Shahbaz Bernstein PA-C, demonstrate well approximated fracture of the right distal radius with orthopedic hardware in place and in satisfactory clinical alignment and evidence of interval bony healing. Assessment & Plan Assessment & Plan (1) Distal radius fracture, right: Code(s): S52.501A - Unspecified fracture of the lower end of right radius, initial encounter for closed fracture Category: Medical Plan 1. Right distal radius fracture status post ORIF DOS 12/03/2023 Patient appears to be recovering well postoperatively Patient is educated about the typical recovery course At this time, patient is informed that he only has to wear the Velcro wrist splint with high energy activities or activities where he is going to be in a crowded area Patient is also advised that he should continue to avoid high-energy activities such as biking or skateboarding for a further 4 weeks to allow for full bony healing Patient is also recommended to continue with occupational therapy to help with his wrist and hand range of motion Patient is amenable to this plan Patient will follow-up in 4 weeks for [id number] check, sooner with any acute concerns Orders: Orders XR wrist RT min 3V Today M25.531 - Pain in right wrist Coding Level of Care Code Global (44597) Diagnoses Distal radius fracture, right S52.501A
== END 2024-02-09 15:16 | disposition home or self-care (01) ==
PROVIDERS: PCP Internal Medicine
DX: S52.501A Unspecified fracture of the lower end of right radius, initial encounter for closed fracture (principal)
CPT/HCPCS: 99024

== ENCOUNTER 2024-03-02 06:46 | Emergency (ER) | payer OTHER, SELFPAY ==
[2024-03-02 07:17] VITALS: BP 125/68; PULSE 92; RESP 16; TEMP 36.6; O2SAT 98; BMI 27.8
--- NOTE | 2024-03-02 07:47 | ED_ITS ---
HPI - General Adult General Chief complaint: Extremity Injury, Lower Stated complaint: pain in left elbow Time Seen by Provider: 03/02/24 07:39 Source: patient Mode of arrival: ambulatory Limitations: no limitations History of Present Illness ED Provider: Dr. Wells HPI narrative: left arm pain and swelling for 2 days. He denies fever, trauma. He does have a history of gout. Onset (ago): day(s) Related Data Previous Rx's ?Medication ?Instructions ?Recorded thiamine HCl (vitamin B1) 100 mg 100 mg PO DAILY 30 days #30 tabs 05/16/20 tablet colchicine 0.6 mg tablet 0.6 mg PO DAILY 30 days #30 tabs 11/05/20 diphenhydramine HCl 25 mg tablet 25 mg PO TID PRN itching #14 tabs 07/24/21 (Benadryl Allergy) ibuprofen 600 mg tablet 600 mg PO TID PRN pain #20 tabs 12/09/21 trazodone 50 mg tablet 50 mg PO BEDTIME PRN insomnia 30 01/31/22 days #30 tabs albuterol sulfate 2.5 mg/0.5 mL 2.5 mg (0.5 mL) continuous 05/16/22 solution for nebulization nebulization QID PRN shortness of breath or wheezing 30 days #120 ea Symbicort 160 mcg-4.5 2 puff inhalation BID 30 days 06/27/22 mcg/actuation HFA aerosol inhaler #10.2 grams (budesonide-formoterol) cetirizine 10 mg tablet (Zyrtec) 10 mg PO DAILY PRN allergy 06/27/22 symptoms #30 tabs meclizine 25 mg tablet 25 mg PO TID PRN dizziness #30 tabs 07/07/22 fluticasone propionate 115 2 puff inhalation Q12H 30 days #12 07/09/22 mcg-salmeterol 21 mcg/actuation grams HFA inhaler (Advair HFA) albuterol sulfate 90 mcg/actuation 2 puff PO Q6-8H PRN shortness of 01/30/23 aerosol inhaler breath or wheezing 30 days #8.5 grams acetaminophen 325 mg capsule 650 mg (2 x 325 mg) PO Q4H PRN 02/26/23 fever or pain #20 caps atorvastatin 10 mg tablet 10 mg PO DAILY 90 days #90 tabs 07/07/23 fluticasone furoate 200 1 inh inhalation DAILY 30 days #60 07/07/23 mcg-vilanterol 25 mcg/dose ea inhalation powder (Breo Ellipta) cholecalciferol (vitamin D3) 50 50 mcg PO DAILY 90 days #90 caps 07/08/23 mcg (2,000 unit) capsule fenofibrate 160 mg tablet 160 mg PO DAILY 90 days #90 tabs 07/08/23 montelukast 10 mg tablet 10 mg PO DAILY 90 days #90 tabs 07/08/23 meloxicam 15 mg tablet 15 mg PO DAILY #14 tabs 08/13/23 omeprazole 20 mg capsule,delayed 20 mg PO DAILY #90 caps 10/13/23 release ibuprofen 600 mg tablet 600 mg PO Q6-8H PRN pain #20 tabs 01/05/24 naproxen 500 mg tablet (Naprosyn) 500 mg PO BID #20 tabs 03/02/24 Allergies Allergy/AdvReac Type Severity Reaction Status Date / Time ENVIRONMENTAL Allergy Unknown ITCHY Uncoded 03/02/24 07:20 THROAT Review of Systems Review of Systems: Yes all other systems are reviewed and are negative Neurologic: Denies Sensory deficit (Neuro) PMFSH Past Medical History Medical History Asthma Lymphadenopathy Mixed hyperlipidemia Elevated LFTs Alcoholism GERD without esophagitis Obesity (BMI 30-39.9) Anxiety Insomnia Gout Sarcoidosis Pure hypercholesterolemia Surgical History No pertinent past surgical history Family History Family History Father No problems noted. Mother Diabetes Social History Social History Housing: House Alcohol intake: current Alcohol intake frequency: a few times a week Alcohol type: beer Patient Tobacco Use Status: Current everyday Tobacco user Tobacco use type: Cigarette Cigarettes Per Day: 2 e-Cigarette/Vaping Use: Never Used Second Hand Smoke Exposure: Yes Advance Directives: No Advance Directives Information Provided: Yes Do you have a plan to hurt others: No Plan service: No Current occupational status: disabled Current occupation: rt handed Cognitive needs: No Hearing needs: No Vision needs: Yes Physical Exam ED Vital Signs: Vital Signs - 24 hr 03/02/24 07:17 03/02/24 07:57 03/02/24 08:39 Temperature 97.9 F 99.4 F 99.4 F Pulse Rate 92 97 97 Respiratory Rate 16 15 15 Blood Pressure 125/68 126/86 126/86 Pulse Oximetry 98 95 95 Oxygen Delivery Method Room Air Room Air Room Air BMI result Body Mass Index 27.8 Const General: healthy appearing Nutritional Appearance: average body habitus Orientation/consciousness: oriented to person and patient oriented x3 Limitations: no limitations HENMT Head: Yes normal to inspection Ears: external ears normal General nose exam: Normal external nose present Mouth: Normal oral and palatal mucosa present and oropharynx normal Throat: Yes posterior oropharynx normal Eyes General: appearance normal, both eyes and all related structures Neck Neck: Yes normal visual inspection Chest Chest palpation & inspection: normal inspection of the chest Resp Auscultation: clear to auscultation bilaterally Cardio Jugular venous distension: no JVD Rate: regular rate Rhythm: regular rhythm Heart sounds: S1 normal heart sound present and S2 normal heart sound present GI Inspection: Yes normal to inspection Palpation (GI): Soft to palpation, nontender and No hepatosplenomegaly present Auscultation: normal bowel sounds General: Yes no CVA tenderness Back/Spine/Pelvis Back: no CVA tenderness Skin General skin exam: no rashes or lesions noted Neuro General: oriented to person and patient oriented x3 Cranial nerves: Yes CN's II-XII intact bilaterally Motor exam (neuro): 5/5 motor strength present throughout Sensory Exam: No Sensory deficit (Neuro) Extrem Other: left elbow with olecranon swelling and slight redness Psych Appearance: grossly normal Course Reevaluation(s) Reevaluation #1: Patient wtih bursitis will dc on nsaids Time: 08:16 Medications Administered Discontinued Medications Generic Name Dose Route Start Last Admin Trade Name Freq PRN Reason Stop Dose Admin Ketorolac Tromethamine 60 mg 03/02/24 08:18 03/02/24 08:38 Ketorolac Tromethamine 60 Mg/2 Ml Vial IM 03/02/24 08:19 Not Given ONCE ONE Medical Decision Making Differential Diagnosis Differential Diagnoses: The differential diagnosis associated with the presentation includes (cellulitis, septic joint, olecranon bursitis) Tests considered The following testing was considered but not selected: xray of elbow considered but there was no trauma Prescription Management I considered prescription management with: Antibiotic (exam consistent with bursitis, abx not given) Social Determinants Patient?s care significantly limited by Social Determinants of Health including: Low income and Alcoholism and drug addiction in family Discharge Plan Discharge Clinical Impression: Bursitis, olecranon Patient Disposition: Home, Self-Care Instructions: Elbow Bursitis (ED) Prescriptions: New naproxen [Naprosyn] 500 mg tablet 500 mg PO BID Qty: 20 0RF No Action budesonide-formoterol [Symbicort] 160-4.5 mcg/actuation HFA aerosol inhaler 2 puff inhalation BID 30 Days Qty: 10.2 11RF Advair HFA 115-21 mcg/actuation HFA aerosol inhaler 2 puff inhalation Q12H 30 Days Qty: 12 11RF meloxicam 15 mg tablet 15 mg PO DAILY Qty: 14 0RF omeprazole 20 mg capsule,delayed release(DR/EC) 20 mg PO DAILY Qty: 90 1RF diphenhydramine HCl [Benadryl Allergy] 25 mg tablet 25 mg PO TID PRN (Reason: itching) Qty: 14 0RF ibuprofen 600 mg tablet 600 mg PO TID PRN (Reason: pain) Qty: 20 0RF thiamine HCl (vitamin B1) 100 mg tablet 100 mg PO DAILY 30 Days Qty: 30 12RF colchicine 0.6 mg tablet 0.6 mg PO DAILY 30 Days Qty: 30 5RF trazodone 50 mg tablet 50 mg PO BEDTIME PRN (Reason: insomnia) 30 Days Qty: 30 3RF albuterol sulfate 2.5 mg/0.5 mL solution for nebulization 2.5 mg continuous nebulization QID PRN (Reason: shortness of breath or wheezing) 30 Days Qty: 120 3RF Rx Instructions: 4 times a day as needed meclizine 25 mg tablet 25 mg PO TID PRN (Reason: dizziness) Qty: 30 1RF atorvastatin 10 mg tablet 10 mg PO DAILY 90 Days Qty: 90 1RF fluticasone furoate-vilanterol [Breo Ellipta] 200-25 mcg/dose blister with device 1 inh inhalation DAILY 30 Days Qty: 60 11RF fenofibrate 160 mg tablet 160 mg PO DAILY 90 Days Qty: 90 1RF montelukast 10 mg tablet 10 mg PO DAILY 90 Days Qty: 90 3RF cholecalciferol (vitamin D3) 50 mcg (2,000 unit) capsule 50 mcg PO DAILY 90 Days Qty: 90 3RF acetaminophen 325 mg capsule 650 mg PO Q4H PRN (Reason: fever or pain) Qty: 20 0RF cetirizine [Zyrtec] 10 mg tablet 10 mg PO DAILY PRN (Reason: allergy symptoms) Qty: 30 8RF albuterol sulfate 90 mcg/actuation HFA aerosol inhaler 2 puff PO Q6-8H PRN (Reason: shortness of breath or wheezing) 30 Days Qty: 8.5 12RF ibuprofen 600 mg tablet 600 mg PO Q6-8H PRN (Reason: pain) Qty: 20 0RF Interventions: ED Discharge Assessment Last Done: 03/02/24 08:39 Discharge Date/Time: 03/02/24 08:44 Print Language: Vietnamese
[2024-03-02 07:57] VITALS: BP 126/86; PULSE 97; RESP 15; TEMP 37.4; O2SAT 95
--- NOTE | 2024-03-02 08:38 | PC.NURSE ---
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
[2024-03-02 08:39] VITALS: BP 126/86; PULSE 97; RESP 15; TEMP 37.4; O2SAT 95
== END 2024-03-02 08:44 | disposition home or self-care (01) ==
PROVIDERS: Emergency Provider Emergency Medicine; PCP Internal Medicine
DX: M70.22 Olecranon bursitis, left elbow (principal); Y93.9 Activity, unspecified
CPT/HCPCS: 99283

== ENCOUNTER 2024-03-08 14:39 | Outpatient (AMB) | payer OTHER, SELFPAY ==
--- NOTE | 2024-03-08 14:56 | MHC.OFFVIS ---
Intake Visit Reasons: OV: rt distal radius FX ORIF 12/03/23 ROM check Intake Note: Hua is a 53 year old right hand dominant male who presents today for a follow up visit and range of motion check s/p right distal radius fracture ORIF DOS: 12/03/2023 w/ Dr Morris. He states that his wrist is feeling a little better today and he has been working with OT. Grades 9 [employer] 12 Teacher Services: Grades 9 Through 12 Teacher Present (Tenzin ([id number])) Allergies ENVIRONMENTAL Allergy (Unknown, Uncoded 03/02/24 07:20) ITCHY THROAT HPI HPI OV: rt distal radius FX ORIF 12/03/23 ROM check: Details: Patient is a 53-year-old male who presents for follow-up evaluation status post right distal radius ORIF, DOS 12/03/2023. This time, patient reports that he is feeling well, and then he does feel of these helping him to get a better range of motion and relief of his pain. Patient denies any numbness or tingling in the right hand. No other acute complaints or concerns at this time. [facility] Medical History Asthma Lymphadenopathy Mixed hyperlipidemia Elevated LFTs Alcoholism GERD without esophagitis Obesity (BMI 30-39.9) Anxiety Insomnia Gout Sarcoidosis Pure hypercholesterolemia Surgical History No pertinent past surgical history Family History Father No problems noted. Mother Diabetes Social History Housing: House Alcohol intake: current Alcohol intake frequency: a few times a week Alcohol type: beer Patient Tobacco Use Status: Current everyday Tobacco user Tobacco use type: Cigarette Cigarettes Per Day: 2 e-Cigarette/Vaping Use: Never Used Second Hand Smoke Exposure: Yes service: No Current occupational status: disabled Current occupation: rt handed Cognitive needs: No Hearing needs: No Vision needs: Yes Review of Systems Const All systems reviewed & are unremarkable except as noted in HPI and below Physical Exam Extrem Other: Patient is alert, oriented, and in no acute distress. Neuro: Median, ulnar, radial nerves motor and sensory intact and sensation is normal to the tips of all digits. Vascular: Cap refill brisk Pain: No tenderness to palpation of the volar distal radius, radial styloid, ulnar styloid, DRUJ, or elsewhere in the right wrist ROM: Patient is able to make a closed fist with encouragement Patient is able to flex the right wrist to approximately 60 degrees Patient is able to extend the right wrist to approximately 45 degrees beyond neutral, otherwise limited due to stiffness Passive range of motion, particularly extension of the right wrist, also limited Skin: Well-healed incision site noted on the volar aspect of the right distal radius. No active drainage General: No ecchymosis, erythema, evidence of infection noted Psych: Appears grossly normal Affect normal Attitude cooperative Results Reviewed Results Reviewed: X-rays obtained in the office today and independently reviewed by me, Shahbaz Bernstein PA-C, demonstrate well approximated fracture of the right distal radius with orthopedic hardware in place and in satisfactory clinical alignment and evidence of interval bony healing. Assessment & Plan Assessment & Plan (1) Distal radius fracture, right: Code(s): S52.501A - Unspecified fracture of the lower end of right radius, initial encounter for closed fracture Category: Medical Plan 1. Right distal radius fracture status post ORIF DOS 12/03/2023 Patient appears to be recovering well postoperatively Patient is educated about the typical recovery course At this time, patient is informed that he only has to wear the Velcro wrist splint with high energy activities or activities where he is going to be in a crowded area Patient is also advised that he can begin progressing back to normal activities, however the patient was also educated on the importance of activity modification due to pain Patient is also recommended to continue with occupational therapy to help with his wrist and hand range of motion Patient is amenable to this plan Patient will follow-up as needed with any acute concerns Coding Level of Care Code Global (98537) Diagnoses Distal radius fracture, right S52.501A
== END 2024-03-08 15:10 | disposition home or self-care (01) ==
PROVIDERS: PCP Internal Medicine
DX: S52.501A Unspecified fracture of the lower end of right radius, initial encounter for closed fracture (principal)
CPT/HCPCS: 99212

== ENCOUNTER → 2024-03-08 14:39 | Outpatient (BNVA) | payer OTHER, SELFPAY | PROVIDERS: PCP Internal Medicine | DX: S52.501D Unspecified fracture of the lower end of right radius, subsequent encounter for closed fracture with routine healing (principal); X58.XXXD Exposure to other specified factors, subsequent encounter; Z98.890 Other specified postprocedural states | CPT/HCPCS: 99212 ==

== ENCOUNTER 2024-03-11 13:48 | Outpatient (RCR) | payer OTHER, SELFPAY ==
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
== END 2024-04-12 07:57 | disposition home or self-care (01) ==
LOC: HO.OT 13:48
PROVIDERS: PCP Internal Medicine
DX: S52.501D Unspecified fracture of the lower end of right radius, subsequent encounter for closed fracture with routine healing (principal)
CPT/HCPCS: 97110; 97140; 97166; 97535

== ENCOUNTER 2024-06-10 08:30 | Outpatient (REF) | payer OTHER, SELFPAY ==
[2024-06-10 08:43] LABS: MANUAL DIFF FLAG NO
[2024-06-10 09:09] LABS: Eosinophils Absolute Auto 0.3 X10*3/uL (0.0-0.4); Eosinophils Percent Auto 7.9 % (0-4); Hematocrit 47.9 % (42.0-52.0); Hemoglobin 16.1 g/dl (14.0-18.0); Imm Gran Abs Auto 0.01 X10*3/uL (0.00-0.03); Imm Gran Pct Auto 0.2 % (0.0-0.4); Lymphocytes Absolute Auto 1.3 X10*3/uL (1.2-4.9); Lymphocytes Percent Auto 31.3 % (20-40); Mean Corpuscular HGB Conc 33.6 g/dl (31.0-36.0); Mean Corpuscular Hemoglobin 29.9 pg (27.0-33.0); Mean Corpuscular Volume 88.9 fL (80.0-98.0); Mean Platelet Volume 10.6 fL (9.4-12.4); Monocytes Absolute Auto 0.5 X10*3/uL (0.1-1.2); Monocytes Percent Auto 11.5 % (2-11); Neutrophils Percent Auto 48.1 % (45-73); Platelet Count 105 X10*3/uL (160-400); Red Blood Count 5.39 X10*6/uL (4.60-5.80); Red Cell Distribution Width 12.7 % (11.0-16.0); White Blood Count 4.2 X10*3/uL (4.8-10.8)
[2024-06-10 09:13] LABS: Appearance Urine Clear; Color Urine Dark Yellow; Glucose Urine UA Negative (Negative); Leukocyte Esterase Urine Negative (Negative); Nitrite Urine Negative (Negative); PH 5.5 (5.0-9.0); Specific Gravity - Urine >= 1.030 (1.005-1.025); Urine Blood Negative (Negative); Urine Ketones Trace mg/dL (Negative); Urine Protein Trace mg/dL (Neg-Trace)
[2024-06-10 09:18] LABS: Estimated Average Glucose 120 mg/dL; Hemoglobin A1C 162.4324 umol/L; Hemoglobin A1c % 5.8 % (<6.0); Total Hemoglobin (HGBA1C) 4102.8892 umol/L
[2024-06-10 09:41] LABS: Creatinine Urine 339.46 mg/dL; Microalbum/Creatinine Ratio Ur 5.3 ug/mg cr (<30)
[2024-06-10 09:53] LABS: Alanine Aminotransferase 24 U/L (0-40); Albumin Level 4.2 g/dL (3.5-5.0); Alkaline Phosphatase 133 U/L (39-117); Anion Gap 14 (12-20); Aspartate Amino Transferase 57 U/L (5-37); Bilirubin Total 1.1 mg/dL (0.0-1.0); Blood Urea Nitrogen 18 mg/dL (9-16); Calcium 9.7 mg/dL (8.4-10.2); Carbon Dioxide 23 mmol/L (22-29); Chloride 106 mmol/L (96-108); Cholesterol 210 mg/dL (<200); Estimated Glomerular Filt Rate > 60; Glucose Fasting 102 mg/dL (60-99); HDL Cholesterol 45 mg/dL (>40); LDL Cholesterol Calculated 139 mg/dL (<100); Potassium 4.2 mmol/L (3.3-5.1); Sodium 139 mmol/L (135-145); Total Protein 7.9 g/dL (6.5-8.0); Triglycerides 132 mg/dL (<150); Uric Acid 6.7 mg/dL (3.4-7.0)
[2024-06-10 10:01] LABS: Prostate Specific Antigen 0.95 ng/mL (<0.05-4.0)
[2024-06-10 10:09] LABS: TSH reflex Free T4 2.53 uIU/mL (0.32-4.0)
== END 2024-06-10 08:31 | disposition home or self-care (01) ==
LOC: HO.LAB 08:30
PROVIDERS: PCP Internal Medicine; Visit Provider Internal Medicine
DX: Z00.00 Encounter for general adult medical examination without abnormal findings (principal); D64.9 Anemia, unspecified; N40.0 Benign prostatic hyperplasia without lower urinary tract symptoms; M10.9 Gout, unspecified; E78.00 Pure hypercholesterolemia, unspecified; E11.9 Type 2 diabetes mellitus without complications; R30.0 Dysuria; E55.9 Vitamin D deficiency, unspecified
CPT/HCPCS: 36415; 80053; 80061; 81003; 82043; 82306; 82570; 83036; 84153; 84443; 84550; 85025

== ENCOUNTER 2024-06-13 15:20 | Outpatient (AMB) | payer OTHER, SELFPAY ==
--- NOTE | 2024-06-13 15:25 | MHC.PC.OV ---
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 Accompanied by: Self / Same As Patient Allergies ENVIRONMENTAL Allergy (Unknown, Uncoded 06/13/24 15:49) ITCHY THROAT Medication List - Last Reconciled 06/13/24 by Doc Marrero MD acetaminophen 650 mg (2 x 325 mg) PO Q4H PRN albuterol sulfate 2.5 mg (0.5 mL) continuous nebulization QID PRN 30 days albuterol sulfate 90 mcg/actuation 2 puffs PO Q6-8H PRN 30 days atorvastatin 10 mg PO DAILY 90 days cetirizine (Zyrtec) 10 mg PO DAILY PRN cholecalciferol (vitamin D3) 50 mcg PO DAILY 90 days colchicine 0.6 mg PO DAILY 30 days diphenhydramine HCl (Benadryl Allergy) 25 mg PO TID PRN fenofibrate 160 mg PO DAILY 90 days fluticasone furoate-vilanterol 200-25 mcg/dose (Breo Ellipta) 1 inh inhalation DAILY 30 days fluticasone propion-salmeterol 115-21 mcg/actuation (Advair HFA) 2 puffs inhalation Q12H 30 days ibuprofen 600 mg PO TID PRN ibuprofen 600 mg PO Q6-8H PRN meclizine 25 mg PO TID PRN meloxicam 15 mg PO DAILY montelukast 10 mg PO DAILY 90 days naproxen (Naprosyn) 500 mg PO BID omeprazole 20 mg PO DAILY Symbicort 160-4.5 mcg/actuation (budesonide-formoterol) 2 puffs inhalation BID 30 days NS thiamine HCl (vitamin B1) 100 mg PO DAILY 30 days trazodone 50 mg PO BEDTIME PRN 30 days Tobacco use date assessed: 06/13/24 Dental Screening Dental Screen Date: 06/13/24 Did you have a dental visit in the last 12 months?: No Did you have a dental problem in the last 6 months where you did not have access to dental care?: No Was dental information given to patient?: No HPI 3 month f/u HPI Details Patient comes in today for his follow up visit - he was last seen here almost a year ago in June 2023 States that he feels okay He apparently suffered a broken right wrist back in November 2023 when he fell and required orthopedic surgery to correct his fracture States that his injury has mostly resolved/healed although he still has some mild pain in his right wrist at times He denies any headaches or dizziness Denies any chest pains, no shortness of breath No nausea /vomiting, no abdominal pain No change in bowel habits noted Needs a few of his Rx refilled, including his cholesterol medication He had his follow-up labs done a few days ago - to discuss his results [facility] Medical History Asthma Lymphadenopathy Mixed hyperlipidemia Elevated LFTs Alcoholism GERD without esophagitis Obesity (BMI 30-39.9) Anxiety Insomnia Gout Sarcoidosis Pure hypercholesterolemia Surgical History No pertinent past surgical history Family History Father No problems noted. Mother Diabetes Social History Housing: House Alcohol intake: current Alcohol intake frequency: a few times a week Alcohol type: beer Patient Tobacco Use Status: Current everyday Tobacco user Tobacco use type: Cigarette Cigarettes Per Day: 2 e-Cigarette/Vaping Use: Never Used Second Hand Smoke Exposure: Yes service: No Current occupational status: disabled Current occupation: rt handed Cognitive needs: No Hearing needs: No Vision needs: Yes Questionnaire PHQ-9 Over the last 2 weeks, how often have you been bothered by any of the following problems? 1. Little interest or pleasure in doing things: not at all 2. Feeling down, depressed, or hopeless: not at all 3. Trouble falling or staying asleep, or sleeping too much: not at all 4. Feeling tired or having little energy: not at all 5. Poor appetite or overeating: not at all 6. Feeling bad about yourself - or that you are a failure or have let yourself or your family down: not at all 7. Trouble concentrating on things, such as reading the newspaper or watching television: not at all 8. Moving or speaking so slowly that other people could have noticed. Or the opposite - being so fidgety or restless that you have been moving around a lot more than usual: not at all 9. Thoughts that you would be better off or of hurting yourself in some way: not at all Total score: 0 Depression Screening Interpretation: Negative Depression Screening Done: Yes 24311 - PHQ-9 Billing: Yes Source: Developed by Drs. Bennie Graff, Anita Aleman, Marek Mckeon and colleagues, with an educational yana from [employer]. Thrive Questionnaire Date Thrive assessed: 06/13/24 I am a: Patient What is your living situation today?: I have a steady place to live Within the past 12 months, did the food you bought not last and you didn't have the money to get more?: Never true Within the past 12 months, did you worry whether your food would run out before you got money to buy more?: Never true Do you have trouble paying for medicines?: No Do you have trouble getting transportation to medical appointments?: No Do you have trouble paying your heating and electricity bill?: No Do you have trouble taking care of your child, family member or friend?: No Do you have trouble with day-to-day activities such as bathing, preparing meals, shopping, managing finances, etc.?: No Are you currently unemployed and looking for a job?: No Are you interested in more education?: No Please select the resources that you would like help with: None Currently or been in a relationship where the following occur: No concerns reported THRIVE Score: 0 AUDIT C Alcohol Use Questionnaire (AUDIT-C) 1. How often do you have a drink containing alcohol?: Monthly or less 2. How many drinks containing alcohol do you have on a typical day when you are drinking?: 3 or 4 3. How often do you have six or more drinks on one occasion?: Daily or almost daily Total Score: 6 Score Reviewed/Action Taken: Yes BARON-7 AMB Questionnaire BARON-7 Date BARON - 7 assessed: 06/13/24 Feeling nervous, anxious, or on edge: 0 = Not at all Not being able to stop or control worryin = Not at all Worrying too much about different things: 0 = Not at all Trouble relaxin = Not at all Being so restless that it is hard to sit still: 0 = Not at all Becoming easily annoyed or irritable: 0 = Not at all Feeling afraid as if something awful might happen: 0 = Not at all Total BARON-7 score (0-4 normal; 5-9 mild; 10-14 moderate; 15-21 severe): 0 Source: Developed by Drs. Bennie Graff, Anita Aleman, Marek Mckeon and colleagues, with an educational yana from [employer]. Review of Systems Const Denies chills, Denies fatigue, Denies fever(s) and Denies headache(s) ENT Denies dysphagia, Denies dizziness, Denies otalgia, Denies headache(s), Denies neck pain, Denies odynophagia and Denies sore throat Card Denies chest pain, Denies palpitations and Denies dyspnea Resp Denies chest congestion, Denies cough and Denies dyspnea GI Denies abdominal pain, Denies constipation, Denies dysphagia, Denies heartburn, Denies diarrhea, Denies nausea, Denies odynophagia and Denies vomiting Denies difficulty urinating, Denies dysuria, Denies nocturia and Denies urinary frequency Musc Denies back pain, Reports arthralgias (on and off but mostly mild, in the right wrist) and Denies neck pain Skin/Breast Denies rash Neuro Denies dizziness and Denies headache(s) Endo Denies fatigue and Denies palpitations Physical exam (Primary Care) Vital Signs: Last Vital Signs Pulse 94 06/13/24 15:26 BP 136/88 06/13/24 15:26 Pulse Ox 96 06/13/24 15:26 Oxygen Delivery Method Room Air 06/13/24 15:26 BMI result Body Mass Index 31.7 Tobacco/Smoking Status: Tobacco use Status Tobacco use date assessed 06/13/24 06/13/24 15:30 Patient Tobacco Use Status Current everyday Tobacco 06/13/24 15:30 Tobacco use type Cigarette 06/13/24 15:30 e-Cigarette/Vaping Use Never Used 06/13/24 15:30 PHQ-9: PHQ-9 Score PHQ-9: Total score 0 06/13/24 16:08 Depression Screening Interpretation: Negative Thrive Assessment: Date of Thrive Assessment Date Thrive assessed 06/13/24 06/13/24 15:30 Currently or been in a relationship where the following occur: No concerns reported Const General: no acute distress and alert HENMT Ears: TM's normal bilaterally and EAC's normal Throat: Yes posterior oropharynx normal and Yes tonsils normal (no TP congestion) Neck Neck: Yes supple and No lymphadenopathy Thyroid: Thyroid normal Resp Auscultation: clear to auscultation bilaterally, no rales and no wheezes Cardio Rate: regular rate Rhythm: regular rhythm Heart sounds: no murmurs GI Palpation (GI): Soft to palpation and nontender Auscultation: normal bowel sounds General: Yes no CVA tenderness Back/Spine/Pelvis Back: no CVA tenderness Thoracic/Lumbar Spine: No lumbar spinal tenderness Skin Rashes: no rashes Extrem General: Yes no clubbing, cyanosis or edema Right upper extremity: full ROM and wrist Details: tenderness (mild); no swelling Results Reviewed Results Reviewed: Laboratory Tests 06/10/24 06/10/24 08:36 08:42 WBC 4.2 L Hgb 16.1 Hct 47.9 Plt Count 105 L Sodium 139 Potassium 4.2 Creatinine 0.86 Estimated GFR > 60 Fasting Glucose 102 H Hemoglobin A1c % 5.8 Uric Acid 6.7 Calcium 9.7 AST 57 H ALT 24 Triglycerides 132 Cholesterol 210 H LDL Cholesterol, Calc 139 H HDL Cholesterol 45 Prostate Specific Ag 0.95 25-OH Vitamin D Total 8.0 L TSH 2.53 Ur Specific [place] >= 1.030 H Urine Protein Trace Urine Glucose (UA) Negative Urine Blood Negative Urine Nitrite Negative Ur Leukocyte Esterase Negative Microalb/Creat Ratio 5.3 Coding Level of Care Code Est Pt Level 4 (51071) Diagnoses Mixed hyperlipidemia E78.2 Elevated LFTs R79.89 Moderate persistent asthma with acute exacerbation J45.41 Asthma severity: moderate Asthma persistence: persistent Asthma complication type: with acute exacerbation Impaired fasting glucose R73.01 Sarcoidosis D86.9 Sarcoidosis of skin D86.3 Closed fracture of distal end of right radius, unspecified fracture morphology, sequela S52.501S Encounter type: sequela Fracture type: closed Fracture morphology: unspecified fracture morphology Idiopathic gout, unspecified chronicity, unspecified site M10.00 Gout site: unspecified site Gout etiology: idiopathic Chronicity: unspecified GERD without esophagitis K21.9 Alcoholism F10.20 Insomnia, unspecified type G47.00 Insomnia type: unspecified Obesity (BMI 30-39.9) E66.9 Additional Codes PHQ-9 - 11731 - PHQ-9 Billing: Yes ([id number]) Assessment & Plan Assessment & Plan (1) Mixed hyperlipidemia: Code(s): E78.2 - Mixed hyperlipidemia Category: Medical Plan: Results of his labs done a few days ago reviewed and discussed with patient - his cholesterol levels have improved slightly from previous Reinforced low cholesterol diet Continue Atorvastatin 10 mg QD and Fenofibrate 160 mg QD Will recheck his labs and fasting lipids in 3 months for follow-up (2) Elevated LFTs: Code(s): R79.89 - Other specified abnormal findings of blood chemistry Category: Medical Plan: His serum AST is still elevated but ALT is normal on his recent labs - is most likely related to his weight as well as his alcohol intake Will continue to monitor his LFTs regularly (3) Asthma: Code(s): J45.909 - Unspecified asthma, uncomplicated Category: Medical Qualifiers: Asthma severity: moderate Asthma persistence: persistent Asthma complication type: with acute exacerbation Qualified Code(s): J45.41 - Moderate persistent asthma with (acute) exacerbation Plan: Continue Breo Ellipta 200-25 mcg 1 inhalation QD, Montelukast 10 mg QD and Albuterol HFA 2 puffs 4 times a day as needed or Albuterol sulfate solution via nebulizer every 6 hours as needed Follow up with pulmonary as scheduled (4) Impaired fasting glucose: Code(s): R73.01 - Impaired fasting glucose Category: Medical Plan: His FBS was slightly elevated at 102 mg/dL on his recent labs but his HgbA1c was normal at 5.8% Reinforced low calorie/low carb diet; exercise as tolerated (5) Sarcoidosis: Code(s): D86.9 - Sarcoidosis, unspecified Category: Medical Plan: Stable Chest x-rays done on 10/26/2020 revealed (+) right paratracheal and bilateral hilar prominence similar to the prior study on 03/14/2019. Chest CT done on 02/02/2014 showed (+) lymphadenopathy consistent with history of sarcoidosis His most recent chest CT done on 07/21/2022 revealed (+) Bilateral hilar and mediastinal lymphadenopathy similar to January [address] Multiple small pulmonary nodules the majority of which are stable. There is question of a new 2 mm peripheral left lower lobe nodule. Previously identified semisolid left lower lobe nodule which was the largest nodule January 2014 is no longer seen. Question mild central bronchovascular changes in both upper and right middle lobes - findings are all consistent with his diagnosis of sarcoidosis Follow up with pulmonary as scheduled (6) Sarcoidosis of skin: Code(s): D86.3 - Sarcoidosis of skin Category: Medical Plan: His lesions are predominantly on the left lower leg - most likely cutaneous sarcoid Follow up with dermatology as scheduled (7) Distal radius fracture, right: Code(s): S52.501A - Unspecified fracture of the lower end of right radius, initial encounter for closed fracture Category: Medical Qualifiers: Encounter type: sequela Fracture type: closed Fracture morphology: unspecified fracture morphology Qualified Code(s): S52.501S - Unspecified fracture of the lower end of right radius, sequela Plan: S/P surgical repair of his right wrist on 12/03/2023 He has mostly recovered from his injury although he reports that he is still experiencing some pain in his right wrist at times Follow up with orthopedics as scheduled (8) Gout: Code(s): M10.9 - Gout, unspecified Category: Medical Qualifiers: Gout site: unspecified site Gout etiology: idiopathic Chronicity: unspecified Qualified Code(s): M10.00 - Idiopathic gout, unspecified site Plan: He has not had any flare ups of his gout lately; his serum uric acid level was normal at 6.7 on his recent labs Reinforced low purine diet Continue Colchicine 0.6 mg QD (9) GERD without esophagitis: Code(s): K21.9 - Gastro-esophageal reflux disease without esophagitis Category: Medical Plan: Dietary restrictions reinforced Continue Omeprazole 20 mg QD PRN He is advised that if his symptoms persist despite Rx, then he will need to see gastroenterology for consideration for EGD (10) Alcoholism: Code(s): F10.20 - Alcohol dependence, uncomplicated Category: Medical Plan: Patient is counseled again on drinking and advised to continue abstinence Continue Thiamine (B1) 100 mg QD and Pyridoxine (B6) 100 mg QD (11) Insomnia: Code(s): G47.00 - Insomnia, unspecified Category: Medical Qualifiers: Insomnia type: unspecified Qualified Code(s): G47.00 - Insomnia, unspecified Plan: Sleep hygiene reinforced Continue Trazodone 50 mg Q HS (12) Obesity (BMI 30-39.9): Code(s): E66.9 - Obesity, unspecified Category: Medical Plan: Reinforced diet/exercise as tolerated/lose weight Plan Follow up in 3 months Orders: Orders Complete Blood Count Auto Diff 3 Months D64.9 - Anemia, unspecified Comprehensive [place]. Panel Fast 3 Months E78.00 - Pure hypercholesterolemia, unspecified Lipid Panel 3 Months E78.00 - Pure hypercholesterolemia, unspecified Medications: Refilled albuterol sulfate 90 mcg/actuation 2 puffs PO Q6-8H 30 days PRN 8.5 grams 12RF shortness of breath or wheezing J45.41 - Moderate persistent asthma with (acute) exacerbation atorvastatin 10 mg PO DAILY 90 days 90 tabs 1RF E78.00 - Pure hypercholesterolemia, unspecified fenofibrate 160 mg PO DAILY 90 days 90 tabs 1RF Symbicort 160-4.5 mcg/actuation (budesonide-formoterol) 2 puffs inhalation BID 30 days 10.2 grams 11RF NS J44.9 - Chronic obstructive pulmonary disease, unspecified
[2024-06-13 15:26] VITALS: BP 136/88; PULSE 94; O2SAT 96; BMI 31.7
== END 2024-06-13 16:01 | disposition home or self-care (01) ==
PROVIDERS: PCP Internal Medicine; Visit Provider Internal Medicine
DX: E78.2 Mixed hyperlipidemia (principal); R79.89 Other specified abnormal findings of blood chemistry; D86.3 Sarcoidosis of skin; F10.20 Alcohol dependence, uncomplicated; J45.41 Moderate persistent asthma with (acute) exacerbation; R73.01 Impaired fasting glucose; S52.501S Unspecified fracture of the lower end of right radius, sequela; M10.00 Idiopathic gout, unspecified site; K21.9 Gastro-esophageal reflux disease without esophagitis; G47.00 Insomnia, unspecified; E66.9 Obesity, unspecified

== ENCOUNTER → 2024-06-13 15:20 | Outpatient (BNVA) | payer OTHER, SELFPAY | PROVIDERS: PCP Internal Medicine; Visit Provider Internal Medicine | DX: E78.2 Mixed hyperlipidemia (principal); R79.89 Other specified abnormal findings of blood chemistry; J45.41 Moderate persistent asthma with (acute) exacerbation; R73.01 Impaired fasting glucose; D86.9 Sarcoidosis, unspecified; D89.3 Immune reconstitution syndrome; S52.501S Unspecified fracture of the lower end of right radius, sequela; K21.9 Gastro-esophageal reflux disease without esophagitis; F10.20 Alcohol dependence, uncomplicated; G47.00 Insomnia, unspecified; E66.9 Obesity, unspecified; Z68.31 Body mass index [BMI] 31.0-31.9, adult; Z71.3 Dietary counseling and surveillance | CPT/HCPCS: 96127; 99212 ==

== ENCOUNTER 2024-08-22 22:38 | Emergency (ER) | payer OTHER, SELFPAY ==
[2024-08-22 22:45] VITALS: BP 118/72; PULSE 96; O2SAT 97
[2024-08-22 22:47] VITALS: BMI 18.6
--- NOTE | 2024-08-22 22:52 | PC.NURSE ---
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
[2024-08-22 23:23] LABS: MANUAL DIFF FLAG NO
[2024-08-22 23:26] LABS: Basophils Absolute Auto 0.1 X10*3/uL (0.0-0.2); Basophils Percent Auto 0.8 % (0-2); Eosinophils Absolute Auto 0.3 X10*3/uL (0.0-0.4); Eosinophils Percent Auto 5.6 % (0-4); Hematocrit 44.5 % (42.0-52.0); Hemoglobin 15.3 g/dl (14.0-18.0); Imm Gran Abs Auto 0.02 X10*3/uL (0.00-0.03); Imm Gran Pct Auto 0.3 % (0.0-0.4); Lymphocytes Absolute Auto 2.3 X10*3/uL (1.2-4.9); Lymphocytes Percent Auto 38.2 % (20-40); Mean Corpuscular HGB Conc 34.4 g/dl (31.0-36.0); Mean Corpuscular Hemoglobin 30.3 pg (27.0-33.0); Mean Corpuscular Volume 88.1 fL (80.0-98.0); Mean Platelet Volume 9.9 fL (9.4-12.4); Monocytes Absolute Auto 0.5 X10*3/uL (0.1-1.2); Monocytes Percent Auto 9.1 % (2-11); Neutrophils Absolute Auto 2.7 x10*3/uL (2.0-8.3); Platelet Count 127 X10*3/uL (160-400); Red Blood Count 5.05 X10*6/uL (4.60-5.80); Red Cell Distribution Width 13.7 % (11.0-16.0); White Blood Count 5.9 X10*3/uL (4.8-10.8)
[2024-08-22 23:35] LABS: Ethanol 297 mg/dL
[2024-08-22 23:36] LABS: Anion Gap 15 (12-20); Blood Urea Nitrogen 10 mg/dL (9-16); Calcium 9.1 mg/dL (8.4-10.2); Carbon Dioxide 21 mmol/L (22-29); Chloride 106 mmol/L (96-108); Estimated Glomerular Filt Rate > 60; Glucose Random 122 mg/dL (60-115); Potassium 3.5 mmol/L (3.3-5.1); Sodium 138 mmol/L (135-145)
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
[2024-08-22 23:43] LABS: Salicylate < 5.0 mg/dL (15-30)
--- NOTE | 2024-08-23 | PC.NURSE ---
assumed care for pt at this time. pt a&ox3 speakin gin full clear sentences. Pt is tearful and regretful of decisions that brought him here today. Pt currently denying SI and wants help with detox. Accompanied pt to restroom, used indepently. Collected urine specimen and sent. Pt is calm and cooperative in stretcher at this time. 1:[address]
[2024-08-23 00:03] LABS: Appearance Urine Clear; Color Urine Yellow; Glucose Urine UA Negative (Negative); Leukocyte Esterase Urine Negative (Negative); Nitrite Urine Negative (Negative); Specific Gravity - Urine <= 1.005 (1.005-1.025); Urine Blood Negative (Negative); Urine Ketones Negative (Negative); Urine Protein Negative (Neg-Trace)
[2024-08-23 00:16] LABS: Amphetamine Screen Urine Not Detected (Not Detect); Barbiturates, Urine Not Detected (Not Detect); Benzodiazepines Screen Urine Not Detected (Not Detect); Buprenorphine Scr Not Detected (Not Detect); Cannabinoid Screen Urine Not Detected (Not Detect); Cocaine Screen Urine POSITIVE (Not Detect); Fentanyl, urine Not Detected (Not Detect); Methadone Screen, Urine Not Detected (Not Detect); Opiate Screen Urine Not Detected (Not Detect); Oxycodone Screen Urine Not Detected (Not Detect); Phencyclidine Screen Urine Not Detected (Not Detect)
[2024-08-23 03:34] VITALS: BP 138/81; PULSE 97; RESP 16; TEMP 36.8; O2SAT 98
[2024-08-23 06:09] VITALS: BP 105/60; PULSE 89; RESP 16; TEMP 36.4; O2SAT 96
[2024-08-23 09:28] VITALS: BP 129/78; PULSE 87; RESP 14; TEMP 36.9; O2SAT 96
--- NOTE | 2024-08-23 10:15 | PC.NURSE ---
This Rn assumed care of patient @ 0700. Patient calm and cooperative. Patient currently speaking with care team at this time. Plan of care on going.
--- NOTE | 2024-08-23 11:13 | MHC.CARE ---
Patient evaluated by the CARE Team, he does not require an inpatient psychiatric admission at this time. ED provider Dr. Cordova updated.
[2024-08-23 11:27] VITALS: BP 137/80; PULSE 92; RESP 14; TEMP 36.7; O2SAT 97
[2024-08-23 11:31] VITALS: BP 137/80; PULSE 92; RESP 14; TEMP 36.7; O2SAT 97
--- NOTE | 2024-08-23 12:12 | MHC.RECOVRN ---
Met with pt in 17H following request for resources received from Care Team. Received assist from bacon skinner Filipe HERNANDEZ and pt's at bedside. Pt reports he is drinking regularly at amounts that are to much . Guarded about offering specifics on amount and frequency. Discussed different treatment options. Pt not interested in inpt. treatment. Gave him information on outpatient as well as [facility] providers. Pt and will F/U with clinic for [facility] and will reach out with questions or need for further resources arises. Pt has been cleared by CARE team and will be D/C home.
--- NOTE | 2024-08-23 14:27 | MHC.CARE ---
Patient was seen today by the CARE TEAM and referred to [facility]. Referral has been emailed to [facility].
== END 2024-08-23 11:35 | disposition home or self-care (01) ==
PROVIDERS: Emergency Medicine; Emergency Provider Emergency Medicine
DX: F33.1 Major depressive disorder, recurrent, moderate (principal); R45.851 Suicidal ideations; F10.10 Alcohol abuse, uncomplicated; Z51.81 Encounter for therapeutic drug level monitoring; Z79.899 Other long term (current) drug therapy; Y90.8 Blood alcohol level of 240 mg/100 ml or more
CPT/HCPCS: 36415; 80048; 80179; 80307; 81003; 85025; 99284; 99285; S9485

== ENCOUNTER 2024-09-13 06:06 | Outpatient (REF) | payer OTHER, SELFPAY ==
[2024-09-13 06:23] LABS: MANUAL DIFF FLAG NO
[2024-09-13 07:11] LABS: Basophils Percent Auto 0.8 % (0-2); Eosinophils Absolute Auto 0.3 X10*3/uL (0.0-0.4); Hemoglobin 15.9 g/dl (14.0-18.0); Imm Gran Abs Auto 0.01 X10*3/uL (0.00-0.03); Imm Gran Pct Auto 0.3 % (0.0-0.4); Lymphocytes Absolute Auto 1.2 X10*3/uL (1.2-4.9); Lymphocytes Percent Auto 31.1 % (20-40); Mean Corpuscular HGB Conc 33.8 g/dl (31.0-36.0); Mean Corpuscular Hemoglobin 30.6 pg (27.0-33.0); Mean Corpuscular Volume 90.6 fL (80.0-98.0); Monocytes Absolute Auto 0.5 X10*3/uL (0.1-1.2); Monocytes Percent Auto 12.7 % (2-11); Neutrophils Absolute Auto 1.9 x10*3/uL (2.0-8.3); Neutrophils Percent Auto 48.1 % (45-73); Red Blood Count 5.19 X10*6/uL (4.60-5.80); Red Cell Distribution Width 13.6 % (11.0-16.0); White Blood Count 3.9 X10*3/uL (4.8-10.8)
[2024-09-13 07:12] LABS: Platelet Count 91 X10*3/uL (160-400)
[2024-09-13 07:36] LABS: Alanine Aminotransferase 28 U/L (0-40); Albumin Level 4.1 g/dL (3.5-5.0); Alkaline Phosphatase 131 U/L (39-117); Anion Gap 11 (12-20); Aspartate Amino Transferase 60 U/L (5-37); Bilirubin Total 1.7 mg/dL (0.0-1.0); Blood Urea Nitrogen 14 mg/dL (9-16); Calcium 9.5 mg/dL (8.4-10.2); Carbon Dioxide 28 mmol/L (22-29); Chloride 105 mmol/L (96-108); Cholesterol 201 mg/dL (<200); Estimated Glomerular Filt Rate > 60; Glucose Fasting 105 mg/dL (60-99); HDL Cholesterol 40 mg/dL (>40); LDL Cholesterol Calculated 139 mg/dL (<100); Potassium 4.2 mmol/L (3.3-5.1); Sodium 140 mmol/L (135-145); Total Protein 7.5 g/dL (6.5-8.0); Triglycerides 112 mg/dL (<150)
== END 2024-09-13 06:07 | disposition home or self-care (01) ==
LOC: HO.LAB 06:06
PROVIDERS: PCP Internal Medicine; Visit Provider Internal Medicine
DX: E78.2 Mixed hyperlipidemia (principal); R79.89 Other specified abnormal findings of blood chemistry; J45.41 Moderate persistent asthma with (acute) exacerbation; R73.01 Impaired fasting glucose; D86.3 Sarcoidosis of skin; M10.00 Idiopathic gout, unspecified site; K21.9 Gastro-esophageal reflux disease without esophagitis; F10.20 Alcohol dependence, uncomplicated; G47.00 Insomnia, unspecified; E66.9 Obesity, unspecified; Z68.30 Body mass index [BMI] 30.0-30.9, adult; D64.9 Anemia, unspecified; Z79.899 Other long term (current) drug therapy
CPT/HCPCS: 36415; 80053; 80061; 85025; 96127; 99212

== ENCOUNTER 2024-09-13 15:27 | Outpatient (AMB) | payer OTHER, SELFPAY ==
--- NOTE | 2024-09-13 15:30 | A.OFFPC_ITS ---
Vital Signs 09/13/24 15:32 Height 5 ft 3 in Weight 173 lb BMI 30.6 BP 124/86 Blood Pressure Location Lt brachial Position Sitting Pulse 92 Pulse Source Pulse Oximeter Pulse Oximetry (%) 96 Oxygen Delivery Method Room Air Intake Visit Reasons: 3 month follow up [employer] Administrator Required: No Accompanied by: Self / Same As Patient Allergies ENVIRONMENTAL Allergy (Unknown, Uncoded 09/13/24 15:52) ITCHY THROAT Medication List - Last Reconciled 09/13/24 by Doc Marrero MD acetaminophen 650 mg (2 x 325 mg) PO Q4H PRN albuterol sulfate 2.5 mg (0.5 mL) continuous nebulization QID PRN 30 days albuterol sulfate 90 mcg/actuation 2 puffs PO Q6-8H PRN 30 days atorvastatin 10 mg PO DAILY 90 days cetirizine (Zyrtec) 10 mg PO DAILY PRN cholecalciferol (vitamin D3) 50 mcg PO DAILY 90 days colchicine 0.6 mg PO DAILY 30 days diphenhydramine HCl (Benadryl Allergy) 25 mg PO TID PRN fenofibrate 160 mg PO DAILY 90 days fluticasone furoate-vilanterol 200-25 mcg/dose (Breo Ellipta) 1 inh inhalation DAILY 30 days fluticasone propion-salmeterol 115-21 mcg/actuation (Advair HFA) 2 puffs inhalation Q12H 30 days ibuprofen 600 mg PO TID PRN ibuprofen 600 mg PO Q6-8H PRN meclizine 25 mg PO TID PRN meloxicam 15 mg PO DAILY montelukast 10 mg PO DAILY 90 days naproxen (Naprosyn) 500 mg PO BID omeprazole 20 mg PO DAILY Symbicort 160-4.5 mcg/actuation (budesonide-formoterol) 2 puffs inhalation BID 30 days NS thiamine HCl (vitamin B1) 100 mg PO DAILY 30 days trazodone 50 mg PO BEDTIME PRN 30 days Tobacco use date assessed: 09/13/24 Dental Screening Dental Screen Date: 09/13/24 Did you have a dental visit in the last 12 months?: No Did you have a dental problem in the last 6 months where you did not have access to dental care?: No Was dental information given to patient?: No HPI 3 month follow up HPI Details Patient comes in today for his follow up visit States that he feels okay He denies any headaches or dizziness Denies any chest pains, no shortness of breath No nausea /vomiting, no abdominal pain No change in bowel habits noted Needs his Trazodone Rx refilled He had his follow-up labs done earlier this morning - to discuss his results [facility] Medical History (Updated 09/13/24 @ 16:06 by Doc Marrero MD) Hyperbilirubinemia Asthma Lymphadenopathy Mixed hyperlipidemia Elevated LFTs Alcoholism GERD without esophagitis Obesity (BMI 30-39.9) Anxiety Insomnia Gout Sarcoidosis Pure hypercholesterolemia Surgical History No pertinent past surgical history Family History Father No problems noted. Mother Diabetes Social History Housing: House Alcohol intake: current Alcohol intake frequency: a few times a week Alcohol type: beer Patient Tobacco Use Status: Current everyday Tobacco user Tobacco use type: Cigarette Cigarettes Per Day: 2 e-Cigarette/Vaping Use: Never Used Second Hand Smoke Exposure: Yes Substance Use Type: Former Substance User service: No Current occupational status: disabled Current occupation: rt handed Cognitive needs: No Hearing needs: No Vision needs: Yes Questionnaire PHQ-9 Over the last 2 weeks, how often have you been bothered by any of the following problems? 1. Little interest or pleasure in doing things: not at all 2. Feeling down, depressed, or hopeless: not at all 3. Trouble falling or staying asleep, or sleeping too much: not at all 4. Feeling tired or having little energy: not at all 5. Poor appetite or overeating: not at all 6. Feeling bad about yourself - or that you are a failure or have let yourself or your family down: not at all 7. Trouble concentrating on things, such as reading the newspaper or watching television: not at all 8. Moving or speaking so slowly that other people could have noticed. Or the opposite - being so fidgety or restless that you have been moving around a lot more than usual: not at all 9. Thoughts that you would be better off or of hurting yourself in some way: not at all Total score: 0 Depression Screening Interpretation: Negative Depression Screening Done: Yes 57946 - PHQ-9 Billing: Yes Source: Developed by Drs. Bennie Graff, Anita Aleman, Marek Mckeon and colleagues, with an educational yana from [employer]. Thrive Questionnaire Date Thrive assessed: 09/13/24 I am a: Patient What is your living situation today?: I choose not to answer this question Within the past 12 months, did the food you bought not last and you didn't have the money to get more?: I choose not to answer this question Within the past 12 months, did you worry whether your food would run out before you got money to buy more?: I choose not to answer this question Do you have trouble paying for medicines?: I choose not to answer this question Do you have trouble getting transportation to medical appointments?: I choose not to answer this question Do you have trouble paying your heating and electricity bill?: I choose not to answer this question Do you have trouble taking care of your child, family member or friend?: I choose not to answer this question Do you have trouble with day-to-day activities such as bathing, preparing meals, shopping, managing finances, etc.?: I choose not to answer this question Are you currently unemployed and looking for a job?: I choose not to answer this question Are you interested in more education?: I choose not to answer this question Please select the resources that you would like help with: None Currently or been in a relationship where the following occur: I choose not to answer THRIVE Score: 0 AUDIT C Alcohol Use Questionnaire (AUDIT-C) 1. How often do you have a drink containing alcohol?: Never 3. How often do you have six or more drinks on one occasion?: Never Total Score: 0 Score Reviewed/Action Taken: Yes BARON-7 AMB Questionnaire BARON-7 Date BARON - 7 assessed: 09/13/24 Feeling nervous, anxious, or on edge: 0 = Not at all Not being able to stop or control worryin = Not at all Worrying too much about different things: 0 = Not at all Trouble relaxin = Not at all Being so restless that it is hard to sit still: 0 = Not at all Becoming easily annoyed or irritable: 0 = Not at all Feeling afraid as if something awful might happen: 0 = Not at all Total BARON-7 score (0-4 normal; 5-9 mild; 10-14 moderate; 15-21 severe): 0 Source: Developed by Drs. Bennie Graff, Anita Aleman, Marek Mckeon and colleagues, with an educational yana from [employer]. Review of Systems Const Denies chills, Denies fatigue, Denies fever(s) and Denies headache(s) ENT Denies dysphagia, Denies dizziness, Denies otalgia, Denies headache(s), Denies neck pain, Denies odynophagia and Denies sore throat Card Denies chest pain, Denies palpitations and Denies dyspnea Resp Denies chest congestion, Denies cough and Denies dyspnea GI Denies abdominal pain, Denies constipation, Denies dysphagia, Denies heartburn, Denies diarrhea, Denies nausea, Denies odynophagia and Denies vomiting Denies difficulty urinating, Denies dysuria, Denies nocturia and Denies urinary frequency Musc Denies back pain, Reports arthralgias (on and off - affecting multiple joints) and Denies neck pain Skin/Breast Denies rash Neuro Denies dizziness and Denies headache(s) Endo Denies fatigue and Denies palpitations Physical exam (Primary Care) Vital Signs: Last Vital Signs Pulse 92 09/13/24 15:32 BP 124/86 09/13/24 15:32 Pulse Ox 96 09/13/24 15:32 Oxygen Delivery Method Room Air 09/13/24 15:32 BMI result Body Mass Index 30.6 Tobacco/Smoking Status: Tobacco use Status Tobacco use date assessed 09/13/24 09/13/24 15:38 Patient Tobacco Use Status Current everyday Tobacco 09/13/24 15:38 Tobacco use type Cigarette 09/13/24 15:38 e-Cigarette/Vaping Use Never Used 09/13/24 15:38 PHQ-9: PHQ-9 Score PHQ-9: Total score 0 09/13/24 15:56 Depression Screening Interpretation: Negative Thrive Assessment: Date of Thrive Assessment Date Thrive assessed 09/13/24 09/13/24 15:38 Currently or been in a relationship where the following occur: I choose not to answer Const General: no acute distress and alert HENMT Ears: TM's normal bilaterally and EAC's normal Throat: Yes posterior oropharynx normal and Yes tonsils normal (no TP congestion) Neck Neck: Yes supple and No lymphadenopathy Thyroid: Thyroid normal Resp Auscultation: clear to auscultation bilaterally, no rales and no wheezes Cardio Rate: regular rate Rhythm: regular rhythm Heart sounds: no murmurs GI Palpation (GI): Soft to palpation and nontender Auscultation: normal bowel sounds General: Yes no CVA tenderness Back/Spine/Pelvis Back: no CVA tenderness Thoracic/Lumbar Spine: No lumbar spinal tenderness Skin Rashes: no rashes Extrem General: Yes no clubbing, cyanosis or edema Results Reviewed Results Reviewed: Laboratory Tests 06/10/24 09/13/24 08:42 06:22 WBC 3.9 L Hgb 15.9 Hct 47.0 Plt Count 91 L D Sodium 140 Potassium 4.2 Creatinine 0.90 Estimated GFR > 60 Fasting Glucose 105 H Hemoglobin A1c % 5.8 Calcium 9.5 Total Bilirubin 1.7 H AST 60 H ALT 28 Alkaline Phosphatase 131 H Triglycerides 132 112 Cholesterol 210 H 201 H LDL Cholesterol, Calc 139 H 139 H HDL Cholesterol 45 40 L Coding Level of Care Code Est Pt Level 4 (22718) Complex EM visit Add On G2211 Diagnoses Mixed hyperlipidemia E78.2 Elevated LFTs R79.89 Moderate persistent asthma with acute exacerbation J45.41 Asthma complication type: with acute exacerbation Asthma persistence: persistent Asthma severity: moderate Impaired fasting glucose R73.01 Sarcoidosis D86.9 Sarcoidosis of skin D86.3 Idiopathic gout, unspecified chronicity, unspecified site M10.00 Chronicity: unspecified Gout etiology: idiopathic Gout site: unspecified site GERD without esophagitis K21.9 Alcoholism F10.20 Insomnia, unspecified type G47.00 Insomnia type: unspecified Obesity (BMI 30-39.9) E66.9 Additional Codes PHQ-9 - 02369 - PHQ-9 Billing: Yes ([id number]) Assessment & Plan Assessment & Plan (1) Mixed hyperlipidemia: Code(s): E78.2 - Mixed hyperlipidemia Category: Medical Plan: Results of his labs done earlier today reviewed and discussed with patient Reinforced low cholesterol diet Continue Atorvastatin 10 mg QD and Fenofibrate 160 mg QD Will recheck his labs and fasting lipids in 3 months for follow-up (2) Elevated LFTs: Code(s): R79.89 - Other specified abnormal findings of blood chemistry Category: Medical Plan: His serum AST is still elevated but ALT is normal on his recent labs - is most likely related to his weight as well as his alcohol intake Will send him for abdominal US for further evaluation Will continue to monitor his LFTs regularly (3) Asthma: Code(s): J45.909 - Unspecified asthma, uncomplicated Category: Medical Qualifiers: Asthma complication type: with acute exacerbation Asthma persistence: persistent Asthma severity: moderate Qualified Code(s): J45.41 - Moderate persistent asthma with (acute) exacerbation Plan: Continue Breo Ellipta 200-25 mcg 1 inhalation QD, Montelukast 10 mg QD and Albuterol HFA 2 puffs 4 times a day as needed or Albuterol sulfate solution via nebulizer every 6 hours as needed Follow up with pulmonary as scheduled (4) Impaired fasting glucose: Code(s): R73.01 - Impaired fasting glucose Category: Medical Plan: His FBS was slightly elevated at 105 mg/dL on his labs from this morning; his HgbA1c was normal at 5.8% when previously checked Reinforced low calorie/low carb diet; exercise as tolerated (5) Sarcoidosis: Code(s): D86.9 - Sarcoidosis, unspecified Category: Medical Plan: Stable Chest x-rays done on 10/26/2020 revealed (+) right paratracheal and bilateral hilar prominence similar to the prior study on 03/14/2019. Chest CT done on 02/02/2014 showed (+) lymphadenopathy consistent with history of sarcoidosis His most recent chest CT done on 07/21/2022 revealed (+) Bilateral hilar and mediastinal lymphadenopathy similar to January [address] Multiple small pulmonary nodules the majority of which are stable. There is question of a new 2 mm peripheral left lower lobe nodule. Previously identified semisolid left lower lobe nodule which was the largest nodule January 2014 is no longer seen. Question mild central bronchovascular changes in both upper and right middle lobes - findings are all consistent with his diagnosis of sarcoidosis Follow up with pulmonary as scheduled (6) Sarcoidosis of skin: Code(s): D86.3 - Sarcoidosis of skin Category: Medical Plan: His lesions are predominantly on the left lower leg - most likely cutaneous sarcoid Follow up with dermatology as scheduled (7) Gout: Code(s): M10.9 - Gout, unspecified Category: Medical Qualifiers: Chronicity: unspecified Gout etiology: idiopathic Gout site: unspecified site Qualified Code(s): M10.00 - Idiopathic gout, unspecified site Plan: He has not had any flare ups of his gout lately; his serum uric acid level was normal at 6.7 when previously checked in May 2024 Reinforced low purine diet Continue Colchicine 0.6 mg QD (8) GERD without esophagitis: Code(s): K21.9 - Gastro-esophageal reflux disease without esophagitis Category: Medical Plan: Dietary restrictions reinforced Continue Omeprazole 20 mg QD PRN He is advised that if his symptoms persist despite Rx, then he will need to see gastroenterology for consideration for EGD (9) Alcoholism: Code(s): F10.20 - Alcohol dependence, uncomplicated Category: Medical Plan: Patient is counseled again on drinking and advised to continue abstinence Continue Thiamine (B1) 100 mg QD and Pyridoxine (B6) 100 mg QD (10) Insomnia: Code(s): G47.00 - Insomnia, unspecified Category: Medical Qualifiers: Insomnia type: unspecified Qualified Code(s): G47.00 - Insomnia, unspecified Plan: Sleep hygiene reinforced Continue Trazodone 50 mg Q HS (11) Obesity (BMI 30-39.9): Code(s): E66.9 - Obesity, unspecified Category: Medical Plan: Reinforced diet/exercise as tolerated/lose weight Plan Follow up in 3 months Orders: Orders US abdomen complete 09/13/24 E80.6 - Other disorders of bilirubin metabolism, R10.9 - Unspecified abdominal pain, R79.89 - Other specified abnormal findings of blood chemistry Complete Blood Count Auto Diff 3 Months D64.9 - Anemia, unspecified Lipid Panel 3 Months E78.00 - Pure hypercholesterolemia, unspecified Liver Fibrosis Pnl 3 Months R79.89 - Other specified abnormal findings of blood chemistry TSH reflex Free T4 3 Months E78.00 - Pure hypercholesterolemia, unspecified UA CC w/rflx Micro + Cult 3 Months R30.0 - Dysuria Vitamin B12 and Folate 3 Months E53.8 - Deficiency of other specified B group vitamins Comprehensive War. Panel Fast 3 Months E78.00 - Pure hypercholesterolemia, unspecified Hemoglobin A1c 3 Months R73.01 - Impaired fasting glucose Vitamin D 25-OH Total 3 Months E55.9 - Vitamin D deficiency, unspecified Lactate Dehydrogenase 3 Months R59.9 - Enlarged lymph nodes, unspecified Medications: Refilled trazodone 50 mg PO BEDTIME PRN 30 tabs 3RF insomnia 30 days G47.00 - Insomnia, unspecified
[2024-09-13 15:32] VITALS: BP 124/86; PULSE 92; O2SAT 96; BMI 30.6
== END 2024-09-13 16:11 | disposition home or self-care (01) ==
LOC: HO.HMCH 15:28
PROVIDERS: PCP Internal Medicine; Visit Provider Internal Medicine
DX: D86.3 Sarcoidosis of skin (principal); F10.20 Alcohol dependence, uncomplicated; E66.9 Obesity, unspecified; Z68.30 Body mass index [BMI] 30.0-30.9, adult; E78.2 Mixed hyperlipidemia; R79.89 Other specified abnormal findings of blood chemistry; J45.41 Moderate persistent asthma with (acute) exacerbation; R73.01 Impaired fasting glucose; D86.9 Sarcoidosis, unspecified; M10.00 Idiopathic gout, unspecified site; K21.9 Gastro-esophageal reflux disease without esophagitis; G47.00 Insomnia, unspecified

== ENCOUNTER 2024-10-12 09:19 | Outpatient (AMB) | payer OTHER, SELFPAY ==
[2024-10-12 09:21] VITALS: BP 132/86; PULSE 91; TEMP 36.6; O2SAT 98; BMI 31.5
--- NOTE | 2024-10-12 09:21 | AM.OFFWIN_ITS ---
Intake Vital Signs 10/12/24 09:21 Height 5 ft 3 in Weight 178 lb BMI 31.5 BP 132/86 Blood Pressure Location Lt brachial Position Sitting Pulse 91 Pulse Source Pulse Oximeter Temp 97.8 F Temp Source Oral Pulse Oximetry (%) 98 Oxygen Delivery Method Room Air Intake Visit Reasons: EP sore throat Intake Note: Pt presents to the office today for c/o a sore in the back of his throat x3 days. Pt denies any pain. Patient Tobacco Use Status: Current everyday Tobacco user Allergies ENVIRONMENTAL Allergy (Unknown, Uncoded 10/12/24 09:25) ITCHY THROAT HPI HPI Comments 2 History of Present Illness Details History of Present Illness - The patient is a 54-year-old male pres enting with white patch on the back of his throat. - A white lesion was noted at the back o f the throat, beginning approximately three days ago. - The patient denies associated symptoms such as fever, chills, or cough. - The tongue shows whiteness but he has no pain or foul taste in the mouth. - Inhalers in use include Symbicort, Marge o, Advair, and Albuterol. - The patient reports no difficulty or d iscomfort with the oral lesions. - He denies fever, chills, CP, SOB, ear pain, congestion, runny nose, sinus pain, abd pain, n/v/d. He denies sick contacts. - He admits to smoking. Physical Exam General: Cooperative, healthy appearing, comfortable, no acute distress and well developed Nose: Normal external nose present Face and sinus: Normal facial exam. No sinus tenderness noted. Mouth: White coating noted on the tongue. Aphthous ulcer noted on the posterior pharynx on the left. Neck: Normal visual inspection and Yes full ROM. No lymphadenopathy noted. Respiratory: Normal respiratory effort and able to speak in complete sentences. Clear to auscultation bilaterally Cardiovascular: Regular rate and rhythm. Normal S1 and S2 Skin: No rashes or lesions noted Patient was informed and verbally consented to the use of an ambient scribe for clinic note documentation during this visit. [facility] Medical History Hyperbilirubinemia Asthma Lymphadenopathy Mixed hyperlipidemia Elevated LFTs Alcoholism GERD without esophagitis Obesity (BMI 30-39.9) Anxiety Insomnia Gout Sarcoidosis Pure hypercholesterolemia Surgical History No pertinent past surgical history Family History Father No problems noted. Mother Diabetes Social History Housing: House Alcohol intake: current Alcohol intake frequency: a few times a week Alcohol type: beer Patient Tobacco Use Status: Current everyday Tobacco user Tobacco use type: Cigarette Cigarettes Per Day: 2 e-Cigarette/Vaping Use: Never Used Second Hand Smoke Exposure: Yes Substance Use Type: Former Substance User service: No Current occupational status: disabled Current occupation: rt handed Cognitive needs: No Hearing needs: No Vision needs: Yes Review of Systems Const All systems reviewed & are unremarkable except as noted in HPI and below Physical Exam Vital Signs: Last Vital Signs Temp 97.8 F 10/12/24 09:21 Pulse 91 10/12/24 09:21 BP 132/86 10/12/24 09:21 Pulse Ox 98 10/12/24 09:21 Oxygen Delivery Method Room Air 10/12/24 09:21 BMI result Body Mass Index 31.5 Assessment & Plan Assessment & Plan (1) Thrush: Code(s): B37.0 - Candidal stomatitis (2) Canker sore: Code(s): K12.0 - Recurrent oral aphthae Plan Most likely cancer sore vs thrush Plan - Initiated antifungal mouthwash therapy for oral candidiasis, with instructions for use to swish and swallow, spanning seven days. - Advised on oral hygiene practices post-inhaler use to prevent recurrence of oral thrush. - Patient advised to report any persistent or worsening symptoms. Medications: New nystatin administer 1/2 of dose in each side of the mouth 5 mL buccal qid 140 mL 0RF 7 days Coding Level of Care Code Est Pt Level 3 (30993) Diagnoses Thrush B37.0 Canker sore K12.0
== END 2024-10-12 09:47 | disposition home or self-care (01) ==
PROVIDERS: PCP Internal Medicine; Visit Provider Physician Assistant Medical
DX: B37.0 Candidal stomatitis (principal); K12.0 Recurrent oral aphthae

== ENCOUNTER → 2024-10-12 09:19 | Outpatient (BNVA) | payer OTHER, SELFPAY | PROVIDERS: PCP Internal Medicine; Visit Provider Physician Assistant Medical | DX: B37.0 Candidal stomatitis (principal); K12.0 Recurrent oral aphthae | CPT/HCPCS: 99212 ==

== ENCOUNTER 2024-11-03 09:11 | Outpatient (REF) | payer OTHER, SELFPAY ==
--- NOTE | ~2024-11-03 | US_ITS ---
CLINICAL HISTORY: R10.9 - Unspecified abdominal pain US abdomen complete Comparison: CT/SR - CT ABDOMEN PELVIS W IV CON - 02/26/23 18:03 EDT Findings: The visualized pancreas is normal. The aorta and inferior vena cava are normal caliber. The liver demonstrates coarsened heterogeneous echotexture. The liver is measured at 16 cm on the current study. This is likely an underestimation as the liver measures 21 cm in the patient's prior CT. Hypodense lesion seen within the left hepatic lobe measuring 5 x 4 x 7 mm.no corresponding abnormality identified on the patient's prior CT abdomen pelvis. There is no intrahepatic bile duct dilatation. The common duct is 2 mm in diameter. The gallbladder is normal. There is no sonographic Naylor sign. The main portal vein is antegrade. The right kidney is 11.9 cm in length. The left kidney is 11.1 cm in length. The spleen is enlarged measuring 15.9 cm. No ascites. IMPRESSION: 1. Morphologic changes of chronic liver disease with splenomegaly. No ascites. 5 x 4 x 7 mm hypodense lesion in the left hepatic lobe without correlate on the patient's prior CT abdomen pelvis from 2022. Recommend further characterization with MRI abdomen with and without contrast. This document has been electronically signed by: Jaqui Mojica MD on 11/04/2024 09:07:40
== END 2024-11-03 09:12 | disposition home or self-care (01) ==
LOC: HO.US 09:11
PROVIDERS: PCP Internal Medicine; Visit Provider Internal Medicine
DX: R10.9 Unspecified abdominal pain (principal); R79.89 Other specified abnormal findings of blood chemistry; E80.6 Other disorders of bilirubin metabolism
CPT/HCPCS: 76700

== ENCOUNTER → 2024-11-03 09:13 | Outpatient (BNV) | payer OTHER, SELFPAY | PROVIDERS: PCP Internal Medicine; Visit Provider Radiology Diagnostic Radiology | DX: R16.1 Splenomegaly, not elsewhere classified (principal); N18.9 Chronic kidney disease, unspecified | CPT/HCPCS: 76700 ==

== ENCOUNTER 2024-11-23 15:51 | Outpatient (AMB) | payer OTHER, SELFPAY ==
[2024-11-23 16:11] VITALS: BP 116/70; PULSE 80; TEMP 36.7; O2SAT 98; BMI 31.2
--- NOTE | 2024-11-23 16:11 | MHC.OFFWIV ---
Intake Vital Signs 11/23/24 16:11 Height 5 ft 3 in Weight 176 lb BMI 31.2 BP 116/70 Blood Pressure Location Lt brachial Position Sitting Pulse 80 Pulse Source Pulse Oximeter Temp 98.1 F Temp Source Oral Pulse Oximetry (%) 98 Oxygen Delivery Method Room Air Intake Visit Reasons: EP red, itchy, swollen RT eye Intake Note: presents with RT eye redness, itchy, weeping, gritty feeling for 3 days Patient Tobacco Use Status: Current everyday Tobacco user Allergies ENVIRONMENTAL Allergy (Mild, Uncoded 11/23/24 16:19) ITCHY THROAT HPI HPI Comments History of Present Illness Details History of Present Illness - The patient is a 54-year-old male presenting with redness to the right eye. - Reports of redness, itching, and burning in the right eye began on Thursday. - No crusting or discharge, only watery eyes are noted. - Denies any cold symptoms such as a runny nose. - He denies blurry or double vision, [place], ST, ear pain, sinus pain, congestion, fever or chills. - He denies FB or trauma. - He does not where contact lens. Physical Exam General: Cooperative, healthy appearing, comfortable, no acute distress and well developed Orientation: Patient oriented x3 Limitations: No limitations Head: Normal to inspection Ears: Hearing grossly normal bilaterally Nose: Normal external nose present Eyes: PERRLA, EOMI. Erythema to the right sclera and conjunctiva. No FB noted. Tearing noted. Neck: Normal visual inspection and Yes full ROM. No lymphadenopathy noted. Respiratory: Normal respiratory effort and able to speak in complete sentences. Clear to auscultation bilaterally Cardiovascular: Regular rate and rhythm. Normal S1 and S2 n Patient was informed and verbally consented to the use of an ambient scribe for clinic note documentation during this visit. [facility] Medical History Hyperbilirubinemia Asthma Lymphadenopathy Mixed hyperlipidemia Elevated LFTs Alcoholism GERD without esophagitis Obesity (BMI 30-39.9) Anxiety Insomnia Gout Sarcoidosis Pure hypercholesterolemia Surgical History No pertinent past surgical history Family History Father No problems noted. Mother Diabetes Social History Housing: House Alcohol intake: current Alcohol intake frequency: a few times a week Alcohol type: beer Patient Tobacco Use Status: Current everyday Tobacco user Tobacco use type: Cigarette Cigarettes Per Day: 2 e-Cigarette/Vaping Use: Never Used Second Hand Smoke Exposure: Yes Substance Use Type: Former Substance User service: No Current occupational status: disabled Current occupation: rt handed Cognitive needs: No Hearing needs: No Vision needs: Yes Physical Exam Vital Signs: Last Vital Signs Temp 98.1 F 11/23/24 16:11 Pulse 80 11/23/24 16:11 BP 116/70 11/23/24 16:11 Pulse Ox 98 11/23/24 16:11 Oxygen Delivery Method Room Air 11/23/24 16:11 BMI result Body Mass Index 31.2 Assessment & Plan Assessment & Plan (1) Redness of eye, right: Code(s): H57.89 - Other specified disorders of eye and adnexa Plan Most likely conjunctivitis bacterial vs allergic vs FB vs corneal abrasion Plan - Cipro drops to the eye 4 times a day for 5 days - If symptoms do not improve, the patient is advised to see an clearing tub worker. Medications: New ciprofloxacin HCl 0.3% 1 - 2 drops into the right eye four times a day 5 mL 0RF 5 days Coding Level of Care Code Est Pt Level 3 (79689) Diagnoses Redness of eye, right H57.89
== END 2024-11-23 16:37 | disposition home or self-care (01) ==
PROVIDERS: PCP Internal Medicine; Visit Provider Physician Assistant Medical
DX: H57.89 Other specified disorders of eye and adnexa (principal)

== ENCOUNTER → 2024-11-23 15:51 | Outpatient (BNVA) | payer OTHER, SELFPAY | PROVIDERS: PCP Internal Medicine; Visit Provider Physician Assistant Medical | DX: H57.89 Other specified disorders of eye and adnexa (principal) | CPT/HCPCS: 99212 ==

== ENCOUNTER 2024-12-30 12:48 | Outpatient (AMB) | payer OTHER, SELFPAY ==
[2024-12-30 12:54] VITALS: BP 126/84; PULSE 93; O2SAT 95; BMI 30.6
--- NOTE | 2024-12-30 12:54 | A.OFFPC_ITS ---
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 Accompanied by: Self / Same As Patient Allergies ENVIRONMENTAL Allergy (Mild, Uncoded 12/30/24 13:14) ITCHY THROAT Medication List - Last Reconciled 12/30/24 by Doc Marrero MD acetaminophen 650 mg (2 x 325 mg) PO Q4H PRN albuterol sulfate 2.5 mg (0.5 mL) continuous nebulization QID PRN 30 days albuterol sulfate 90 mcg/actuation 2 puffs PO Q6-8H PRN 30 days atorvastatin 10 mg PO DAILY 90 days cetirizine (Zyrtec) 10 mg PO DAILY PRN cholecalciferol (vitamin D3) 50 mcg PO DAILY 90 days ciprofloxacin HCl 0.3% 1 - 2 drops into the right eye four times a day 5 days fenofibrate 160 mg PO DAILY 90 days fluticasone furoate-vilanterol 200-25 mcg/dose (Breo Ellipta) 1 inh inhalation DAILY 30 days ibuprofen 600 mg PO Q6-8H PRN montelukast 10 mg PO DAILY 90 days nystatin 5 mL buccal qid PRN omeprazole 20 mg PO DAILY Symbicort 160-4.5 mcg/actuation (budesonide-formoterol) 2 puffs inhalation BID 30 days NS thiamine HCl (vitamin B1) 100 mg PO DAILY 30 days trazodone 50 mg PO BEDTIME PRN 30 days Tobacco use date assessed: 12/30/24 Dental Screening Dental Screen Date: 12/30/24 Did you have a dental visit in the last 12 months?: No Did you have a dental problem in the last 6 months where you did not have access to dental care?: No Was dental information given to patient?: No HPI Follow-up HPI Details Patient comes in today for his follow-up visit States that he feels okay except for increased allergy symptoms lately, including nasal and sinus drainage and frequent sneezing He denies any headaches or dizziness; denies any fever or sore throat Denies any chest pains, no shortness of breath No nausea/vomiting, no abdominal pain No change in bowel habits noted He had his follow-up labs done a couple of weeks ago - to discuss his results [facility] Medical History Hyperbilirubinemia Asthma Lymphadenopathy Mixed hyperlipidemia Elevated LFTs Alcoholism GERD without esophagitis Obesity (BMI 30-39.9) Anxiety Insomnia Gout Sarcoidosis Pure hypercholesterolemia Surgical History No pertinent past surgical history Family History Father No problems noted. Mother Diabetes Social History Housing: House Alcohol intake: current Alcohol intake frequency: a few times a week Alcohol type: beer Patient Tobacco Use Status: Current everyday Tobacco user Tobacco use type: Cigarette Cigarettes Per Day: 2 e-Cigarette/Vaping Use: Never Used Second Hand Smoke Exposure: Yes Substance Use Type: Former Substance User service: No Current occupational status: disabled Current occupation: rt handed Cognitive needs: No Hearing needs: No Vision needs: Yes Questionnaire PHQ-9 Over the last 2 weeks, how often have you been bothered by any of the following problems? 1. Little interest or pleasure in doing things: not at all 2. Feeling down, depressed, or hopeless: not at all 3. Trouble falling or staying asleep, or sleeping too much: not at all 4. Feeling tired or having little energy: not at all 5. Poor appetite or overeating: not at all 6. Feeling bad about yourself - or that you are a failure or have let yourself or your family down: not at all 7. Trouble concentrating on things, such as reading the newspaper or watching television: not at all 8. Moving or speaking so slowly that other people could have noticed. Or the opposite - being so fidgety or restless that you have been moving around a lot more than usual: not at all 9. Thoughts that you would be better off or of hurting yourself in some way: not at all Total score: 0 Depression Screening Interpretation: Negative Depression Screening Done: Yes 26379 - PHQ-9 Billing: Yes Source: Developed by Drs. Bennie Graff, AnitaMarek Marroquin and colleagues, with an educational yana from [employer]. Thrive Questionnaire Date Thrive assessed: 12/30/24 I am a: Patient What is your living situation today?: I choose not to answer this question Within the past 12 months, did the food you bought not last and you didn't have the money to get more?: I choose not to answer this question Within the past 12 months, did you worry whether your food would run out before you got money to buy more?: I choose not to answer this question Do you have trouble paying for medicines?: I choose not to answer this question Do you have trouble getting transportation to medical appointments?: I choose not to answer this question Do you have trouble paying your heating and electricity bill?: I choose not to answer this question Do you have trouble taking care of your child, family member or friend?: I choose not to answer this question Do you have trouble with day-to-day activities such as bathing, preparing meals, shopping, managing finances, etc.?: I choose not to answer this question Are you currently unemployed and looking for a job?: I choose not to answer this question Are you interested in more education?: I choose not to answer this question Please select the resources that you would like help with: None Currently or been in a relationship where the following occur: I choose not to answer THRIVE Score: 0 AUDIT C Alcohol Use Questionnaire (AUDIT-C) 1. How often do you have a drink containing alcohol?: Never 3. How often do you have six or more drinks on one occasion?: Never Total Score: 0 Score Reviewed/Action Taken: Yes BARON-7 AMB Questionnaire BARON-7 Date BARON - 7 assessed: 12/30/24 Feeling nervous, anxious, or on edge: 0 = Not at all Not being able to stop or control worryin = Not at all Worrying too much about different things: 0 = Not at all Trouble relaxin = Not at all Being so restless that it is hard to sit still: 0 = Not at all Becoming easily annoyed or irritable: 0 = Not at all Feeling afraid as if something awful might happen: 0 = Not at all Total BARON-7 score (0-4 normal; 5-9 mild; 10-14 moderate; 15-21 severe): 0 Source: Developed by Drs. Bennie Graff, Anita Aleman, Marek Mckeon and colleagues, with an educational yana from [employer]. Review of Systems Const Denies chills, Denies fatigue, Denies fever(s) and Denies headache(s) ENT Denies dysphagia, Denies dizziness, Denies otalgia, Denies headache(s), Reports nasal congestion (occasional), Reports nasal discharge, Denies neck pain, Denies odynophagia and Denies sore throat Card Denies chest pain, Denies palpitations and Denies dyspnea Resp Denies chest congestion, Denies cough and Denies dyspnea GI Denies abdominal pain, Denies constipation, Denies dysphagia, Denies heartburn, Denies diarrhea, Denies nausea, Denies odynophagia and Denies vomiting Denies difficulty urinating, Denies dysuria, Denies nocturia and Denies urinary frequency Musc Denies back pain, Reports arthralgias (on and off - affecting multiple joints) and Denies neck pain Skin/Breast Denies rash Neuro Denies dizziness and Denies headache(s) Endo Denies fatigue and Denies palpitations Aller/Immun Reports seasonal rhinorrhea Physical exam (Primary Care) Vital Signs: Last Vital Signs Pulse 93 12/30/24 12:54 BP 126/84 12/30/24 12:54 Pulse Ox 95 12/30/24 12:54 Oxygen Delivery Method Room Air 12/30/24 12:54 BMI result Body Mass Index 30.6 Tobacco/Smoking Status: Tobacco use Status Tobacco use date assessed 12/30/24 12/30/24 12:56 Patient Tobacco Use Status Current everyday Tobacco 12/30/24 12:56 Tobacco use type Cigarette 12/30/24 12:56 e-Cigarette/Vaping Use Never Used 12/30/24 12:56 PHQ-9: PHQ-9 Score PHQ-9: Total score 0 01/01/25 10:42 Depression Screening Interpretation: Negative Thrive Assessment: Date of Thrive Assessment Date Thrive assessed 12/30/24 12/30/24 12:56 Currently or been in a relationship where the following occur: I choose not to answer Const General: no acute distress and alert HENMT Ears: TM's normal bilaterally and EAC's normal Throat: Yes posterior oropharynx normal and Yes tonsils normal (no TP congestion) Neck Neck: Yes supple and No lymphadenopathy Thyroid: Thyroid normal Resp Auscultation: clear to auscultation bilaterally, no rales and no wheezes Cardio Rate: regular rate Rhythm: regular rhythm Heart sounds: no murmurs GI Palpation (GI): Soft to palpation and nontender Auscultation: normal bowel sounds General: Yes no CVA tenderness Back/Spine/Pelvis Back: no CVA tenderness Thoracic/Lumbar Spine: No lumbar spinal tenderness Skin Rashes: no rashes Extrem General: Yes no clubbing, cyanosis or edema Results Reviewed Results Reviewed: Laboratory Tests 06/10/24 08/22/24 09/13/24 08:42 23:57 06:22 WBC 3.9 L Hgb 15.9 Hct 47.0 Plt Count 91 L D Sodium 140 Potassium 4.2 Creatinine 0.90 Estimated GFR > 60 Fasting Glucose 105 H Calcium 9.5 Total Bilirubin 1.7 H AST 60 H ALT 28 Alkaline Phosphatase 131 H Triglycerides 132 112 Cholesterol 210 H 201 H LDL Cholesterol, Calc 139 H 139 H HDL Cholesterol 45 40 L Ur Specific [place] <= 1.005 Urine Protein Negative Urine Glucose (UA) Negative Urine Blood Negative Urine Nitrite Negative Ur Leukocyte Esterase Negative Coding Level of Care Code Est Pt Level 4 (90622) Diagnoses Mixed hyperlipidemia E78.2 Elevated LFTs R79.89 Moderate persistent asthma with acute exacerbation J45.41 Asthma severity: moderate Asthma persistence: persistent Asthma complication type: with acute exacerbation Impaired fasting glucose R73.01 Sarcoidosis D86.9 Pulmonary nodules/lesions, multiple R91.8 Sarcoidosis of skin D86.3 Seasonal allergic rhinitis, unspecified trigger J30.2 Allergic rhinitis trigger: unspecified Allergic rhinitis seasonality: seasonal Idiopathic gout, unspecified chronicity, unspecified site M10.00 Gout site: unspecified site Gout etiology: idiopathic Chronicity: unspecified GERD without esophagitis K21.9 Alcoholism F10.20 Insomnia, unspecified type G47.00 Insomnia type: unspecified Obesity (BMI 30-39.9) E66.9 Additional Codes PHQ-9 - 00799 - PHQ-9 Billing: Yes ([id number]) Assessment & Plan Assessment & Plan (1) Mixed hyperlipidemia: Code(s): E78.2 - Mixed hyperlipidemia Category: Medical Plan: Results of his labs done a couple of weeks ago reviewed and discussed with patient - he is advised that his cholesterol levels are still elevated and are mostly unchanged from previous Reinforced low cholesterol diet Continue Atorvastatin 10 mg QD and Fenofibrate 160 mg QD for now - he is advised that I am not increasing his Rx dosage yet due to his elevated LFTs Will recheck his labs and fasting lipids in 4 months for follow-up (2) Elevated LFTs: Code(s): R79.89 - Other specified abnormal findings of blood chemistry Category: Medical Plan: His serum AST is still elevated but ALT is normal on his recent labs - is most likely related to his weight as well as his alcohol intake Abdominal US done a couple of months ago revealed (+) morphologic changes of chronic liver disease with splenomegaly; no ascites was noted. There is a 5 x 4 x 7 mm hypodense lesion in the left hepatic lobe without correlate on the patient's prior CT abdomen pelvis from 2022. Recommend further characterization with MRI abdomen with and without contrast Will continue to monitor his LFTs regularly (3) Asthma: Code(s): J45.909 - Unspecified asthma, uncomplicated Category: Medical Qualifiers: Asthma severity: moderate Asthma persistence: persistent Asthma complication type: with acute exacerbation Qualified Code(s): J45.41 - Moderate persistent asthma with (acute) exacerbation Plan: Controlled Continue Breo Ellipta 200-25 mcg 1 inhalation QD, Montelukast 10 mg QD and Albuterol HFA 2 puffs 4 times a day as needed or Albuterol sulfate solution via nebulizer every 6 hours as needed Follow up with pulmonary as scheduled (4) Impaired fasting glucose: Code(s): R73.01 - Impaired fasting glucose Category: Medical Plan: His FBS was again slightly elevated at 105 mg/dL on his labs from a couple of weeks ago; his HgbA1c was normal at 5.8% when previously checked Reinforced low calorie/low carb diet; exercise as tolerated (5) Sarcoidosis: Code(s): D86.9 - Sarcoidosis, unspecified Category: Medical Plan: Stable Chest x-rays done on 10/26/2020 revealed (+) right paratracheal and bilateral hilar prominence similar to the prior study on 03/14/2019. Chest CT done on 02/02/2014 showed (+) lymphadenopathy consistent with history of sarcoidosis His most recent chest CT done on 07/21/2022 revealed (+) bilateral hilar and mediastinal lymphadenopathy similar to January [address] Multiple small pulmonary nodules the majority of which are stable. There is question of a new 2 mm peripheral left lower lobe nodule. Previously identified semisolid left lower lobe nodule which was the largest nodule January 2014 is no longer seen. Question mild central bronchovascular changes in both upper and right middle lobes - findings are all consistent with his diagnosis of sarcoidosis He used to see pulmonary but has not been back in a couple of years - will refer him back to pulmonary for continuing follow up and management (6) Pulmonary nodules/lesions, multiple: Code(s): R91.8 - Other nonspecific abnormal finding of lung field Category: Medical Plan: His last chest CT done in June 2022 revealed (+) possible new 2 mm peripheral left lower lobe nodule with (?) mild central bronchovascular changes in both upper and right middle lobes. Infectious, inflammatory and neoplastic processes should be considered Will send patient for repeat chest CT MIGUEL for further evaluation (7) Sarcoidosis of skin: Code(s): D86.3 - Sarcoidosis of skin Category: Medical Plan: His lesions are predominantly on the left lower leg - most likely cutaneous sarcoid Follow up with dermatology as scheduled (8) Allergic rhinitis: Code(s): J30.9 - Allergic rhinitis, unspecified Category: Medical Qualifiers: Allergic rhinitis trigger: unspecified Allergic rhinitis seasonality: seasonal Qualified Code(s): J30.2 - Other seasonal allergic rhinitis Plan: Will start patient on Loratadine 10 mg QD PRN (9) Gout: Code(s): M10.9 - Gout, unspecified Category: Medical Qualifiers: Gout site: unspecified site Gout etiology: idiopathic Chronicity: unspecified Qualified Code(s): M10.00 - Idiopathic gout, unspecified site Plan: He has not had any flare ups of his gout lately; his serum uric acid level was normal at 6.7 when previously checked in May 2024 Reinforced low purine diet Continue Colchicine 0.6 mg QD (10) GERD without esophagitis: Code(s): K21.9 - Gastro-esophageal reflux disease without esophagitis Category: Medical Plan: Dietary restrictions reinforced Continue Omeprazole 20 mg QD PRN He is advised that if his symptoms persist despite Rx, then he will need to see gastroenterology for consideration for EGD (11) Alcoholism: Code(s): F10.20 - Alcohol dependence, uncomplicated Category: Medical Plan: Patient is counseled again on drinking and advised to continue abstinence Continue Thiamine (B1) 100 mg QD and Pyridoxine (B6) 100 mg QD (12) Insomnia: Code(s): G47.00 - Insomnia, unspecified Category: Medical Qualifiers: Insomnia type: unspecified Qualified Code(s): G47.00 - Insomnia, unspecified Plan: Sleep hygiene reinforced Continue Trazodone 50 mg Q HS (13) Obesity (BMI 30-39.9): Code(s): E66.9 - Obesity, unspecified Category: Medical Plan: Reinforced diet/exercise as tolerated/lose weight Plan Follow up in 4 months Orders: Orders CT chest w IV con 12/30/24 D86.9 - Sarcoidosis, unspecified, R91.8 - Other nonspecific abnormal finding of lung field Complete Blood Count Auto Diff 4 Months D64.9 - Anemia, unspecified Comprehensive Sullivan. Panel Fast 4 Months E78.00 - Pure hypercholesterolemia, unspecified UA CC w/rflx Micro + Cult 4 Months R30.0 - Dysuria Vitamin D 25-OH Total 4 Months E55.9 - Vitamin D deficiency, unspecified Lipid Panel 4 Months E78.00 - Pure hypercholesterolemia, unspecified TSH reflex Free T4 4 Months E78.00 - Pure hypercholesterolemia, unspecified Referrals Pulmonology Referral D86.9 - Sarcoidosis, unspecified Medications: New loratadine 10 mg PO DAILY PRN 90 tabs 3RF allergy symptoms 90 days J30.9 - Allergic rhinitis, unspecified
== END 2024-12-30 13:46 | disposition home or self-care (01) ==
LOC: HO.HMCH 12:49
PROVIDERS: PCP Internal Medicine; Visit Provider Internal Medicine
DX: E78.2 Mixed hyperlipidemia (principal); R79.89 Other specified abnormal findings of blood chemistry; D86.3 Sarcoidosis of skin; F10.20 Alcohol dependence, uncomplicated; J45.41 Moderate persistent asthma with (acute) exacerbation; R73.01 Impaired fasting glucose; D86.9 Sarcoidosis, unspecified; R91.8 Other nonspecific abnormal finding of lung field; J30.2 Other seasonal allergic rhinitis; M10.00 Idiopathic gout, unspecified site; K21.9 Gastro-esophageal reflux disease without esophagitis; G47.00 Insomnia, unspecified

== ENCOUNTER → 2024-12-30 12:48 | Outpatient (BNVA) | payer OTHER, SELFPAY | PROVIDERS: PCP Internal Medicine; Visit Provider Internal Medicine | DX: E78.2 Mixed hyperlipidemia (principal); R79.89 Other specified abnormal findings of blood chemistry; J45.41 Moderate persistent asthma with (acute) exacerbation; R73.01 Impaired fasting glucose; D86.9 Sarcoidosis, unspecified; R91.8 Other nonspecific abnormal finding of lung field; D86.3 Sarcoidosis of skin; J30.2 Other seasonal allergic rhinitis; M10.00 Idiopathic gout, unspecified site; K21.9 Gastro-esophageal reflux disease without esophagitis; F10.20 Alcohol dependence, uncomplicated; G47.00 Insomnia, unspecified; E66.9 Obesity, unspecified; E78.00 Pure hypercholesterolemia, unspecified; Z68.30 Body mass index [BMI] 30.0-30.9, adult | CPT/HCPCS: 96127; 99212 ==

== ENCOUNTER 2025-02-11 10:00 | Outpatient (REF) | payer OTHER, SELFPAY ==
--- NOTE | ~2025-02-11 | CT_ITS ---
CLINICAL HISTORY: D86.9 - Sarcoidosis, unspecified CT chest without contrast Comparison: CR/WY/SR - XR RIBS 3 VIEWS MINIMUM WITH CHEST LEFT - 08/11/23 13:[address]/SR - CT CHEST WITH IV CONTRAST - 07/21/22 10:02 EDT Findings: Normal heart,size. No significant pericardial effusion. Coronary artery calcifications are present. No thoracic aorta aneurysm. Mildly enlarged mediastinal and bilateral hilar lymph nodes are present. Some of the lymph nodes appear partially calcified. No axillary lymphadenopathy by CT size criteria. No focal pulmonary consolidation, pneumothorax, or pleural effusion. 8 mm ground-glass right upper lobe pulmonary nodule on image number 51 of series 9. Borderline enlarged lymph nodes are identified throughout the upper abdomen. The spleen is enlarged. The liver is incompletely included on this exam. Hepatomegaly is not excluded. No acute fractures. Impression: Mildly enlarged mediastinal and bilateral hilar lymph nodes with borderline prominent lymph nodes of the upper abdomen. These findings may be related to sarcoidosis given the patient's history. No focal pulmonary consolidation, pneumothorax, or pleural effusion. 8 mm ground-glass nodule visualized at the right upper lobe. Recommend CT at 6-12 months to confirm persistence, then CT every 2 years until 5 years according to Fleischner criteria. Splenomegaly. Hepatomegaly is not excluded. The liver is incompletely included on this exam. This document has been electronically signed by: Aj Grady MD on 02/14/2025 03:44:11
== END 2025-02-11 10:01 | disposition home or self-care (01) ==
LOC: HO.CT 10:00
PROVIDERS: PCP Internal Medicine; Visit Provider Internal Medicine
DX: R91.8 Other nonspecific abnormal finding of lung field (principal); D86.9 Sarcoidosis, unspecified
CPT/HCPCS: 71250

== ENCOUNTER → 2025-02-11 10:02 | Outpatient (BNV) | payer OTHER, SELFPAY | PROVIDERS: PCP Internal Medicine; Visit Provider Radiology Diagnostic Radiology | DX: D86.9 Sarcoidosis, unspecified (principal); R16.1 Splenomegaly, not elsewhere classified; R91.1 Solitary pulmonary nodule; R59.1 Generalized enlarged lymph nodes | CPT/HCPCS: 71250 ==

== ENCOUNTER 2025-02-16 15:21 | Outpatient (AMB) | payer OTHER, SELFPAY ==
--- NOTE | 2025-02-16 15:37 | MHC.PC.OV ---
Vital Signs 02/16/25 15:38 Height 5 ft 3 in Weight 175 lb BMI 31.0 BP 120/68 Blood Pressure Location Lt brachial Position Sitting Pulse 95 Pulse Source Pulse Oximeter Temp 97.3 F Temp Source Temporal Artery Scan Pulse Oximetry (%) 95 Oxygen Delivery Method Room Air Intake Visit Reasons: swollen nose, pain on head and back Intake Note: Patient is here to follow up on Swollen nose, head and back pain. 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: Not Required per policy Accompanied by: Self / Same As Patient Allergies ENVIRONMENTAL Allergy (Mild, Uncoded 02/16/25 15:38) ITCHY THROAT Medication List - Last Reconciled 02/16/25 by Brodie Warren MD acetaminophen 650 mg (2 x 325 mg) PO Q4H PRN albuterol sulfate 2.5 mg (0.5 mL) continuous nebulization QID PRN 30 days albuterol sulfate 90 mcg/actuation 2 puffs PO Q6-8H PRN 30 days atorvastatin 10 mg PO DAILY 90 days cetirizine (Zyrtec) 10 mg PO DAILY PRN cholecalciferol (vitamin D3) 50 mcg PO DAILY 90 days fenofibrate 160 mg PO DAILY 90 days fluticasone furoate-vilanterol 200-25 mcg/dose (Breo Ellipta) 1 inh inhalation DAILY 30 days ibuprofen 600 mg PO Q6-8H PRN loratadine 10 mg PO DAILY PRN 90 days montelukast 10 mg PO DAILY 90 days nystatin 5 mL buccal qid PRN omeprazole 20 mg PO DAILY Symbicort 160-4.5 mcg/actuation (budesonide-formoterol) 2 puffs inhalation BID 30 days NS thiamine HCl (vitamin B1) 100 mg PO DAILY 30 days trazodone 50 mg PO BEDTIME PRN 30 days Tobacco use date assessed: 02/16/25 Dental Screening Dental Screen Date: 12/30/24 HPI HPI Comments History of Present Illness Details The patient is a 54-year-old male presenting with sinus pain and suspected sinusitis. The patient reports experiencing pain in the back of the head and face for approximately one week. He denies sneezing but mentions a slight watery discharge. There is no history of fever associated with these symptoms. The patient has not taken any [id number] medications for this condition. He has been advised to use a nasal spray, Nasonax, twice daily and to continue taking cetirizine. An x-ray of the face has been planned to further evaluate the condition. [facility] Medical History (Updated 02/16/25 @ 15:54 by Brodie Warren MD) Hyperbilirubinemia Asthma Lymphadenopathy Mixed hyperlipidemia Elevated LFTs Alcoholism GERD without esophagitis Obesity (BMI 30-39.9) Anxiety Insomnia Gout Sarcoidosis Pure hypercholesterolemia Surgical History (Updated 02/16/25 @ 15:43 by LIBBY Strickland) History of carpal tunnel surgery Family History Father No problems noted. Mother Diabetes Social History Housing: House Alcohol intake: current Alcohol intake frequency: a few times a week Alcohol type: beer Patient Tobacco Use Status: Current someday Tobacco user Tobacco use type: Cigarette Cigarette Packs Per Day: 0.25 Cigarettes Per Day: 2 e-Cigarette/Vaping Use: Never Used Second Hand Smoke Exposure: Yes Substance Use Type: Former Substance User service: No Current occupational status: disabled Current occupation: rt handed Cognitive needs: No Hearing needs: No Vision needs: Yes Questionnaire Thrive Questionnaire Date Thrive assessed: 09/13/24 I am a: Patient What is your living situation today?: I choose not to answer this question Within the past 12 months, did the food you bought not last and you didn't have the money to get more?: I choose not to answer this question Within the past 12 months, did you worry whether your food would run out before you got money to buy more?: I choose not to answer this question Do you have trouble paying for medicines?: I choose not to answer this question Do you have trouble getting transportation to medical appointments?: I choose not to answer this question Do you have trouble paying your heating and electricity bill?: I choose not to answer this question Do you have trouble taking care of your child, family member or friend?: I choose not to answer this question Do you have trouble with day-to-day activities such as bathing, preparing meals, shopping, managing finances, etc.?: I choose not to answer this question Are you currently unemployed and looking for a job?: I choose not to answer this question Are you interested in more education?: I choose not to answer this question Please select the resources that you would like help with: None Currently or been in a relationship where the following occur: I choose not to answer THRIVE Score: 0 BARON-7 AMB Questionnaire BARON-7 Date BARON - 7 assessed: 12/30/24 Source: Developed by Drs. Bennie Graff, Anita Aleman, Marek Mckeon and colleagues, with an educational yana from [employer]. Review of Systems Const Details: Positives besides what was mentioned in HPI are in BOLD Constitutional: No Weight Change, No Fever, No Chills, No Night Sweats, No Fatigue, No Malaise ENT/Mouth: No Hearing Changes, No Ear Pain, No Nasal Congestion, No Sinus Pain, No Hoarseness, No sore throat, No Rhinorrhea, No Swallowing Difficulty Eyes: No Eye Pain, No Swelling, No Redness, No Foreign Body, No Discharge, No Vision Changes Cardiovascular: No Chest Pain, No SOB, No PND, No Dyspnea on Exertion, No Orthopnea, No Claudication, No Edema, No Palpitations Respiratory: No Cough, No Sputum, No Wheezing, No Smoke Exposure, No Dyspnea Gastrointestinal: No Nausea, No Vomiting, No Diarrhea, No Constipation, No Pain, No Heartburn, No Anorexia, No Dysphagia, No Hematochezia, No Melena, No Flatulence, No Jaundice Genitourinary: No Dysmenorrhea, No DUB, No Dyspareunia, No Dysuria, No Urinary Frequency, No Hematuria, No Urinary Incontinence, No Urgency, No Flank Pain, No Urinary Flow Changes, No Hesitancy Musculoskeletal: No Arthralgias, No Myalgias, No Joint Swelling, No Joint Stiffness, No Back Pain, No Neck Pain, No Injury History Skin: No Skin Lesions, No Pruritis, No Hair Changes, No Breast/Skin Changes, No Nipple Discharge Neuro: No Weakness, No Numbness, No Paresthesias, No Loss of Consciousness, No Syncope, No Dizziness, No Headache, No Coordination Changes, No Recent Falls Psych: No Anxiety/Panic, No Depression, No Insomnia, No Personality Changes, No Delusions, No Rumination, No SI/HI/AH/VH, No Social Issues, No Memory Changes, No Violence/Abuse Hx., No Eating Concerns Heme/Lymph: No Bruising, No Bleeding, No Transfusions History, No Lymphadenopathy Endocrine: No Polyuria, No Polydipsia, No Temperature Intolerance Physical exam (Primary Care) Vital Signs: Last Vital Signs Temp 97.3 F 02/16/25 15:38 Pulse 95 02/16/25 15:38 BP 120/68 02/16/25 15:38 Pulse Ox 95 02/16/25 15:38 Oxygen Delivery Method Room Air 02/16/25 15:38 BMI result Body Mass Index 31.0 Tobacco/Smoking Status: Tobacco use Status Tobacco use date assessed 02/16/25 02/16/25 15:44 Patient Tobacco Use Status Current someday Tobacco 02/16/25 15:44 Tobacco use type Cigarette 02/16/25 15:44 e-Cigarette/Vaping Use Never Used 02/16/25 15:44 Thrive Assessment: Date of Thrive Assessment Date Thrive assessed 09/13/24 02/16/25 15:44 Currently or been in a relationship where the following occur: I choose not to answer Const Other: Pertinent findings are in BOLD GENERAL APPEARANCE NAD, activity normal for age, well developed/ well nourished, no cyanosis, pallor, or diaphoresis. EYES lids/conjunctiva normal. EARS/NOSE/THROAT Mucous membranes moist, nares normal, lips/teeth normal uvula midline without oral pharyngeal erythema, exudate or swelling TMs normal bilaterally. No lymphangitis/lymphedema. HEAD/NECK normocephalic atraumatic, no facial trauma, neck is supple. RESPIRATORY respiratory effort normal, speaks in full sentences, no tripod position, no accessory muscle use. Lungs clear to auscultation without rhonchi, wheezes, rales CARDIAC Regular rate and rhythm, no edema. ABDOMINAL Soft, ND/NT. No evidence of fluid wave. No pulsatile masses on exam, rebound tenderness, Naylor sign or pain over Mcburney's point. MUSCLES/EXTREMITIES No abnormal range of motion, no swelling. SKIN Warm, pink and dry. No rashes, dermatoses, petechiae or lesions. NEUROLOGICAL Speech is clear and appropriate. Normal level of consciousness. Gait and coordination are normal. 5/5 strength in all extremities. PSYCH Normal mood and affect. Judgement/competence is appropriate Nose tender to palpation. Coding Level of Care Code Est Pt Level 3 (92956) Diagnoses Nose pain J34.89 Time Spent (min) 20 Assessment & Plan Assessment & Plan (1) Nose pain: Code(s): J34.89 - Other specified disorders of nose and nasal sinuses Category: Medical Plan: Nasonex, Continue Cetrizine. Xray face to rule out bone injury. Plan I discussed with the patient that the symptoms are consistent with sinusitis and recommended using Nazonax nasal spray twice daily. I advised continuing cetirizine and planned an x-ray of the face to further evaluate the condition. A follow-up appointment was scheduled in two weeks to assess symptom improvement, with instructions to contact us if symptoms do not improve. Medications: New mometasone 50 mcg/actuation (Nasonex 24hr Allergy) administer into each nostril 2 sprays intranasal BID 17 grams 0RF Refilled cetirizine (Zyrtec) 10 mg PO DAILY PRN 30 tabs 8RF allergy symptoms ibuprofen 600 mg PO Q6-8H PRN 20 tabs 0RF pain
[2025-02-16 15:38] VITALS: BP 120/68; PULSE 95; TEMP 36.3; O2SAT 95; BMI 31.0
== END 2025-02-16 15:57 | disposition home or self-care (01) ==
LOC: HO.HMCH 15:22
PROVIDERS: PCP Internal Medicine; Visit Provider Internal Medicine
DX: J34.89 Other specified disorders of nose and nasal sinuses (principal)

== ENCOUNTER → 2025-02-16 15:21 | Outpatient (BNVA) | payer OTHER, SELFPAY | PROVIDERS: PCP Internal Medicine; Visit Provider Internal Medicine | DX: J34.89 Other specified disorders of nose and nasal sinuses (principal); Z72.0 Tobacco use | CPT/HCPCS: 99212 ==

== ENCOUNTER 2025-02-18 00:10 | Emergency (ER) | payer OTHER, SELFPAY ==
[2025-02-18 00:20] VITALS: BP 119/90; PULSE 91; RESP 20; TEMP 36.1; O2SAT 95; BMI 22.8
--- NOTE | 2025-02-18 00:29 | ED_ITS ---
HPI - Alcohol General Stated Complaint: ETOH Time Seen by Provider: 02/18/25 00:12 Source: patient and EMS Mode of arrival: EMS Limitations: no limitations History of Present Illness ED Provider: Dr. Jael Willis HPI narrative: Patient comes to the emergency room via ambulance. According to the patient, he walked to a police station asking them to give him a ride to take him home. PD called EMS and they brought him to the emergency room. Patient very upset, states that he does not want to be here. Patient admits that he has been drinking alcohol but does not need to be here. Patient refusing in his services. Earlier today, he said to the EMS crew that he was hallucinating. However, here in the emergency room, he denies any hallucinations, denies SI or HI. Related Data Home Medications ?Medication ?Instructions ?Recorded ?Confirmed nystatin 100,000 unit/mL oral 5 ml buccal qid PRN 10/2702/16/25 suspension Previous Rx's ?Medication ?Instructions ?Recorded thiamine HCl (vitamin B1) 100 mg 100 mg PO DAILY 30 da ys #30 tabs 05/16/20 tablet albuterol sulfate 2.5 mg/0.5 mL 2.5 mg (0.5 mL) contin uous 05/16/22 solution for nebulization nebulization QID PRN shortne ss of breath or wheezing 30 days #120 ea acetaminophen 325 mg capsule 650 mg (2 x 325 mg) PO Q4 H PRN 02/26/23 fever or pain #20 caps fluticasone furoate 200 1 inh inhalation DAILY 30 da ys #60 07/07/23 mcg-vilanterol 25 mcg/dose ea inhalation powder (Breo Ellipta) montelukast 10 mg tablet 10 mg PO DAILY 90 days #90 t abs 07/08/23 omeprazole 20 mg capsule,delayed 20 mg PO DAILY #90 ca ps 10/13/23 release Symbicort 160 mcg-4.5 2 puff inhalation BID 30 day s 06/13/24 mcg/actuation HFA aerosol inhaler #10.2 grams (budesonide-formoterol) albuterol sulfate 90 mcg/actuation 2 puff PO Q6-8H PRN shortness of 06/13/24 aerosol inhaler breath or wheezing 30 days # 8.5 grams atorvastatin 10 mg tablet 10 mg PO DAILY 90 days #90 t abs 02/17/25 trazodone 50 mg tablet 50 mg PO BEDTIME PRN insomni a 30 12/14/24 days #30 tabs loratadine 10 mg tablet 10 mg PO DAILY PRN allergy 0 12/30/24 symptoms 90 days #90 tabs fenofibrate 160 mg tablet 160 mg PO DAILY 90 days #90 tabs 12/31/24 cholecalciferol (vitamin D3) 50 50 mcg PO DAILY 90 day s #90 caps 01/06/25 mcg (2,000 unit) capsule cetirizine 10 mg tablet (Zyrtec) 10 mg PO DAILY PRN al lergy 02/16/25 symptoms #30 tabs ibuprofen 600 mg tablet 600 mg PO Q6-8H PRN pain #20 tabs 02/16/25 mometasone 50 mcg/actuation nasal 2 spray intranasal B ID #51 grams 02/17/25 spray Allergies Allergy/AdvReac Type Severity Reaction Status Date / Time ENVIRONMENTAL Allergy Mild ITCHY Uncoded 02/16/25 15:38 THROAT Review of Systems Review of Systems: Constitutional : No Weight loss, No Fever, No Chills, No Night Sweats, No Fatigue, No Malaise ENT/Mouth : No Hearing loss, No Ear Pain, No Nasal Congestion, No Sinus Pain, No Hoarseness, No sore throat, No Rhinorrhea, No Swallowing Difficulty Eyes: No Eye Pain, No Swelling, No Redness, No Foreign Body, No Discharge, No Vision Changes Cardiovascular : No Chest Pain, No SOB, No Dyspnea on Exertion, No Orthopnea, No Edema, No Palpitations Respiratory : No Cough, No Sputum, No Wheezing, No Smoke Exposure, No Dyspnea Gastrointestinal : No Nausea, No Vomiting, No Diarrhea, No Constipation, No abdominal Pain, No Hematochezia, No Melena Genitourinary : no irregular bleeding, No Dysuria, No Urinary Frequency, No Hematuria, No Urinary Incontinence, No Urgency, No Flank Pain, No Urinary Flow Changes, No Hesitancy Musculoskeletal : No joint pain, No Myalgias, No Joint Swelling Skin : No Skin Lesions, No rash Neuro : No Weakness, No Numbness, No Paresthesias, No Loss of Consciousness, No Dizziness, No Headache Psych : No Anxiety/Panic, No Depression, No SI/HI/AH/VH, admits to drinking alcohol and occasionally using cocaine Heme/Lymph: No Bruising, No Bleeding,No Lymphadenopathy Endocrine : No Polyuria, No Polydipsia, No Temperature Intolerance [facility] Past Medical History Medical History Hyperbilirubinemia Asthma Lymphadenopathy Mixed hyperlipidemia Elevated LFTs Alcoholism GERD without esophagitis Obesity (BMI 30-39.9) Anxiety Insomnia Gout Sarcoidosis Pure hypercholesterolemia Surgical History (Updated 02/16/25 @ 15:43 by LIBBY Strickland) History of carpal tunnel surgery Family History Family History Father No problems noted. Mother Diabetes Social History Social History Housing: House Alcohol intake: current Alcohol intake frequency: a few times a week Alcohol type: beer Patient Tobacco Use Status: Current someday Tobacco user Tobacco use type: Cigarette Cigarette Packs Per Day: 0.25 Cigarettes Per Day: 2 e-Cigarette/Vaping Use: Never Used Second Hand Smoke Exposure: Yes Substance Use Type: Former Substance User Advance Directives: No Advance Directives Information Provided: No service: No Current occupational status: disabled Current occupation: rt handed Cognitive needs: No Hearing needs: No Vision needs: Yes Physical Exam ED Exam Exam: Appearance: Alert. Oriented X3. No acute distress. Eyes: Pupils equal, round and reactive to light. ENT: Pharynx normal. Neck: Normal inspection. Neck supple. No lymph nodes noted. No crepitus CVS: Normal heart rate and rhythm. Pulses normal. Normal S1 and S2 Respiratory: No respiratory distress. Breath sounds normal. No Wheezing. No rales Abdomen: Soft and nontender. No rigidity. No distention. Skin: Skin warm and dry. Normal skin color. Normal skin turgor. Extremities: No lower extremity edema. No Lacerations. No Rash Neuro: Oriented X 3. No motor deficit. No sensory deficit. Moving all extremities. No slurred speech. CN 2 through 12 grossly intact, ambulatory Psych: calm, cooperative, angry because he was forced to come to the emergency room Medical Decision Making Medical Decision Making MDM Narrative: Patient was brought to emergency room by EMS. As mentioned above, he walked into the police station asking for a ride home and instead they called EMS and was brought to the ED. Patient admits that he has been drinking alcohol and using cocaine. Patient states that he is not SI, no HI, patient refusing any services. Patient very upset that he was forced to come. Overall, patient is awake, alert and oriented x3, coherent, denies SI or HI. Patient has normal steady unassisted gait. Patient has refused the alternative of sitting in the ED until tomorrow. Patient states that he is going to walk to [place]. Patient states that it is a long walk but does not want to be here in the emergency room, patient states that he does not want us to contact any family members. Overall, patient's vitals stable, patient is alert and oriented x3, calm, cooperative, coherent, normal steady gait. I do not see any reason to section 12 the patient or force him to stay in the emergency room, patient is clinically sober Discharge Plan Discharge Clinical Impression: Alcohol intoxication Patient Disposition: Home, Self-Care Instructions: Alcohol Intoxication (DC) Additional Instructions: Alcohol use disorder You were seen in the Emergency Department today for treatment of alcohol use disorder.? You may have been given medications to help with your withdrawal symptoms.? Please do not drink alcohol with them. This is very dangerous and can cause respiratory depression or other adverse reactions depending on the medication. If you would like to cut down or stop your alcohol use please consider calling our outpatient Addiction Treatment office:? [facility] (M-F 9a-5p) [address] [place] [address] [address] You have also been given a list of treatment providers in the area that can assist as well.? If you experience seizures, vomiting blood, black stools, falls, severe headache, chest pain, fevers, trouble breathing, hallucinations or any other concerns you need to call 911 or seek immediate care. Please stay hydrated. Prescriptions: No Action omeprazole 20 mg capsule,delayed release(DR/EC) 20 mg PO DAILY Qty: 90 1RF trazodone 50 mg tablet 50 mg PO BEDTIME PRN (Reason: insomnia) 30 Days Qty: 30 3RF fenofibrate 160 mg tablet 160 mg PO DAILY 90 Days Qty: 90 1RF cholecalciferol (vitamin D3) 50 mcg (2,000 unit) capsule 50 mcg PO DAILY 90 Days Qty: 90 3RF mometasone 50 mcg/actuation spray,non-aerosol 2 spray intranasal BID Qty: 51 0RF thiamine HCl (vitamin B1) 100 mg tablet 100 mg PO DAILY 30 Days Qty: 30 12RF albuterol sulfate 2.5 mg/0.5 mL solution for nebulization 2.5 mg continuous nebulization QID PRN (Reason: shortness of breath or wheezing) 30 Days Qty: 120 3RF Rx Instructions: 4 times a day as needed fluticasone furoate-vilanterol [Breo Ellipta] 200-25 mcg/dose blister with device 1 inh inhalation DAILY 30 Days Qty: 60 11RF montelukast 10 mg tablet 10 mg PO DAILY 90 Days Qty: 90 3RF acetaminophen 325 mg capsule 650 mg PO Q4H PRN (Reason: fever or pain) Qty: 20 0RF loratadine 10 mg tablet 10 mg PO DAILY PRN (Reason: allergy symptoms) 90 Days Qty: 90 3RF nystatin 100,000 unit/mL suspension 5 ml buccal qid PRN Rx Instructions: administer 1/2 of dose in each side of the mouth cetirizine [Zyrtec] 10 mg tablet 10 mg PO DAILY PRN (Reason: allergy symptoms) Qty: 30 8RF ibuprofen 600 mg tablet 600 mg PO Q6-8H PRN (Reason: pain) Qty: 20 0RF albuterol sulfate 90 mcg/actuation HFA aerosol inhaler 2 puff PO Q6-8H PRN (Reason: shortness of breath or wheezing) 30 Days Qty: 8.5 12RF atorvastatin 10 mg tablet 10 mg PO DAILY 90 Days Qty: 90 1RF budesonide-formoterol [Symbicort] 160-4.5 mcg/actuation HFA aerosol inhaler 2 puff inhalation BID 30 Days Qty: 10.2 11RF Print Language: Nepali
--- NOTE | 2025-02-18 00:50 | PC.NURSE ---
pt left after v/s were obtained. he ambulated from department without assistance or c/o voiced. alert and oriented at time of departure. unable to obtain history or any further information as patient only agreed to have his v/s checked. stable condition upon leaving department at this time
== END 2025-02-18 00:35 | disposition home or self-care (01) ==
PROVIDERS: Emergency Provider Emergency Medicine; PCP Internal Medicine
DX: F10.129 Alcohol abuse with intoxication, unspecified (principal); E78.5 Hyperlipidemia, unspecified; F41.9 Anxiety disorder, unspecified; J45.909 Unspecified asthma, uncomplicated; F17.200 Nicotine dependence, unspecified, uncomplicated; Z71.6 Tobacco abuse counseling
CPT/HCPCS: 99281; 99282

== ENCOUNTER 2025-03-15 10:52 | Outpatient (REF) | payer OTHER, SELFPAY ==
--- NOTE | ~2025-03-15 | XR_ITS ---
EXAMINATION: XR CHEST CLINICAL INFORMATION: R05.9 - Cough, unspecified. Prior reports indicate history of sarcoidosis. COMPARISON: Previous chest CT January 2025 and chest x-ray July 2023 TECHNIQUE: 2 views of the chest were obtained. FINDINGS: The lungs are clear. No consolidation or pulmonary edema. Cardiac silhouette does not appear enlarged. There is increased soft tissue in the mediastinum and bilateral hilar regions corresponding to diffuse lymphadenopathy. This is similar to recent CT. No pleural effusion or pneumothorax. Bony structures are unremarkable. XR/XR chest 2V IMPRESSION: No evidence for acute disease in the chest. Bilateral hilar and mediastinal lymphadenopathy similar to prior exams likely related to patient's history of sarcoidosis. Electronically signed by: Kristina Pelayo MD 03/15/2025 12:14 PM KEON
[2025-03-15 13:58] LABS: Resp Syncy Virus RNA Qual PCR NEGATIVE (Negative); SARS COV2 PCR INHOUSE NEGATIVE (Negative)
== END 2025-03-15 10:53 | disposition home or self-care (01) ==
LOC: HO.HMGCX 10:52
PROVIDERS: PCP Internal Medicine; Visit Provider Physician Assistant Medical
DX: R05.1 Acute cough (principal); R09.89 Other specified symptoms and signs involving the circulatory and respiratory systems; R06.02 Shortness of breath; R06.2 Wheezing; F17.210 Nicotine dependence, cigarettes, uncomplicated
CPT/HCPCS: 71046; 87637; 99212

== ENCOUNTER 2025-03-15 10:52 | Outpatient (AMB) | payer OTHER, SELFPAY ==
[2025-03-15 10:57] VITALS: BP 122/66; PULSE 92; TEMP 36.8; O2SAT 97; BMI 26.6
--- NOTE | 2025-03-15 10:57 | AM.OFFWIN_ITS ---
Intake Vital Signs 03/15/25 10:57 Height 5 ft 8 in Weight 175 lb BMI 26.6 BP 122/66 Blood Pressure Location Rt brachial Position Sitting Pulse 92 Pulse Source Pulse Oximeter Temp 98.2 F Temp Source Oral Pulse Oximetry (%) 97 Oxygen Delivery Method Room Air Intake Visit Reasons: EP Cough, fatigue Intake Note: Patient presents c/o cough, fever, nasal congestion, chest congestion, SOB/wheezing x4 days Patient Tobacco Use Status: Current someday Tobacco user Allergies ENVIRONMENTAL Allergy (Mild, Uncoded 03/15/25 10:59) ITCHY THROAT HPI HPI Comments History of Present Illness Details History - The patient is a 54-year-old male pres enting with a cough and congestion. - Symptoms began four days ago and inclu de cough, congestion, and chest pain. - The cough is productive with phlegm, a nd the patient experiences chills but no fever. - The patient has a history of asthma an d occasionally smokes. - The patient uses an inhaler and report s shortness of breath and wheezing. - Preventative care measures such as inf luenza and COVID-19 vaccinations have not been received this year. - His is also sick at home. - He denies fever, CP, SOB, abd pain, n/ v/d, sore throat, or ear pain. Physical Exam General: Cooperative, healthy appearing, comfortable and no acute distress Orientation/consciousness: Patient oriented x3 Limitations: No limitations Head: Normal to inspection Ears: Hearing grossly normal bilaterally, external ears normal and TM's normal bilaterally Nose: Normal external nose present, normal nares present, and no nasal discharge present. Face and sinus: Sinuses nontender to palpation. Mouth: Normal oral and palatal mucosa present and moist mucous membranes noted. Throat: Tonsils normal. Uvula is midline. Posterior oropharynx with erythema and no exudates. Eyes: Appearance normal, both eyes and all related structures Neck: Normal visual inspection, full ROM. No lymphadenopathy noted. Respiratory: Clear to auscultation bilaterally. Normal respiratory effort, able to speak in complete sentences. No respiratory distress, not tachypneic, no tripod positioning and no use of accessory muscles. Cardiovascular: Regular rate and rhythm. Normal S1 and S2 Skin: No rashes or lesions noted Patient was informed and verbally consented to the use of an ambient scribe for clinic note documentation during this visit [facility] Medical History Hyperbilirubinemia Asthma Lymphadenopathy Mixed hyperlipidemia Elevated LFTs Alcoholism GERD without esophagitis Obesity (BMI 30-39.9) Anxiety Insomnia Gout Sarcoidosis Pure hypercholesterolemia Surgical History (Updated 02/16/25 @ 15:43 by LIBBY Strickland) History of carpal tunnel surgery Family History Father No problems noted. Mother Diabetes Social History Housing: House Alcohol intake: current Alcohol intake frequency: a few times a week Alcohol type: beer Patient Tobacco Use Status: Current someday Tobacco user Tobacco use type: Cigarette Cigarette Packs Per Day: 0.25 Cigarettes Per Day: 2 e-Cigarette/Vaping Use: Never Used Second Hand Smoke Exposure: Yes Substance Use Type: Former Substance User service: No Current occupational status: disabled Current occupation: rt handed Cognitive needs: No Hearing needs: No Vision needs: Yes Review of Systems Const All systems reviewed & are unremarkable except as noted in HPI and below Physical Exam Vital Signs: Last Vital Signs Temp 98.2 F 03/15/25 10:57 Pulse 92 03/15/25 10:57 BP 122/66 03/15/25 10:57 Pulse Ox 97 03/15/25 10:57 Oxygen Delivery Method Room Air 03/15/25 10:57 BMI result Body Mass Index 26.6 Results Reviewed Results Reviewed: will review the x-ray in the office Assessment & Plan Assessment & Plan (1) Cough: Code(s): R05.9 - Cough, unspecified Qualifiers: Cough type: acute Qualified Code(s): R05.1 - Acute cough Plan Most likely asthma exacerbation vs CAP vs URI vs bronchitis vs viral illness plan - Continue use of inhaler as needed for wheezing and shortness of breath. - Prescribed prednisone to manage inflammation. - Prescribed cough medicine and decongestant for symptom relief. - Recommended COVID-19, influenza, and RSV testing to rule out other infections. - Advised chest X-ray if symptoms persist or worsen. - will call with the results and treat accordingly. - follow up with PCP Orders: Orders XR chest 2V Today R05.9 - Cough, unspecified SARS-CoV2/FLU/RSV Today R09.89 - Other specified symptoms and signs involving the circulatory and respiratory systems Medications: New benzonatate 100 mg PO bid-tid PRN 21 caps 0RF Cough 7 days ibuprofen 800 mg PO Q8H PRN 21 tabs 0RF pain 7 days cetirizine-pseudoephedrine 5-120 mg ER 1 tab PO BID 14 tabs 0RF 7 days prednisone 40 mg (2 x 20 mg) PO DAILY 10 tabs 0RF 5 days Coding Level of Care Code Est Pt Level 4 (84055) Diagnoses Acute cough R05.1 Cough type: acute
== END 2025-03-15 11:59 | disposition home or self-care (01) ==
PROVIDERS: PCP Internal Medicine; Visit Provider Physician Assistant Medical
DX: R05.1 Acute cough (principal)

== ENCOUNTER → 2025-03-15 11:35 | Outpatient (BNV) | payer OTHER, SELFPAY | PROVIDERS: PCP Internal Medicine; Visit Provider Radiology Diagnostic Radiology | DX: R05.9 Cough, unspecified (principal) | CPT/HCPCS: 71046 ==

== ENCOUNTER 2025-04-17 14:49 | Outpatient (AMB) | payer OTHER, SELFPAY ==
[2025-04-17 15:03] VITALS: BP 130/60; PULSE 88; O2SAT 96; BMI 27.3
--- NOTE | 2025-04-17 15:03 | MHC.OFFVIS ---
Vital Signs 04/17/25 15:03 Height 5 ft 8 in Weight 179 lb 10.828 oz BMI 27.3 BP 130/60 Blood Pressure Location Rt brachial Position Sitting Pulse 88 Pulse Source Pulse Oximeter Pulse Oximetry (%) 96 Oxygen Delivery Method Room Air Intake Visit Reasons: Sarcoidosis Acidizer Required: Yes Acidizer Services: Acidizer Offered & Declined Acidizer Name: MD speaks macedonian Commercial Light Fixture Assembler: Commercial Light Fixture Assembler offered & declined Accompanied by: Self / Same As Patient Allergies ENVIRONMENTAL Allergy (Mild, Uncoded 03/15/25 10:59) ITCHY THROAT HPI Comments Details: The patient is a 52-year-old gentleman with a known history of mediastinal hilar adenopathy in addition to rash the suspicion of sarcoidosis. Apparently the patient she which she cough shortness of breath for the last few months. Feels like the symptoms are getting worse. He require prednisone. We did review his CT scan of the chest from 2013 which demonstrated a significant lymphadenopathy in the mediastinum largest paratracheal lymph node measuring 2.5 cm in size. The patient has never had any diagnostic interventions for the lymphadenopathy that he is aware of. He does have a rash that appears to be papular in his lower extremity on the left side. He is scheduled to see Dermatology. He denies having a biopsy in the past. Although very suspicious for sarcoidosis. The patient has been using a rescue inhaler with partial improvement of the symptoms. Will go ahead and start him on a combination inhaler and also request a repeat CT scan to assess the lymphadenopathy and assess for further possibilities are progression of sarcoidosis. Indeed the patient may have endobronchial sarcoid in a bronchoscopy may be warranted to further address that issue. The patient is also having significant allergies. His eosinophils are elevated. Is not clear if this is all 1 process or if he has concomitant eosinophilic asthma. 01/30/2023 the patient is here for a pulmonary follow-up visit. Overall the patient has been complaining of worsening cough and shortness of breath. He has a hard time with a cough because it affects his work. He has been more congested lately. He has been off some phlegm. We did review his last CT scan of the chest that he had back in 2022 which is reassuring did have some lymphadenopathy but no significant pneumonitis or significant pulmonary nodules to be concerned about. He has been on maintenance inhalers for the asthma but subsequently stopped using it. Again we talked about the possibility of endobronchial sarcoid which can mimic asthma. At this point the treatment will be the same. Patient does have a rash which is consistent with sarcoid. He had a steroid cream that he was putting on the rash. Will go ahead and start the patient on antibiotic and also maintenance inhaler. If the patient is no better he can start Medrol Gerhard. Will follow-up in 6 months. 04/17/2025 the patient is here for pulmonary follow-up visit. The patient continues to have abnormal findings on his CAT scan. Apparently he did have a repeat CAT scan January 2025 demonstrating persistent mediastinal and hilar lymphadenopathy. Likely suspicious for sarcoid. Also has other pulmonary nodules. Appears to have some degree of progression. Therefore, it is reasonable to sample the lymph nodes to see exactly if this is sarcoid and confirmed her diagnosis. The patient also can be assess for endobronchial sarcoid. Right now he is doing okay as far as symptom mcfarlane denies any wheezing or coughing. Denies any shortness of breath he denies any night sweats. He denies any weight loss. Will go ahead and plan for bronchoscopy after the holidays to confirm a diagnosis for him. Will follow-up after the bronchoscopy so we can review the results. [facility] Medical History Hyperbilirubinemia Asthma Lymphadenopathy Mixed hyperlipidemia Elevated LFTs Alcoholism GERD without esophagitis Obesity (BMI 30-39.9) Anxiety Insomnia Gout Sarcoidosis Pure hypercholesterolemia Surgical History (Updated 02/16/25 @ 15:43 by LIBBY Strickland) History of carpal tunnel surgery Family History Father No problems noted. Mother Diabetes Social History Housing: House Alcohol intake: current Alcohol intake frequency: a few times a week Alcohol type: beer Patient Tobacco Use Status: Current someday Tobacco user Tobacco use type: Cigarette Cigarette Packs Per Day: 0.25 Cigarettes Per Day: 2 e-Cigarette/Vaping Use: Never Used Second Hand Smoke Exposure: Yes Substance Use Type: Former Substance User service: No Current occupational status: disabled Current occupation: rt handed Cognitive needs: No Hearing needs: No Vision needs: Yes Review of Systems Const Denies chills, Reports fatigue, Denies fever(s), Denies headache(s), Denies night sweats, Denies poor appetite and Reports weight loss ENT Denies dysphagia, Denies dizziness, Denies otalgia, Denies headache(s), Denies sinus pain and Denies sore throat Card Denies chest pain, Denies palpitations and Reports dyspnea on exertion Resp Denies chest congestion (chest feels tight often lately), Reports cough (on and off, non-productive), Reports dyspnea on exertion and Reports wheezing (recurrent) GI Denies abdominal pain, Denies constipation, Denies dysphagia, Denies heartburn, Denies diarrhea, Denies nausea and Denies vomiting Denies dysuria and Denies nocturia Musc Denies arthralgias Skin/Breast Details: (+) dark raised skin lesions on the left leg - increasing in number lately Neuro Denies dizziness and Denies headache(s) Endo Reports fatigue and Denies palpitations Aller/Immun Reports wheezing (recurrent) Physical Exam Vital Signs: Last Vital Signs Pulse 88 04/17/25 15:03 BP 130/60 04/17/25 15:03 Pulse Ox 96 04/17/25 15:03 Oxygen Delivery Method Room Air 04/17/25 15:03 BMI result Body Mass Index 27.3 Const General: cooperative and healthy appearing Nutritional Appearance: well nourished Orientation/consciousness: patient oriented x3 Limitations: no limitations HEENT Head: Yes normal to inspection Eyes General: appearance normal, both eyes and all related structures Neck Neck: Yes normal visual inspection Chest Chest palpation & inspection: normal inspection of the chest Resp Effort & Inspection: normal respiratory effort Auscultation: clear to auscultation bilaterally Cardio Heart sounds: S1 normal heart sound present and S2 normal heart sound present GI Palpation (GI): Soft to palpation Skin General skin exam: no rashes or lesions noted Neuro General: patient oriented x3 Assessment & Plan Assessment & Plan (1) Lymphadenopathy: Code(s): R59.1 - Generalized enlarged lymph nodes Category: Medical (2) Asthma: Code(s): J45.909 - Unspecified asthma, uncomplicated Category: Medical Qualifiers: Asthma severity: moderate Asthma persistence: persistent Asthma complication type: with acute exacerbation Qualified Code(s): J45.41 - Moderate persistent asthma with (acute) exacerbation Plan continue Breo HOLLI as needed EBUS bronchoscopy to sample mediastinal and hilar LN F/U 2 months Coding Level of Care Code Est Pt Level 5 (30401) Diagnoses Lymphadenopathy R59.1 Moderate persistent asthma with acute exacerbation J45.41 Asthma severity: moderate Asthma persistence: persistent Asthma complication type: with acute exacerbation Time Spent (min) 40
== END 2025-04-17 15:41 | disposition home or self-care (01) ==
LOC: HO.HPS 14:50
PROVIDERS: PCP Internal Medicine; Referring Provider Internal Medicine; Visit Provider Hospitalist
DX: R59.1 Generalized enlarged lymph nodes (principal); J45.41 Moderate persistent asthma with (acute) exacerbation
CPT/HCPCS: 99215

== ENCOUNTER → 2025-04-17 14:49 | Outpatient (BNVA) | payer OTHER, SELFPAY | PROVIDERS: PCP Internal Medicine; Referring Provider Internal Medicine; Visit Provider Hospitalist | DX: R59.1 Generalized enlarged lymph nodes (principal); J45.41 Moderate persistent asthma with (acute) exacerbation; F17.210 Nicotine dependence, cigarettes, uncomplicated; Z79.899 Other long term (current) drug therapy | CPT/HCPCS: 99212 ==